=== PATIENT | male | born 1975 | race Caucasian/White ===

== ENCOUNTER 2018-07-05 22:42 | Emergency (ER) | END 2018-07-06 02:38 | disposition home or self-care (01) ==

== ENCOUNTER 2018-12-24 19:21 | Inpatient (IN) | payer OTHER ==
[~2018-12-24] VITALS: Ht 172.7 cm; Wt 99.9 kg
[~2018-12-24 19:21] MED LIST: GABA300C16 PO
[2018-12-24] MEDS ORDERED: VANCOMYCIN 1 GM (PMX) 250 ML IVPB STA (20:28)
[2018-12-24] MEDS ORDERED: CLINDAMYCIN 900 MG/D5W (PMX) 50 ML IVPB STA (20:28)
[2018-12-24] MEDS ORDERED: SODIUM CHLORIDE 0.9% 1L BAG IV* STA (20:28)
[2018-12-24] MEDS ORDERED: PIPER-TAZO 3.375 GM IV (PMX) 100 ML IVPB STA (20:28)
[2018-12-24] MEDS ORDERED: METF500T24 PO (20:56)
[2018-12-24] MEDS ORDERED: GLIP10TA14 PO (20:56)
[2018-12-24] MEDS ORDERED: ONDANSETRON 4 MG INJ IV PRN ×2 (21:30→23:30)
[2018-12-24] MEDS ORDERED: ACETAMINOPHEN 325 MG TAB PO PRN (21:30)
--- NOTE | 2018-12-24 22:35 | ERD ---
ER Documentation Chief Complaint Chief Complaint left foot wound check, states infection x 1 week HPI 43-year-old diabetic who presents to the emergency room with 1 week of a wound to the left lateral foot. The wound is increasing in redness drainage and discharge. He has no significant pain. No fevers or chills. He does not fo llow with a bodybuilder. ROS All systems reviewed and are negative except as per history of present illness. 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 Eyes: EOM intact ENT: Moist mucous membranes Neck: Full ROM Respiratory: No respiratory distress Cardiovascular: Well perfused distally Abdominal: Nondistended : Deferred MSK: Patient's left foot has edema, significant wound and drainage to the left lateral foot near the fifth toe, ulceration on the dorsum of the foot is noted. Neurologic: Alert and oriented, moving all extremities, normal speech, steady gait Skin: As noted above Psych: Normal mood Result Diagram: 12/24/18203412/24/182034 Results 24 hrs Laboratory Tests Test 12/24/18 20:35 12/24/18 20:43 12/24/18 21:00 White Blood Count 19.9 10^3/ul Red Blood Count 4.79 10^6/ul Hemoglobin 13.0 g/dl Hematocrit 39.2 % Mean Corpuscular Volume 81.8 fl Mean Corpuscular Hemoglobin 27.1 pg Mean Corpuscular 33.2 g/dl Hemoglobin Concent Red Cell Distribution Width 12.9 % Platelet Count 210 10^3/UL Mean Platelet Volume 12.0 fl Immature Granulocytes % 0.700 % Neutrophils % 83.3 % Lymphocytes % 8.9 % Monocytes % 6.6 % Eosinophils % 0.2 % Basophils % 0.3 % Nucleated Red Blood Cells % 0.0 /100WBC Immature Granulocytes # 0.140 10^3/ul Neutrophils # 16.6 10^3/ul Lymphocytes # 1.8 10^3/ul Monocytes # 1.3 10^3/ul Eosinophils # 0.0 10^3/ul Basophils # 0.1 10^3/ul Nucleated Red Blood Cells # 0.0 10^3/ul Prothrombin Time 14.1 Sec Prothrombin Time Ratio 1.1 INR International 1.08 Normalized Ratio Activated Partial Thromboplast 41.6 Sec Time Sodium Level 134 mmol/L Potassium Level 3.9 mmol/L Chloride Level 95 mmol/L Carbon Dioxide Level 26 mmol/L Anion Gap 13 Blood Urea Nitrogen 11 mg/dl Creatinine 0.59 mg/dl Est Glomerular Filtrat > 60 mL/min Rate mL/min Glucose Level 331 mg/dl Calcium Level 9.5 mg/dl C-Reactive Protein 26.7 mg/dl POC Venous Lactate 2.2 mmol/L Urine Color YELLOW Urine Clarity SLIGHTLY CLOUDY Urine pH 5.0 Urine Specific [place] 1.037 Urine Ketones 2+ mg/dL Urine Nitrite POSITIVE mg/dL Urine Bilirubin NEGATIVE mg/dL Urine Urobilinogen 1+ mg/dL Urine Leukocyte Esterase 2+ Sweta/ul Urine Microscopic RBC > 182 /HPF Urine Microscopic WBC 94 /HPF Urine Squamous Epithelial Cells FEW /HPF Urine Hemoglobin 3+ mg/dL Urine Glucose 3+ mg/dL Urine Total Protein 2+ mg/dl Current Medications Medications Dose Sig/Jose Start Time Status Last (Trade) Ordered Route PRN Stop Time Admin Dose Reason Admin Sodium 2,050 ml BOLUS OVER 2 12/24/18 DC 12/24/18 Chloride HOURS STAT 20:28 12/24/18 21:07 (NS) IV* 20:30 Vancomycin 250 ml @ ONCE STAT 12/24/18 DC HCl 125 mls/hr IVPB 20:28 12/24/18 22:27 Clindamycin 50 ml @ 50 ONCE STAT 12/24/18 DC 12/24/18 HCl/ mls/hr IVPB 20:28 12/24/18 21:07 Dextrose 21:27 Piperacillin 100 ml @ ONCE STAT 12/24/18 DC Sod/ 200 mls/hr IVPB 20:28 12/24/18 Tazobactam 20:57 Sod Ondansetron 4 mg BRIDGE ORDER 12/24/18 HCl (Zofran PRN IV 21:30 12/25/18 Inj) NAUSEA/VOMITI 21:29 NG 650 mg ER BRIDGE 12/24/18 Acetaminophen PRN PO 21:30 12/25/18 (Tylenol .MILD PAIN 21:29 Tab) 1-3 OR TEMP Insulin 10 unit ONCE ONCE 12/24/18 Human SC 23:00 12/24/18 Lispro 23:01 (Humalog) Procedures/MDM EKG, MONITORS, & DIAGNOSTIC IMAGING: EKG: I reviewed and interpreted a 12-lead EKG. Rhythm: Normal sinus rhythm ST Changes: No contiguous ST segment elevations T waves: No contiguous T wave inversions Impression: No evidence of acute cardiac ischemia X-ray left foot: IMPRESSION: 1. No radiographic evidence of osteomyelitis. If osteomyelitis is persistent clinical concern, MRI or three-phase bone scintigraphy could be obtained. 2. Diffuse soft tissue swelling. LAB INTERPRETATION: Laboratory testing reviewed showing evidence of leukocytosis with left shift Lactic acid elevation of 2.2, normal renal function, hyperglycemia without diabetic ketoacidosis MEDICAL DECISION MAKING: The patient has an obvious infection of his left foot and needs to be evaluated for osteomyelitis. No evidence of necrotizing fasciitis. ER COURSE: * Broad-spectrum antibiotics were provided after blood cultures * Patient does qualify for sepsis. Lactic acid is slightly elevated. Patient given a 30 cc/kg bolus of saline * Patient does have some ketones in the urine but no evidence of anion gap acidosis. Patient does not qualify for diabetic ketoacidosis but will benefit from Humalog which was provided. CONSULTATION: None DISPOSITION PLAN: Accepting care team and consultations: I discussed the current laboratory data, diagnostic imaging and emergency care provided. Admitting team: Dr. Lam Admitting team indication: Insurance directed Sepsis Documentation: Patient's infectious symptoms have not stabilized and the patient is at risk of rapid decompensation. The patient will be admitted for careful hydration, antibiotic therapy, and infectious source control. SEVERE SEPSIS CRITERIA: Infectious source: Left foot cellulitis End organ damage indicated by: [Lactate > 2.0 mmol/L SEPSIS MANAGEMENT Time of recognition of sepsis: Upon MD assessment. Time of recognition of severe sepsis: 2042 Time of recognition of septic shock: No septic shock at this time. 3 HOUR BUNDLE Blood cultures x 2 before broad-spectrum antibiotics: Yes 30 ml/kg NS bolus completed Initial lactate 2.2 Repeat lactate pending repeat SEPTIC SHOCK ASSESSMENT: No lactic acid > 4.0 No persistent hypotension (SBP < 90 or 40 mmHg drop, MAP < 65) despite 30 mL/kg IV fluid bolus VOLUME REASSESSMENT FOR SEPTIC SHOCK: The patient does not meet criteria for septic shock in the emergency department at this time PERSISTENT HYPOTENSION TREATMENT: Comfort care no Central line not Required Vasopressor started not required I considered further perfusion assessment with CVP measurement, SCVO2, bedside ultrasound volume assessment, passive leg raise, trial of further fluid bolus. And proceeded with 30 ml/kg fluid bolus of NSS, broad spectrum antibiotics, and admission. CRITICAL CARE Critical care time 35 minutes Emergent fluid management while maintaining close respiratory support. Provision of immediate and broad-spectrum antibiotic therapy. Simultaneous assessment for possible sources in order to direct targeted therapy. Consideration for invasive and chemical support to prevent cardiopulmonary collapse. Critical care time is independent of procedures performed. Departure Diagnosis: Primary Impression: Diabetic foot ulcer Diabetic foot ulcer location: other Diabetes mellitus type: other specified (including BRENDAN) Laterality: left Non-pressure ulcer stage: unspecified non-pressure ulcer stage Qualified Codes: E13.621 - Other specified diabetes mellitus with foot ulcer; L97.529 - Non-pressure chronic ulcer of other part of left foot with unspecified severity Additional Impressions: Cellulitis of left foot Severe sepsis Hyperglycemia Condition: Stable KULDEEP CALDERON MD Dec 24, 2018 22:35
[2018-12-24] MEDS ORDERED: INSULIN LISPRO 100 UNIT/ML VIAL SC ONE (23:00)
--- NOTE | 2018-12-24 23:15 | HP ---
Date/Time of Note Date/Time of Note DATE: 12/24/18 TIME: 23:15 Assessment/Plan VTE Prophylaxis SCD applied (from Ns): No SCD contraindicated: other (infected wound of lower extremity) Pharmacological prophylaxis: NA/contraindicated Pharm contraindication: other (Possible need for surgical procedure, though he did receive 1 dose of Lovenox) Lines/Catheters IV [facility]from [facility] Saline Lock Assessment/Plan Hospital Course This is a 43-year-old male being admitted to the [facility] floor for: #1 severe sepsis: Secondary to infected diabetic foot wound. Vancomycin and cefepime. Await culture results, wound culture. ESR, CRP. #2 left lower extremity diabetic foot wounds: Patient has a left lateral foot plantar surface wound as well as a anterior foot wound along with early necrosis of his left pinky toe. X-ray does not show any signs of ostium myelitis. Will obtain an MRI to further evaluate. We will also obtain bilateral lower extremity ultrasound Dopplers to rule out DVT and arterial Dopplers to assess flow. Will consult podiatry . #3 poorly controlled diabetes: BMP blood sugar is in the 300s upon admission. I suspect his blood sugars are likely out of control given that he also himself reports blood sugars in the 300s at home. Will check hemoglobin A1c insulin sliding scale. Initiate Lantus as indicated. Strict glycemic control. Will check urine microalbumin. #4 urinary tract infection: Currently on Vanco and cefepime as per 1. Await urine culture results. #5 obesity: We will check hemoglobin A 1C, lipid panel, TSH #6 DVT GI prophylaxis: Patient did receive a dose of Lovenox for DVT prophylaxis, the current time will hold further doses as patient likely will require surgical intervention. Will resume once cleared by podiatry. No GI prophylaxis indicated Further treatment strategy will be implemented as per the clinical course Result Diagram: 12/24/18203412/24/182034 Results 24hrs Laboratory Tests Test 12/24/18 20:35 12/24/18 20:43 12/24/18 21:00 12/24/18 22:45 White Blood Count 19.9 H Red Blood Count 4.79 Hemoglobin 13.0 L Hematocrit 39.2 L Mean Corpuscular 81.8 L Volume Mean Corpuscular 27.1 L Hemoglobin Mean Corpuscular 33.2 Hemoglobin Concent Red Cell 12.9 Distribution Width Platelet Count 210 Mean Platelet 12.0 H Volume Immature 0.700 H Granulocytes % Neutrophils % 83.3 H Lymphocytes % 8.9 L Monocytes % 6.6 Eosinophils % 0.2 Basophils % 0.3 Nucleated Red 0.0 Blood Cells % Immature 0.140 H Granulocytes # Neutrophils # 16.6 H Lymphocytes # 1.8 Monocytes # 1.3 H Eosinophils # 0.0 Basophils # 0.1 Nucleated Red 0.0 Blood Cells # Prothrombin Time 14.1 Prothrombin Time 1.1 Ratio INR International 1.08 Normalized Ratio Activated 41.[address] Time Sodium Level 134 L Potassium Level 3.9 Chloride Level 95 L Carbon Dioxide 26 Level Anion Gap 13 Blood Urea 11 Nitrogen Creatinine 0.59 L Est Glomerular > 60 Filtrat Rate mL/min Glucose Level 331 H Calcium Level 9.5 C-Reactive Protein 26.7 H POC Venous Lactate 2.2 *H 1.2 Urine Color YELLOW Urine Clarity SLIGHTLY CLOUDY A Urine pH 5.0 Urine Specific 1.037 H [place] Urine Ketones 2+ H Urine Nitrite POSITIVE A Urine Bilirubin NEGATIVE Urine Urobilinogen 1+ H Urine Leukocyte 2+ H Esterase Urine Microscopic > 182 H RBC Urine Microscopic 94 H WBC Urine Squamous FEW Epithelial Cells Urine Hemoglobin 3+ H Urine Glucose 3+ H Urine Total 2+ H Protein HPI/ROS Admit Date/Time Admit Date/Time Hx of Present Illness Chief complaint: Left foot wound times 3 weeks, worsened over the last few days This is a 43-year-old male with a past medical history of diabetes who presents today with a left foot wound over the last 3 weeks. Patient reports that approximately 3 weeks ago he had noticed a fluid-filled cyst on the plantar surface of his foot. He drained it himself and put topical antibiotics on it. He states that he did begin to improve however over the past few days he started noticing that the lesion got worse. He also started noticing purplish bluish discoloration of his left great toe and swelling. He denies any pain secondary to his neuropathy. Denies any fevers but he does report chills. He is currently only on oral medications for his diabetes, he does report that he notices at times his blood sugars being in the 300s. Allergies: NKDA Medications: See VERONICA ROS Const: As per HPI Eyes : No pain discharge or redness or change in visual acuity ENT: No pain, sore throat, congestion, congestion, dysphagia or discharge Respiratory: No shortness of breath, cough, sputum, wheezing, or pleuritic pain Cardiovascular: No chest pain, palpitation, PND, or edema GI : no change in appetite, abdominal pain, nausea, vomiting, diarrhea, constipation, or change in the color his stool Genitourinary: No dysuria, hematuria, flank pain , discharge or CVA tenderness Musculoskeletal: As per HPI Skin: As per HPI Neuro: No headache, dizziness, syncope, seizure, focal weakness Endocrine: As per HPI Psych: No hallucination, depression, anxiety or suicidal ideation PMH/Family/Social Past Medical History Diabetes mellitus with neuropathy Medications Current Medications Ondansetron HCl (Zofran Inj) 4 mg BRIDGE ORDER PRN IV NAUSEA/VOMITING; Start 12/24/18 at 21:30; Stop 12/25/18 at 21:29 Acetaminophen (Tylenol Tab) 650 mg ER BRIDGE PRN PO .MILD PAIN 1-3 OR TEMP; Start 12/24/18 at 21:30; Stop 12/25/18 at 21:29 Coded Allergies: No Known Allergy (Unverified , 12/24/18) Past Surgical History Past Surgical Hx: no surgical history Family History Significant Family History: no pertinent family hx Social History Alcohol Use: occasionally Smoking Status: Never smoker Drug Use: none Exam/Review of Systems Vital Signs Vitals Vital Signs Date Temp Pulse Resp B/P (MAP) Pulse Ox O2 O2 Flow FiO2 Time Delivery Rate 12/24/18 99.5 110 18 138/85 100 19:41 (102) Exam Exam General: Patient is a pleasant male currently lying in bed in no acute distress. HEENT: Atraumatic, normocephalic. The pupils are equal, round and reactive. Extraocular motor are intact Neck: Supple with full range of motion. No rigidity or meningismus Chest: Nontender Lungs: Clear to auscultation bilaterally no crackles rales or wheezing Heart: Normal S1-S2, Regular rhythm and rate. No murmur, S3, or S4 Abdomen: Soft , nontender, nondistended , bowel sounds are present. No guarding no rebound tenderness , No masses or organomegaly. No costovertebral temporal angle mass Extremities: Mild swelling noted of the left lower extremity, 1+ palpable pulse of the left lower extremity difficult to fully examine given patient's underlying swelling Skin: Left foot plantar infected wound approximately 2.5 x 2.5 cm, anterior foot 1 x 2 cm wound, left great toe swelling and purplish bluish discoloration. Toenail abnormalities of bilateral feet, Neurologic: Normal mental status, speech normal, cranial nerves II through XII are intact, motor and sensory are intact, Additional Comments PROCEDURE: XR left foot. CLINICAL INDICATION: Wound. TECHNIQUE: 3 portable views of the left foot were obtained. COMPARISON: None. FINDINGS: There is no acute fracture or dislocation. Osseous structures are intact. There is no bony destruction or subperiosteal new bone formation. Joint spaces are maintained. There is a small plantar calcaneal spur. There is moderate diffuse soft tissue swelling. IMPRESSION: 1. No radiographic evidence of osteomyelitis. If osteomyelitis is persistent clinical concern, MRI or three-phase bone scintigraphy could be obtained. 2. Diffuse soft tissue swelling. RPTAT:HAJM Physician Sylvie Date Time Electronically viewed and signed by Physician Sylvie on 12/24/2018 21:57 RM/ CC: KULDEEP CALDERON MD [id number] LAURI PEDERSEN Dec 24, 2018 23:15
[2018-12-24] MEDS ORDERED: morphine 2 MG INJ IV PRN (23:30)
[2018-12-24] MEDS ORDERED: VANCOMYCIN IV PER PHARMACY XX SCH (23:30)
[2018-12-24] MEDS ORDERED: DOCUSATE SODIUM 100 MG CAP PO PRN (23:30)
[2018-12-24] MEDS ORDERED: BISACODYL (EC) 5 MG TAB PO PRN (23:30)
[2018-12-24] MEDS ORDERED: HYDROCODONE/APAP (5/325) TAB PO PRN (23:30)
[2018-12-24] MEDS ORDERED: NACL 0.9% 3 ML SYG IV SCH (23:30)
[2018-12-25] VITALS: BP 118/66; PULSE 112; RESP 18
[2018-12-25 00:08] VITALS: Ht 172.7 cm; Wt 99.9 kg
[2018-12-25] MEDS: ACCU-CHEK XX SCH (01:17)
[2018-12-25] MEDS: ACETAMINOPHEN 325 MG TAB PO PRN ×2 (01:26→14:38)
[2018-12-25 02:10] VITALS: BP 138/72; PULSE 109; RESP 18
[2018-12-25] MEDS: VANCOMYCIN HCL 1.25 GM in SOD CHLORIDE 0.9% 250 ML IVPB SCH ×3 (06:17→22:23)
[2018-12-25] MEDS ORDERED: INSULIN GLARGINE [LANTus] (100 UNITS/ML) SYG SC SCH ×2 (08:00→20:00)
[2018-12-25 08:07] VITALS: BP 136/80; PULSE 108; RESP 18
[2018-12-25] MEDS: ENOXAPARIN 30 MG/0.3 ML SYG SC SCH (08:29)
[2018-12-25] MEDS: INSULIN ASPART [NOVOLOG] 3 ML PEN SC SCH ×4 (08:30→21:20)
[2018-12-25] MEDS: CEFEPIME 2GM/50 ML (PMX) 50 ML IVPB SCH ×2 (10:59→21:16)
[2018-12-25 14:23] VITALS: BP 133/81; PULSE 110; RESP 17
--- NOTE | 2018-12-25 15:32 | PN ---
Date/Time of Note Date/Time of Note DATE: 12/25/18 TIME: 15:30 Assessment/Plan VTE Prophylaxis Risk score (from Ns)>0 risk: 4 SCD applied (from Ns): No SCD contraindicated: other Pharmacological prophylaxis: LMWH Lines/Catheters IV Catheter Type (from [facility]): Peripheral IV Urinary Cath still in place: No Assessment/Plan Hospital Course SUBJECTIVE: Denies any significant left lower extremity pain. OBJECTIVE: Physical Exam General: Obese, 43 year-old male lying in bed in no apparent distress. HEENT: Normocephalic, atraumatic. Eyes: Anicteric sclerae, conjunctivae clear. ENT: Nasal septum midline, oral mucosa moist. Neck: Short with increased neck circumference. Respiratory: Bilaterally diminished breath sounds. No use of accessory muscles of respiration. No adventitious breath sounds. Cardiovascular: S1, S2 heard. Regular rate and rhythm. Abdomen: Soft, nontender, and nondistended. Bowel sounds positive in all 4 quadrants. Genitourinary: Deferred. Extremities: No cyanosis, no clubbing. Left foot dressing. Left lower extremi ty edema and erythema. Neurologic: Cranial nerves II through XII grossly intact. The patient is awake, alert, and oriented. Labs & Vitals per chart ASSESSMENT & PLAN 43-year-old male with comorbidities including obesity, diabetes mellitus type 2, and neuropathy who came to the emergency room with chief complaint of left foot wound that has been going on for the past 3 weeks. As per the patient he had a fluid-filled cyst on the plantar surface of his foot that he drained himself and tried putting topical antibiotics. He denied any fevers or chills. In the emergency room, the patient was noticed to have evidence of sepsis with leukocytosis, febrile illness, and tachycardia. The patient was admitted to inpatient setting for further treatment and evaluation. 1. Sepsis with leukocytosis, febrile illness, and tachycardia present on admission secondary to underlying left foot infection and underlying urinary tract infection. -Continue empiric antimicrobials -Pancultures pending. -Obtain infectious diseases consult. 2. Infected left foot diabetic ulcer. -Podiatry has been consulted. -Local wound care as per podiatry. -Continue antimicrobials. -Left foot x-ray negative for any evidence of osteomyelitis. 3. Suspected urinary tract infection. -Continue antimicrobials -Pending urine cultures. 4. Diabetes mellitus type 2. -Uncontrolled. -Hemoglobin A1c 12.7. -Continue sliding scale insulin along with pre-meal insulin and basal insulin. -Diabetes education consult. 5. Anemia. -Microcytic and hypochromic -Monitor H&H closely. 6. Obesity. -BMI more than 33.5 kg/m. -Advised weight reduction. -Dietary consult. 7. Fluids, electrolytes, and nutrition. -Carbohydrate controlled diet. 8. DVT prophylaxis. -Subcutaneous Lovenox. 9. Plan. -Continue empiric antimicrobials -Await final cultures -Await further podiatry recommendations. -Obtain ID consult. The patient was seen in collaboration with Dr. Agarwal. Result Diagram: 12/25/1852112/25/18 05 Results 24hrs Laboratory Tests Test 12/24/18 20:35 12/24/18 20:43 12/24/18 21:00 12/24/18 22:45 White Blood Count 19.9 H Red Blood Count 4.79 Hemoglobin 13.0 L Hematocrit 39.2 L Mean Corpuscular 81.8 L Volume Mean Corpuscular 27.1 L Hemoglobin Mean Corpuscular 33.2 Hemoglobin Concent Red Cell 12.9 Distribution Width Platelet Count 210 Mean Platelet 12.0 H Volume Immature 0.700 H Granulocytes % Neutrophils % 83.3 H Lymphocytes % 8.9 L Monocytes % 6.6 Eosinophils % 0.2 Basophils % 0.3 Nucleated Red 0.0 Blood Cells % Immature 0.140 H Granulocytes # Neutrophils # 16.6 H Lymphocytes # 1.8 Monocytes # 1.3 H Eosinophils # 0.0 Basophils # 0.1 Nucleated Red 0.0 Blood Cells # Prothrombin Time 14.1 Prothrombin Time 1.1 Ratio INR International 1.08 Normalized Ratio Activated 41.[address] Time Sodium Level 134 L Potassium Level 3.9 Chloride Level 95 L Carbon Dioxide 26 Level Anion Gap 13 Blood Urea 11 Nitrogen Creatinine 0.59 L Est Glomerular > 60 Filtrat Rate mL/min Glucose Level 331 H Calcium Level 9.5 C-Reactive Protein 26.7 H POC Venous Lactate 2.2 *H 1.2 Urine Color YELLOW Urine Clarity SLIGHTLY CLOUDY A Urine pH 5.0 Urine Specific 1.037 H [place] Urine Ketones 2+ H Urine Nitrite POSITIVE A Urine Bilirubin NEGATIVE Urine Urobilinogen 1+ H Urine Leukocyte 2+ H Esterase Urine Microscopic > 182 H RBC Urine Microscopic 94 H WBC Urine Squamous FEW Epithelial Cells Urine Hemoglobin 3+ H Urine Glucose 3+ H Urine Total 2+ H Protein Test 12/24/18 23:29 12/25/18 00:35 12/25/18 02:10 12/25/18 05:22 Bedside Glucose 286 H 232 H Lactic Acid Level 1.3 White Blood Count 17.5 H Red Blood Count 3.98 L Hemoglobin 10.9 L Hematocrit 33.0 L Mean Corpuscular 82.9 Volume Mean Corpuscular 27.4 L Hemoglobin Mean Corpuscular 33.0 Hemoglobin Concent Red Cell 12.9 Distribution Width Platelet Count 170 Mean Platelet 11.9 H Volume Immature 0.500 H Granulocytes % Neutrophils % 77.0 Lymphocytes % 13.9 L Monocytes % 8.1 Eosinophils % 0.2 Basophils % 0.3 Nucleated Red 0.0 Blood Cells % Immature 0.090 H Granulocytes # Neutrophils # 13.5 H Lymphocytes # 2.4 Monocytes # 1.4 H Eosinophils # 0.0 Basophils # 0.1 Nucleated Red 0.0 Blood Cells # Sodium Level 137 Potassium Level 3.6 Chloride Level 104 Carbon Dioxide 27 Level Anion Gap 6 Blood Urea 10 Nitrogen Creatinine 0.57 L Est Glomerular > 60 Filtrat Rate mL/min Glucose Level 240 H Hemoglobin A1c 12.7 H Calcium Level 8.7 Magnesium Level 1.7 Total Bilirubin 0.7 Direct Bilirubin 0.00 Indirect Bilirubin 0.7 Aspartate Amino 13 L Transf (AST/SGOT) Alanine 11 L Aminotransferase ( ALT/SGPT) Alkaline 139 H Phosphatase Total Protein 7.1 Albumin 3.2 L Globulin 3.90 H Albumin/Globulin 0.82 Ratio Triglycerides 145 Level Cholesterol Level 137 LDL Cholesterol, 85 Calculated HDL Cholesterol 23 L Cholesterol/HDL 5.9 Ratio Thyroid 0.943 Stimulating Hormone (TSH) Test 12/25/18 08:06 12/25/18 12:28 Bedside Glucose 248 H 256 H Exam/Review of Systems Exam Vitals Vital Signs Date Temp Pulse Resp B/P (MAP) Pulse Ox O2 O2 Flow FiO2 Time Delivery Rate 12/25/18 102.0 14:38 12/25/18 110 17 133/81 99 Room Air 14:23 (98) Results Results 24hrs Laboratory Tests Test 12/24/18 20:35 12/24/18 20:43 12/24/18 21:00 12/24/18 22:45 White Blood Count 19.9 H Red Blood Count 4.79 Hemoglobin 13.0 L Hematocrit 39.2 L Mean Corpuscular 81.8 L Volume Mean Corpuscular 27.1 L Hemoglobin Mean Corpuscular 33.2 Hemoglobin Concent Red Cell 12.9 Distribution Width Platelet Count 210 Mean Platelet 12.0 H Volume Immature 0.700 H Granulocytes % Neutrophils % 83.3 H Lymphocytes % 8.9 L Monocytes % 6.6 Eosinophils % 0.2 Basophils % 0.3 Nucleated Red 0.0 Blood Cells % Immature 0.140 H Granulocytes # Neutrophils # 16.6 H Lymphocytes # 1.8 Monocytes # 1.3 H Eosinophils # 0.0 Basophils # 0.1 Nucleated Red 0.0 Blood Cells # Prothrombin Time 14.1 Prothrombin Time 1.1 Ratio INR International 1.08 Normalized Ratio Activated 41.[address] Time Sodium Level 134 L Potassium Level 3.9 Chloride Level 95 L Carbon Dioxide 26 Level Anion Gap 13 Blood Urea 11 Nitrogen Creatinine 0.59 L Est Glomerular > 60 Filtrat Rate mL/min Glucose Level 331 H Calcium Level 9.5 C-Reactive Protein 26.7 H POC Venous Lactate 2.2 *H 1.2 Urine Color YELLOW Urine Clarity SLIGHTLY CLOUDY A Urine pH 5.0 Urine Specific 1.037 H [place] Urine Ketones 2+ H Urine Nitrite POSITIVE A Urine Bilirubin NEGATIVE Urine Urobilinogen 1+ H Urine Leukocyte 2+ H Esterase Urine Microscopic > 182 H RBC Urine Microscopic 94 H WBC Urine Squamous FEW Epithelial Cells Urine Hemoglobin 3+ H Urine Glucose 3+ H Urine Total 2+ H Protein Test 12/24/18 23:29 12/25/18 00:35 12/25/18 02:10 12/25/18 05:22 Bedside Glucose 286 H 232 H Lactic Acid Level 1.3 White Blood Count 17.5 H Red Blood Count 3.98 L Hemoglobin 10.9 L Hematocrit 33.0 L Mean Corpuscular 82.9 Volume Mean Corpuscular 27.4 L Hemoglobin Mean Corpuscular 33.0 Hemoglobin Concent Red Cell 12.9 Distribution Width Platelet Count 170 Mean Platelet 11.9 H Volume Immature 0.500 H Granulocytes % Neutrophils % 77.0 Lymphocytes % 13.9 L Monocytes % 8.1 Eosinophils % 0.2 Basophils % 0.3 Nucleated Red 0.0 Blood Cells % Immature 0.090 H Granulocytes # Neutrophils # 13.5 H Lymphocytes # 2.4 Monocytes # 1.4 H Eosinophils # 0.0 Basophils # 0.1 Nucleated Red 0.0 Blood Cells # Sodium Level 137 Potassium Level 3.6 Chloride Level 104 Carbon Dioxide 27 Level Anion Gap 6 Blood Urea 10 Nitrogen Creatinine 0.57 L Est Glomerular > 60 Filtrat Rate mL/min Glucose Level 240 H Hemoglobin A1c 12.7 H Calcium Level 8.7 Magnesium Level 1.7 Total Bilirubin 0.7 Direct Bilirubin 0.00 Indirect Bilirubin 0.7 Aspartate Amino 13 L Transf (AST/SGOT) Alanine 11 L Aminotransferase ( ALT/SGPT) Alkaline 139 H Phosphatase Total Protein 7.1 Albumin 3.2 L Globulin 3.90 H Albumin/Globulin 0.82 Ratio Triglycerides 145 Level Cholesterol Level 137 LDL Cholesterol, 85 Calculated HDL Cholesterol 23 L Cholesterol/HDL 5.9 Ratio Thyroid 0.943 Stimulating Hormone (TSH) Test 12/25/18 08:06 12/25/18 12:28 Bedside Glucose 248 H 256 H Medications Medication Current Medications Ondansetron HCl (Zofran Inj) 4 mg BRIDGE ORDER PRN IV NAUSEA/VOMITING; Start 12/24/18 at 21:30; Stop 12/25/18 at 21:29 Acetaminophen (Tylenol Tab) 650 mg ER BRIDGE PRN PO .MILD PAIN 1-3 OR TEMP; Start 12/24/18 at 21:30; Stop 12/25/18 at 21:29 Vancomycin HCl (Vanco Iv Per Pharmacy) VANCOMYCIN PER PHARMACY PER PROTOCOL XX ; Start 12/24/18 at 23:30 Cefepime HCl 50 ml @ 100 mls/hr Q12 IVPB Last administered on 12/25/18at 10:59; Admin Dose 100 MLS/HR; Start 12/25/18 at 09:00 IV Flush (NS 3 ml) 3 ml PER PROTOCOL IV ; Start 12/24/18 at 23:30 Ondansetron HCl (Zofran Inj) 4 mg Q6H PRN IV NAUSEA/VOMITING; Start 12/24/18 at 23:30 Acetaminophen (Tylenol Tab) 650 mg Q6H PRN PO .PAIN 1-3 OR TEMP Last administered on 12/25/18at 14:38; Admin Dose 650 MG; Start 12/24/18 at 23:30 Acetaminophen/ Hydrocodone Bitart ([place] (5/325)) 1 tab Q6H PRN PO .MOD PAIN 4-6; Start 12/24/18 at 23:30 Morphine Sulfate (morphine) 2 mg Q4H PRN IV .SEVERE PAIN 7-10; Start 12/24/18 at 23:30 Docusate Sodium (Colace) 100 mg Q12H PRN PO .CONSTIPATION; Start 12/24/18 at 23:30 Bisacodyl (Dulcolax) 5 mg DAILY PRN PO .CONSTIPATION; Start 12/24/18 at 23:30 Enoxaparin Sodium (Lovenox) 30 mg DAILY SC Last administered on 12/25/18at 08:29; Admin Dose 30 MG; Start 12/25/18 at 09:00; Status Hold Diagnostic Test (Pha) (Accu-Chek) 1 XX ; Start 12/25/18 at 02:00 Insulin Aspart (Novolog Insulin Pen) NOVOLOG *MILD* ALGORITHM WITH MEALS BEDTIME SC Last administered on 12/25/18at 12:36; Admin Dose 3 UNIT; Start 12/25/18 at 08:00 Vancomycin HCl 1.25 gm/Sodium Chloride 250 ml @ 83.333 mls/ hr Q8H IVPB Last administered on 12/25/18at 14:38; Admin Dose 83.333 MLS/HR; Start 12/25/18 at 06:00 Insulin Glargine (Lantus) 15 units DAILY@0800 SC Last administered on 12/25/18at 08:31; Admin Dose 15 UNITS; Start 12/25/18 at 08:00 Miscellaneous Information (*Rx Drug Level Order Reminder*) VANCOMYCIN TROUGH AT 0500 ONCE ONCE XX ; Start 12/26/18 at 05:00; Stop 12/26/18 at 05:01 Sodium Hypochlorite (Dakin'S (Dilute )) 1 applic BID IRR ; Start 12/25/18 at 21:00 JONNY HOWARD NP Dec 25, 2018 15:32
--- NOTE | 2018-12-25 16:17 | CONS ---
DATE OF ADMISSION: 12/24/2018 DATE OF CONSULTATION: 12/25/2018 TYPE OF CONSULTATION: Infectious Disease. REASON FOR CONSULTATION: Antibiotic management. HISTORY OF PRESENT ILLNESS: Tito Medrano is a 43-year-old male who presented to the Emerg ency Room with one week of a wound on his left lateral foot. The wound increasing in redness, draina ge and discharge. He denies significant pain. He has no fever or chills. Past problems include joey betes mellitus for which he is on metformin and glipizide. FAMILY HISTORY: Positive for diabetes. SOCIAL HISTORY: He is a social drinker. He does not smoke or abuse drugs. ALLERGIES: NONE TO PENICILLIN, SULFA OR FOODS. MEDICATIONS: Per chart. REVIEW OF SYSTEMS: As per HPI. PHYSICAL EXAMINATION: GENERAL: The patient is well-developed, well-nourished, no acute distress. VITAL SIGNS: Stable. T-max 99.5. SKIN: Without generalized rash. HEENT: Within normal limits. NECK: Supple. LYMPH NODES: None palpable. CHEST: Decreased breath sounds at the bases. HEART: Without murmur or gallop. ABDOMEN: Soft, nontender, without organosplenomegaly or masses. EXTREMITIES: His left foot has edema. He has a wound and drainage on the left lateral aspect near t he fifth toe. Ulceration on the dorsum of the foot is also noted. RECTAL AND GENITAL: Deferred. NEUROLOGIC: No focal neurological abnormality. ANCILLARY LABORATORY DATA: White count is 19.9 with 83% neutrophils, H and H are 13 and 39.2, platel et count 210,000. BUN and creatinine 11/0.59, glucose 331. The patient was begun on vancomycin, clindamycin and Zosyn. X-ray showed no radiographic evidence of osteomyelitis. The patient was changed to vancomycin and cefepime. Await culture results, wound cu lture sed rate and CRP. An MRI was ordered. He also had a bilateral lower extremity ultrasound Dopp ler to rule out DVT and arterial Dopplers to assess flow. [employer] Expert is Dr. Sin. His diabetes i s poorly controlled. His white count today is 17.5. His urine is 2+ leukocyte esterase and 94 white cells per high-power field, so he has urinary tract infection as well. The DVT study was negative. Arterial study showed monophasic waveforms in the bilateral dorsalis pedis arteries consistent with significant stenosis. We will continue him on current regimen of cefepime and vancomycin and await Carly Sin's assessment. I want to thank the hospitalist for asking us to see this patient in consultation and also Dr. Gabo valdivia for asking us to see this patient in consultation. Dictated By: SANDRA POWELL MD, JD/MARY Conf#: [id number] DID#: [id number] CC: LAURI PEDERSEN MD;*EndCC*
[2018-12-25] MEDS ORDERED: INSULIN ASPART [NOVOLOG] 3 ML PEN SC SCH (17:35)
[2018-12-25 20:00] VITALS: BP 119/62; PULSE 104; RESP 18
[2018-12-25] MEDS: SODIUM HYPOCHLORITE (1/40) 1 APPLIC BTL IRR SCH (21:18)
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
[2018-12-26] MEDS: ACETAMINOPHEN 325 MG TAB PO PRN (01:32)
[2018-12-26 02:00] VITALS: BP 118/58; PULSE 100; RESP 18
[2018-12-26] MEDS: ACCU-CHEK XX SCH (02:00)
[2018-12-26] MEDS: VANCOMYCIN HCL 1.25 GM in SOD CHLORIDE 0.9% 250 ML IVPB SCH ×3 (07:00→22:17)
[2018-12-26] MEDS ORDERED: POTASSIUM CHLORIDE (SR) 20 MEQ TAB PO ONE (07:30)
--- NOTE | 2018-12-26 08:04 | PN ---
Date/Time of Note Date/Time of Note DATE: 12/26/18 TIME: 08:03 Assessment/Plan VTE Prophylaxis Risk score (from Nsg)>0 risk: 4 SCD applied (from Nsg): Yes Pharmacological prophylaxis: LMWH Lines/Catheters IV Catheter Type (from Nrsg): Peripheral IV Urinary Cath still in place: No Assessment/Plan Hospital Course SUBJECTIVE: Denies any significant left lower extremity pain. OBJECTIVE: Physical Exam General: Obese, 43 year-old male lying in bed in no apparent distress. HEENT: Normocephalic, atraumatic. Eyes: Anicteric sclerae, conjunctivae clear. ENT: Nasal septum midline, oral mucosa moist. Neck: Short with increased neck circumference. Respiratory: Bilaterally diminished breath sounds. No use of accessory muscles of respiration. No adventitious breath sounds. Cardiovascular: S1, S2 heard. Regular rate and rhythm. Abdomen: Soft, nontender, and nondistended. Bowel sounds positive in all 4 quadrants. Genitourinary: Deferred. Extremities: No cyanosis, no clubbing. Left foot dressing. Left lower extremity edema and erythema. Neurologic: Cranial nerves II through XII grossly intact. The patient is awake, alert, and oriented. Labs & Vitals per chart ASSESSMENT & PLAN 43-year-old male with comorbidities including obesity, diabetes mellitus type 2, and neuropathy who came to the emergency room with chief complaint of left foot wound that has been going on for the past 3 weeks. As per the patient he had a fluid-filled cyst on the plantar surface of his foot that he drained himself and tried putting topical antibiotics. He denied any fevers or chills. In the emergency room, the patient was noticed to have evidence of sepsis with leukocytosis, febrile illness, and tachycardia. The patient was admitted to inpatient setting for further treatment and evaluation. 1. Sepsis with leukocytosis, febrile illness, and tachycardia present on admission secondary to underlying left foot infection and underlying urinary tract infection. -Continue empiric antimicrobials -Infectious diseases consult. 2. Infected left foot diabetic ulcer. -Podiatry following . -Local wound care as per podiatry. -Continue antimicrobials. -Left foot x-ray negative for any evidence of osteomyelitis. -Left foot MRI showing findings consistent with osteomyelitis of the fifth toe proximal phalanx. 3. Suspected urinary tract infection. -Continue antimicrobials -Pending urine cultures. 4. Diabetes mellitus type 2. -Uncontrolled. -Hemoglobin A1c 12.7. -Continue sliding scale insulin along with pre-meal insulin and basal insulin. -Diabetes education consult. 5. Anemia. -Microcytic and hypochromic -Monitor H&H closely. 6. Obesity. -BMI more than 33.5 kg/m. -Advised weight reduction. -Dietary consult. 7. Fluids, electrolytes, and nutrition. -Carbohydrate controlled diet. 8. DVT prophylaxis. -Subcutaneous Lovenox. 9. Plan. -Continue empiric antimicrobials -Await final cultures -Await further podiatry recommendations. -Replete potassium. -Adjust insulin dosing. The patient was seen in collaboration with Dr. Agarwal. Result Diagram: 12/26/1852112/26/18521 Results 24hrs Laboratory Tests Test 12/25/18 08:06 12/25/18 12:28 12/25/18 17:28 12/25/18 21:14 Bedside Glucose 248 H 256 H 290 H 248 H Test 12/26/18 01:33 12/26/18 05:22 Bedside Glucose 252 H White Blood Count 14.5 H Red Blood Count 4.09 L Hemoglobin 11.0 L Hematocrit 33.6 L Mean Corpuscular 82.2 Volume Mean Corpuscular 26.9 L Hemoglobin Mean Corpuscular 32.7 Hemoglobin Concent Red Cell Distribution 13.0 Width Platelet Count 203 Mean Platelet Volume 11.9 H Immature Granulocytes 0.600 H % Neutrophils % 71.9 Lymphocytes % 18.5 Monocytes % 8.1 Eosinophils % 0.4 Basophils % 0.5 Nucleated Red Blood 0.0 Cells % Immature Granulocytes 0.080 H # Neutrophils # 10.4 H Lymphocytes # 2.7 Monocytes # 1.2 H Eosinophils # 0.1 Basophils # 0.1 Nucleated Red Blood 0.0 Cells # Sodium Level 134 L Potassium Level 3.2 L Chloride Level 100 Carbon Dioxide Level 26 Anion Gap 8 Blood Urea Nitrogen 10 Creatinine 0.49 L Est Glomerular Filtrat > 60 Rate mL/min Glucose Level 266 H Calcium Level 9.0 Phosphorus Level 3.3 Magnesium Level 1.9 Vancomycin Level 12.1 Trough Exam/Review of Systems Exam Vitals Vital Signs Date Temp Pulse Resp B/P (MAP) Pulse Ox O2 O2 Flow FiO2 Time Delivery Rate 12/26/18 98.7 02:17 12/26/18 100 18 118/58 95 Room Air 02:00 (78) Intake and Output 12/25/18 12/25/18 12/26/18 1414:59 22:59 06:59 IntakeIntake Total 1300 ml 860 ml 250 ml OutputOutput Total 300 ml BalanceBalance 1300 ml 560 ml 250 ml Results Results 24hrs Laboratory Tests Test 12/25/18 08:06 12/25/18 12:28 12/25/18 17:28 12/25/18 21:14 Bedside Glucose 248 H 256 H 290 H 248 H Test 12/26/18 01:33 12/26/18 05:22 Bedside Glucose 252 H White Blood Count 14.5 H Red Blood Count 4.09 L Hemoglobin 11.0 L Hematocrit 33.6 L Mean Corpuscular 82.2 Volume Mean Corpuscular 26.9 L Hemoglobin Mean Corpuscular 32.7 Hemoglobin Concent Red Cell Distribution 13.0 Width Platelet Count 203 Mean Platelet Volume 11.9 H Immature Granulocytes 0.600 H % Neutrophils % 71.9 Lymphocytes % 18.5 Monocytes % 8.1 Eosinophils % 0.4 Basophils % 0.5 Nucleated Red Blood 0.0 Cells % Immature Granulocytes 0.080 H # Neutrophils # 10.4 H Lymphocytes # 2.7 Monocytes # 1.2 H Eosinophils # 0.1 Basophils # 0.1 Nucleated Red Blood 0.0 Cells # Sodium Level 134 L Potassium Level 3.2 L Chloride Level 100 Carbon Dioxide Level 26 Anion Gap 8 Blood Urea Nitrogen 10 Creatinine 0.49 L Est Glomerular Filtrat > 60 Rate mL/min Glucose Level 266 H Calcium Level 9.0 Phosphorus Level 3.3 Magnesium Level 1.9 Vancomycin Level 12.1 Trough Medications Medication Current Medications Vancomycin HCl (Vanco Iv Per Pharmacy) VANCOMYCIN PER PHARMACY PER PROTOCOL XX ; Start 12/24/18 at 23:30 Cefepime HCl 50 ml @ 100 mls/hr Q12 IVPB Last administered on 12/25/18at 21:16; Admin Dose 100 MLS/HR; Start 12/25/18 at 09:00 IV Flush (NS 3 ml) 3 ml PER PROTOCOL IV ; Start 12/24/18 at 23:30 Ondansetron HCl (Zofran Inj) 4 mg Q6H PRN IV NAUSEA/VOMITING; Start 12/24/18 at 23:30 Acetaminophen (Tylenol Tab) 650 mg Q6H PRN PO .PAIN 1-3 OR TEMP Last administered on 12/26/18 01:32; Admin Dose 650 MG; Start 12/24/18 at 23:30 Acetaminophen/ Hydrocodone Bitart ([place] (5/325)) 1 tab Q6H PRN PO .MOD PAIN 4- 6; Start 12/24/18 at 23:30 Morphine Sulfate (morphine) 2 mg Q4H PRN IV .SEVERE PAIN 7-10; Start 12/24/18 at 23:30 Docusate Sodium (Colace) 100 mg Q12H PRN PO .CONSTIPATION; Start 12/24/18 at 23:30 Bisacodyl (Dulcolax) 5 mg DAILY PRN PO .CONSTIPATION; Start 12/24/18 at 23:30 Enoxaparin Sodium (Lovenox) 30 mg DAILY SC Last administered on 12/25/18 08:29; Admin Dose 30 MG; Start 12/25/18 at 09:00; Status Hold Diagnostic Test (Pha) (Accu-Chek) 1 ea 02 XX ; Start 12/25/18 at 02:00 Insulin Aspart (Novolog Insulin Pen) NOVOLOG *MILD* ALGORITHM WITH MEALS BEDTIME SC Last administered on 12/25/18 21:20; Admin Dose 2 UNIT; Start 12/25/18 at 08:00 Vancomycin HCl 1.25 gm/Sodium Chloride 250 ml @ 83.333 mls/ hr Q8H IVPB Last administered on 12/26/18 07:00; Admin Dose 83.333 MLS/HR; Start 12/25/18 at 06:00 Sodium Hypochlorite ([place]akin'S (Dilute )) 1 applic BID IRR Last administered on 12/25/18 21:18; Admin Dose 1 APPLIC; Start 12/25/18 at 21:00 Insulin Glargine (Lantus) 24 units DAILY@2000 SC Last administered on 12/25/18 21:17; Admin Dose 24 UNITS; Start 12/25/18 at 20:00 Insulin Aspart (Novolog Insulin Pen) 8 unit WITH MEALS SC Last administered on 12/25/18 17:36; Admin Dose 8 UNIT; Start 12/25/18 at 17:35 JONNY HOWARD NP Dec 26, 2018 08:04
[2018-12-26] MEDS: INSULIN ASPART [NOVOLOG] 3 ML PEN SC SCH ×6 (08:10→21:00)
[2018-12-26 08:46] VITALS: BP 132/74; PULSE 85; RESP 18
[2018-12-26] MEDS: SODIUM HYPOCHLORITE (1/40) 1 APPLIC BTL IRR SCH ×2 (09:00→21:28)
[2018-12-26] MEDS: CEFEPIME 2GM/50 ML (PMX) 50 ML IVPB SCH ×2 (10:08→21:26)
[2018-12-26] MEDS: CHOLECALCIFEROL 2,000 UNIT CAP PO SCH (13:48)
[2018-12-26 14:00] VITALS: BP 131/69; PULSE 98; RESP 18
--- NOTE | 2018-12-26 19:17 | CONS ---
Assessment/Plan Assessment/Plan Hospital Course (Demo Recall) Patient is alert feels good denies pain no fevers. Family at bedside T-max 100.3 WBC 14.5 platelets 203 neutrophils 71.9 BUN 10 creatinine 0.49 Microbiology: Wound culture growing strep agalactiae urine culture growing staph aureus preliminary Antimicrobials: Vancomycin, cefepime Physical examination: Obese well-developed middle-aged man who is alert in no distress. Head atraumatic normocephalic. Neck is supple. Chest rise symmetrical breath sounds clear. Heart: S1-S2. Abdomen soft bowel sounds present. Extremities: Left foot dressing intact left lower extremity edematous with slight erythema Assessment: 1. Resolving sepsis, present on admission 2. 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 Poorly controlled diabetes 4. Obesity 5. Peripheral vascular and arterial disease 6. UTI Plan: Patient remained stable, podiatry follows, continue antibiotics, await for final cultures, consider vascular surgery evaluation Consultation Date/Type/Reason Admit Date/Time Dec 24, 2018 at 21:20 Initial Consult Date Type of Consult id Date/Time of Note DATE: 12/26/18 TIME: 19:16 Exam/Review of Systems Exam Vitals Vital Signs Date Temp Pulse Resp B/P (MAP) Pulse Ox O2 O2 Flow FiO2 Time Delivery Rate 12/26/18 100.3 98 18 131/69 98 Room Air 14:00 (89) Intake and Output 12/25/18 12/25/18 12/26/18 1515:00 23:00 07:00 IntakeIntake Total 1300 ml 860 ml 250 ml OutputOutput Total 300 ml BalanceBalance 1300 ml 560 ml 250 ml Results Result Diagram: 12/26/18 0522 12/26/18 05 Results 24hrs Laboratory Tests Test 12/25/18 21:14 12/26/18 01:33 12/26/18 05:22 12/26/18 08:06 Bedside Glucose 248 H 252 H 241 H White Blood Count 14.5 H Red Blood Count 4.09 L Hemoglobin 11.0 L Hematocrit 33.6 L Mean Corpuscular 82.2 Volume Mean Corpuscular 26.9 L Hemoglobin Mean Corpuscular 32.7 Hemoglobin Concent Red Cell 13.0 Distribution Width Platelet Count 203 Mean Platelet Volume 11.9 H Immature 0.600 H Granulocytes % Neutrophils % 71.9 Lymphocytes % 18.5 Monocytes % 8.1 Eosinophils % 0.4 Basophils % 0.5 Nucleated Red Blood 0.0 Cells % Immature 0.080 H Granulocytes # Neutrophils # 10.4 H Lymphocytes # 2.7 Monocytes # 1.2 H Eosinophils # 0.1 Basophils # 0.1 Nucleated Red Blood 0.0 Cells # Sodium Level 134 L Potassium Level 3.2 L Chloride Level 100 Carbon Dioxide Level 26 Anion Gap 8 Blood Urea Nitrogen 10 Creatinine 0.49 L Est Glomerular > 60 Filtrat Rate mL/min Glucose Level 266 H Calcium Level 9.0 Phosphorus Level 3.3 Magnesium Level 1.9 Vitamin D < 12.8 L 1,25-Dihydroxy Vancomycin Level 12.1 Trough Test 12/26/18 12:13 12/26/18 17:33 Bedside Glucose 263 H 251 H Medications Medication Current Medications Vancomycin HCl (Vanco Iv Per Pharmacy) VANCOMYCIN PER PHARMACY PER PROTOCOL XX ; Start 12/24/18 at 23:30 Cefepime HCl 50 ml @ 100 mls/hr Q12 IVPB Last administered on 12/26/18at 10:08; Admin Dose 100 MLS/HR; Start 12/25/18 at 09:00 IV Flush (NS 3 ml) 3 ml PER PROTOCOL IV ; Start 12/24/18 at 23:30 Ondansetron HCl (Zofran Inj) 4 mg Q6H PRN IV NAUSEA/VOMITING; Start 12/24/18 at 23:30 Acetaminophen (Tylenol Tab) 650 mg Q6H PRN PO .PAIN 1-3 OR TEMP Last administered on 12/26/18at 01:32; Admin Dose 650 MG; Start 12/24/18 at 23:30 Acetaminophen/ Hydrocodone Bitart ([place] (5/325)) 1 tab Q6H PRN PO .MOD PAIN 4- 6; Start 12/24/18 at 23:30 Morphine Sulfate (morphine) 2 mg Q4H PRN IV .SEVERE PAIN 7-10; Start 12/24/18 at 23:30 Docusate Sodium (Colace) 100 mg Q12H PRN PO .CONSTIPATION; Start 12/24/18 at 23:30 Bisacodyl (Dulcolax) 5 mg DAILY PRN PO .CONSTIPATION; Start 12/24/18 at 23:30 Enoxaparin Sodium (Lovenox) 30 mg DAILY SC Last administered on 12/25/18 08:29; Admin Dose 30 MG; Start 12/25/18 at 09:00; Status Hold Diagnostic Test (Pha) (Accu-Chek) 1 ea 02 XX ; Start 12/25/18 at 02:00 Insulin Aspart (Novolog Insulin Pen) NOVOLOG *MILD* ALGORITHM WITH MEALS BEDTIME SC Last administered on 12/26/18 17:41; Admin Dose 3 UNIT; Start at 08:00 Vancomycin HCl 1.25 gm/Sodium Chloride 250 ml @ 83.333 mls/ hr Q8H IVPB Last administered on 12/26/18 13:48; Admin Dose 83.333 MLS/HR; Start 12/25/18 at 06:00 Sodium Hypochlorite (Dakin'S (Dilute )) 1 applic BID IRR Last administered on 12/25/18 21:18; Admin Dose 1 APPLIC; Start 12/25/18 at 21:00 Insulin Aspart (Novolog Insulin Pen) 10 unit WITH MEALS SC Last administered on 12/26/18 17:40; Admin Dose 10 UNIT; Start 12/26/18 at 11:30 Insulin Glargine (Lantus) 28 units DAILY@2000 SC ; Start 12/26/18 at 20:00 Cholecalciferol (Vitamin D) 2,000 unit DAILY PO Last administered on 12/26/18 13:48; Admin Dose 2,000 UNIT; Start 12/26/18 at 13:00 MERCED MERINO NP Dec 26, 2018 19:17
[2018-12-26] MEDS ORDERED: INSULIN GLARGINE [LANTus] (100 UNITS/ML) SYG SC SCH (20:00)
[2018-12-26 20:10] VITALS: BP 132/70; PULSE 97; RESP 18
[2018-12-27] MEDS: ACCU-CHEK XX SCH (02:00)
[2018-12-27 02:10] VITALS: BP 139/74; PULSE 94; RESP 18
[2018-12-27] MEDS: VANCOMYCIN HCL 1.25 GM in SOD CHLORIDE 0.9% 250 ML IVPB SCH (06:24)
[2018-12-27 08:12] VITALS: BP 137/82; PULSE 97; RESP 18
[2018-12-27] MEDS: INSULIN ASPART [NOVOLOG] 3 ML PEN SC SCH ×7 (08:39→20:41)
[2018-12-27] MEDS: SODIUM HYPOCHLORITE (1/40) 1 APPLIC BTL IRR SCH ×2 (08:40→21:00)
[2018-12-27] MEDS: CHOLECALCIFEROL 2,000 UNIT CAP PO SCH (08:40)
[2018-12-27] MEDS: CEFEPIME 2GM/50 ML (PMX) 50 ML IVPB SCH (10:37)
--- NOTE | 2018-12-27 11:36 | CONS ---
Assessment/Plan Assessment/Plan Hospital Course (Demo Recall) Patient is alert feels good, no fevers Microbiology: Wound culture growing strep agalactiae urine culture growing BEAU Antimicrobials: Vancomycin, cefepime Physical examination: Obese well-developed middle-aged man who is alert in no distress. Head atraumatic normocephalic. Neck is supple. Chest rise symmetrical breath sounds clear. Heart: S1-S2. Abdomen soft bowel sounds pr esent. Extremities: Left foot dressing intact left lower extremity edematous with slight erythema Assessment: 1. Resolving sepsis, present on admission 2. 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 Poorly controlled diabetes 4. Obesity 5. Peripheral vascular and arterial disease 6. UTI Plan: Patient remained stable, change abx to Rocephin, follow podiatry recommendations, consider vascular surgery evaluation Consultation Date/Type/Reason Admit Date/Time Dec 24, 2018 at 21:20 Initial Consult Date Type of Consult id Date/Time of Note DATE: 12/27/18 TIME: 11:35 Exam/Review of Systems Exam Vitals Vital Signs Date Temp Pulse Resp B/P (MAP) Pulse Ox O2 O2 Flow FiO2 Time Delivery Rate 12/27/18 98.7 97 18 137/82 97 Room Air 08:12 (100) Intake and Output 12/26/18 12/26/18 12/27/18 1515:00 23:00 07:00 IntakeIntake Total 1300 ml 900 ml 250 ml BalanceBalance 1300 ml 900 ml 250 ml Results Result Diagram: 12/27/18 0523 12/27/18 0523 Results 24hrs Laboratory Tests Test 12/26/18 12:13 12/26/18 17:33 12/26/18 21:18 12/27/18 05:23 Bedside Glucose 263 H 251 H 131 White Blood Count 11.5 #H Red Blood Count 4.11 L Hemoglobin 11.0 L Hematocrit 34.1 L Mean Corpuscular 83.0 Volume Mean Corpuscular 26.8 L Hemoglobin Mean Corpuscular 32.3 Hemoglobin Concent Red Cell 12.8 Distribution Width Platelet Count 200 Mean Platelet Volume 11.1 H Immature 0.600 H Granulocytes % Neutrophils % 70.3 Lymphocytes % 19.3 Monocytes % 7.6 Eosinophils % 1.6 Basophils % 0.6 Nucleated Red Blood 0.0 Cells % Immature 0.070 H Granulocytes # Neutrophils # 8.1 H Lymphocytes # 2.2 Monocytes # 0.9 Eosinophils # 0.2 Basophils # 0.1 Nucleated Red Blood 0.0 Cells # Sodium Level 137 Potassium Level 3.6 Chloride Level 102 Carbon Dioxide Level 28 Anion Gap 7 Blood Urea Nitrogen 11 Creatinine 0.52 L Est Glomerular > 60 Filtrat Rate mL/min Glucose Level 169 Calcium Level 8.7 Phosphorus Level 3.4 Magnesium Level 1.8 Test 12/27/18 08:10 Bedside Glucose 149 Medications Medication Current Medications Vancomycin HCl (Vanco Iv Per Pharmacy) VANCOMYCIN PER PHARMACY PER PROTOCOL XX ; Start 12/24/18 at 23:30 Cefepime HCl 50 ml @ 100 mls/hr Q12 IVPB Last administered on 12/27/18at 10:37; Admin Dose 100 MLS/HR; Start 12/25/18 at 09:00 IV Flush (NS 3 ml) 3 ml PER PROTOCOL IV ; Start 12/24/18 at 23:30 Ondansetron HCl (Zofran Inj) 4 mg Q6H PRN IV NAUSEA/VOMITING; Start 12/24/18 at 23:30 Acetaminophen (Tylenol Tab) 650 mg Q6H PRN PO .PAIN 1-3 OR TEMP Last administered on 12/26/18at 01:32; Admin Dose 650 MG; Start 12/24/18 at 23:30 Acetaminophen/ Hydrocodone Bitart ([place] (5/325)) 1 tab Q6H PRN PO .MOD PAIN 4- 6; Start 12/24/18 at 23:30 Morphine Sulfate (morphine) 2 mg Q4H PRN IV .SEVERE PAIN 7-10; Start 12/24/18 at 23:30 Docusate Sodium (Colace) 100 mg Q12H PRN PO .CONSTIPATION; Start 12/24/18 at 23:30 Bisacodyl (Dulcolax) 5 mg DAILY PRN PO .CONSTIPATION; Start 12/24/18 at 23:30 Enoxaparin Sodium (Lovenox) 30 mg DAILY SC Last administered on 12/25/18at 08:29; Admin Dose 30 MG; Start 12/25/18 at 09:00; Status Hold Diagnostic Test (Pha) (Accu-Chek) XX ; Start 12/25/18 at 02:00 Insulin Aspart (Novolog Insulin Pen) NOVOLOG *MILD* ALGORITHM WITH MEALS BEDTIME SC Last administered on 12/27/18 08:40; Admin Dose 1 UNIT; Start 12/25/18 at 08:00 Vancomycin HCl 1.25 gm/Sodium Chloride 250 ml @ 83.333 mls/ hr Q8H IVPB Last administered on 12/27/18 06:24; Admin Dose 83.333 MLS/HR; Start 12/25/18 at 06:00 Sodium Hypochlorite (Dakin'S (Dilute )) 1 applic BID IRR Last administered on 12/27/18 08:40; Admin Dose 1 APPLIC; Start 12/25/18 at 21:00 Insulin Aspart (Novolog Insulin Pen) 10 unit WITH MEALS SC Last administered on 12/27/18 08:39; Admin Dose 10 UNIT; Start 12/26/18 at 11:30 Insulin Glargine (Lantus) 28 units DAILY@2000 SC Last administered on 12/26/18 21:26; Admin Dose 28 UNITS; Start 12/26/18 at 20:00 Cholecalciferol (Vitamin D) 2,000 unit DAILY PO Last administered on 12/27/18 08:40; Admin Dose 2,000 UNIT; Start 12/26/18 at 13:00 MERCED MERINO NP Dec 27, 2018 11:36
[2018-12-27] MEDS: CEFTRIAXONE 2 GM/50 ML (PMX) 50 ML IVPB SCH (13:35)
[2018-12-27 14:31] VITALS: BP 141/76; PULSE 96; RESP 20
[2018-12-27] MEDS ORDERED: GLUCOSE GEL 15 GRAM TUBE PO PRN ×2 (18:30)
[2018-12-27] MEDS ORDERED: GLUCOSE GEL 15 GRAM TUBE BUCCAL PRN (18:30)
[2018-12-27] MEDS ORDERED: GLUCAGON 1 MG INJ IM PRN (18:30)
[2018-12-27] MEDS ORDERED: DEXTROSE 50% 50 ML SYRINGE IV PRN ×2 (18:30)
--- NOTE | 2018-12-27 19:25 | PN ---
Date/Time of Note Date/Time of Note DATE: 12/27/18 TIME: 19:23 Assessment/Plan VTE Prophylaxis Risk score (from Ns)>0 risk: 2 SCD applied (from Ns): Yes SCD contraindicated: low risk/ambulating Pharmacological prophylaxis: LMWH Lines/Catheters IV Catheter Type (from Nrsg): Peripheral IV Urinary Cath still in place: No Assessment/Plan Hospital Course A/P 1 Lt foot OM/ abscess, sp I&D; stable cont atb 2 Gangrene 5th toe; demarcating. 3 Dm II ooc; insulin training 4. PAD? consulted vascular 5 Anemia 6 Cough S: nonproductive cough O: vss PE no pallor/ jvd reg s1s2 no mrg ctab bs+ nt nd; no r r g no edema; lt foot c/d/i Result Diagram: 12/27/1852212/27/18522 Results 24hrs Laboratory Tests Test 12/26/18 21:18 12/27/18 05:23 12/27/18 08:10 12/27/18 12:30 Bedside Glucose 131 149 157 White Blood Count 11.5 #H Red Blood Count 4.11 L Hemoglobin 11.0 L Hematocrit 34.1 L Mean Corpuscular 83.0 Volume Mean Corpuscular 26.8 L Hemoglobin Mean Corpuscular 32.3 Hemoglobin Concent Red Cell 12.8 Distribution Width Platelet Count 200 Mean Platelet Volume 11.1 H Immature 0.600 H Granulocytes % Neutrophils % 70.3 Lymphocytes % 19.3 Monocytes % 7.6 Eosinophils % 1.6 Basophils % 0.6 Nucleated Red Blood 0.0 Cells % Immature 0.070 H Granulocytes # Neutrophils # 8.1 H Lymphocytes # 2.2 Monocytes # 0.9 Eosinophils # 0.2 Basophils # 0.1 Nucleated Red Blood 0.0 Cells # Sodium Level 137 Potassium Level 3.6 Chloride Level 102 Carbon Dioxide Level 28 Anion Gap 7 Blood Urea Nitrogen 11 Creatinine 0.52 L Est Glomerular > 60 Filtrat Rate mL/min Glucose Level 169 Calcium Level 8.7 Phosphorus Level 3.4 Magnesium Level 1.8 Test 12/27/18 17:25 Bedside Glucose 202 Exam/Review of Systems Exam Vitals Vital Signs Date Temp Pulse Resp B/P (MAP) Pulse Ox O2 O2 Flow FiO2 Time Delivery Rate 12/27/18 98.9 96 20 141/76 96 Room Air 14:31 (97) Intake and Output 12/26/18 12/26/18 12/27/18 1414:59 22:59 06:59 IntakeIntake Total 1300 ml 900 ml 250 ml BalanceBalance 1300 ml 900 ml 250 ml Results Results 24hrs Laboratory Tests Test 12/26/18 21:18 12/27/18 05:23 12/27/18 08:10 12/27/18 12:30 Bedside Glucose 131 149 157 White Blood Count 11.5 #H Red Blood Count 4.11 L Hemoglobin 11.0 L Hematocrit 34.1 L Mean Corpuscular 83.0 Volume Mean Corpuscular 26.8 L Hemoglobin Mean Corpuscular 32.3 Hemoglobin Concent Red Cell 12.8 Distribution Width Platelet Count 200 Mean Platelet Volume 11.1 H Immature 0.600 H Granulocytes % Neutrophils % 70.3 Lymphocytes % 19.3 Monocytes % 7.6 Eosinophils % 1.6 Basophils % 0.6 Nucleated Red Blood 0.0 Cells % Immature 0.070 H Granulocytes # Neutrophils # 8.1 H Lymphocytes # 2.2 Monocytes # 0.9 Eosinophils # 0.2 Basophils # 0.1 Nucleated Red Blood 0.0 Cells # Sodium Level 137 Potassium Level 3.6 Chloride Level 102 Carbon Dioxide Level 28 Anion Gap 7 Blood Urea Nitrogen 11 Creatinine 0.52 L Est Glomerular > 60 Filtrat Rate mL/min Glucose Level 169 Calcium Level 8.7 Phosphorus Level 3.4 Magnesium Level 1.8 Test 12/27/18 17:25 Bedside Glucose 202 Medications Medication Current Medications IV Flush (NS 3 ml) 3 ml PER PROTOCOL IV ; Start 12/24/18 at 23:30 Ondansetron HCl (Zofran Inj) 4 mg Q6H PRN IV NAUSEA/VOMITING; Start 12/24/18 at 23:30 Acetaminophen (Tylenol Tab) 650 mg Q6H PRN PO .PAIN 1-3 OR TEMP Last administered on 12/26/18at 01:32; Admin Dose 650 MG; Start 12/24/18 at 23:30 Acetaminophen/ Hydrocodone Bitart ([place] (5/325)) 1 tab Q6H PRN PO .MOD PAIN 4- 6; Start 12/24/18 at 23:30 Morphine Sulfate (morphine) 2 mg Q4H PRN IV .SEVERE PAIN 7-10; Start 12/24/18 at 23:30 Docusate Sodium (Colace) 100 mg Q12H PRN PO .CONSTIPATION; Start 12/24/18 at 23:30 Bisacodyl (Dulcolax) 5 mg DAILY PRN PO .CONSTIPATION; Start 12/24/18 at 23:30 Enoxaparin Sodium (Lovenox) 30 mg DAILY SC Last administered on 12/25/18at 08:29; Admin Dose 30 MG; Start 12/25/18 at 09:00; Status Hold Diagnostic Test (Pha) (Accu-Chek) 1 ea 02 XX ; Start 12/25/18 at 02:00 Insulin Aspart (Novolog Insulin Pen) NOVOLOG *MILD* ALGORITHM WITH MEALS BEDTIME SC Last administered on 12/27/18at 17:55; Admin Dose 2 UNIT; Start 12/25/18 at 08:00 Sodium Hypochlorite (Dakin'S (Dilute )) 1 applic BID IRR Last administered on 12/27/18at 08:40; Admin Dose 1 APPLIC; Start 12/25/18 at 21:00 Insulin Aspart (Novolog Insulin Pen) 10 unit WITH MEALS SC Last administered on 12/27/18at 17:54; Admin Dose 10 UNIT; Start 12/26/18 at 11:30 Cholecalciferol (Vitamin D) 2,000 unit DAILY PO Last administered on 12/27/18at 08:40; Admin Dose 2,000 UNIT; Start 12/26/18 at 13:00 Ceftriaxone Sodium 50 ml @ 100 mls/hr Q24H IVPB Last administered on 12/27/18at 13:35; Admin Dose 100 MLS/HR; Start 12/27/18 at 12:00 Insulin Glargine (Lantus) 30 units DAILY@2000 SC ; Start 12/27/18 at 20:00 Lactobacillus Acidophilus/ Rhamnosus (Culturelle) 1 cap BID PO ; Start 12/27/18 at 21:00 Aspirin (Halfprin) 81 mg DAILY PO ; Start 12/28/18 at 09:00 Miscellaneous Information 1 ea NOTE XX ; Start 12/27/18 at 18:30 Glucose (Glutose) 15 gm Q15M PRN PO DECREASED GLUCOSE; Start 12/27/18 at 18:30 Glucose (Glutose) 22.5 gm Q15M PRN PO DECREASED GLUCOSE; Start 12/27/18 at 18:30 Dextrose (D50w Syringe) 25 ml Q15M PRN IV DECREASED GLUCOSE; Start 12/27/18 at 18:30 Dextrose (D50w Syringe) 50 ml Q15M PRN IV DECREASED GLUCOSE; Start 12/27/18 at 18:30 Glucagon (Glucagen) 1 mg Q15M PRN IM DECREASED GLUCOSE; Start 12/27/18 at 18:30 Glucose (Glutose) 15 gm Q15M PRN BUCCAL DECREASED GLUCOSE; Start 12/27/18 at 18:30 LOUIE LANDIN MD Dec 27, 2018 19:25
[2018-12-27] MEDS ORDERED: GUAIFENESIN/DM 5ML CUP PO PRN (19:30)
[2018-12-27 19:37] VITALS: BP 128/67; PULSE 101; RESP 18
[2018-12-27] MEDS: LACTOBACILLUS RHAMNOSUS CAP PO SCH (20:38)
[2018-12-27] MEDS: INSULIN GLARGINE [LANTus] (100 UNITS/ML) SYG SC SCH (20:39)
[2018-12-27] MEDS ORDERED: morphine LIQ (10 MG/5 ML) CUP PO PRN (23:30)
[2018-12-28] VITALS (17 sets, daily range): BP systolic 116–169; BP diastolic 66–85; PULSE 82–110; RESP 12–24
[2018-12-28] MEDS: ACCU-CHEK XX SCH (02:05)
[2018-12-28] MEDS: INSULIN ASPART [NOVOLOG] 3 ML PEN SC SCH ×7 (07:35→21:00)
[2018-12-28] MEDS: CHOLECALCIFEROL 2,000 UNIT CAP PO SCH (08:04)
[2018-12-28] MEDS: LACTOBACILLUS RHAMNOSUS CAP PO SCH ×2 (08:05→21:07)
[2018-12-28] MEDS: SODIUM HYPOCHLORITE (1/40) 1 APPLIC BTL IRR SCH ×2 (08:09→21:00)
[2018-12-28] MEDS: ASPIRIN (EC) 81 MG TAB PO SCH (08:09)
--- NOTE | 2018-12-28 09:12 | PREAC ---
Date/Time of Note Date/Time of Note DATE: 12/28/18 TIME: 09:11 Anesthesia Eval and Record Evaluation Time Pre-Procedure Interview DATE: 12/28/18 TIME: 09:11 Age 43 Sex male NPO: 8 hrs Preoperative diagnosis diabetic left foot Planned procedure left foot debridement possible 5th toe amputation / possible aliograft, wound vac Past Medical History Past Medical History: Includes Endo: Diabetes GI: Obesity Surgery & Anesthesia Issues No known issue Meds Anticoagulation: No Beta Srinath within 24 hr: No Reason Beta Srinath not given: Pt. not on B-Srinath Reported Medications Metformin Hcl* (Metformin Hcl*) 500 Mg Tablet, 500 MG PO WITH BREAKFAST DINNE, #60 TAB 12/24/18 Glipizide* (Glipizide*) 10 Mg Tablet, 10 MG PO AC BREAKFAST, TAB 12/24/18 Discontinued Scripts Gabapentin* (Gabapentin*) 300 Mg Capsule, 300 MG PO BID, #60 CAP Prov:JORGE HERNANDEZ [employer] MANAGER 07/06/18 Current Medications IV Flush (NS 3 ml) 3 ml PER PROTOCOL IV ; Start 12/24/18 at 23:30 Ondansetron HCl (Zofran Inj) 4 mg Q6H PRN IV NAUSEA/VOMITING; Start 12/24/18 at 23:30 Acetaminophen (Tylenol Tab) 650 mg Q6H PRN PO .PAIN 1-3 OR TEMP Last administered on 12/26/18at 01:32; Admin Dose 650 MG; Start 12/24/18 at 23:30 Acetaminophen/ Hydrocodone Bitart ([place] (5/325)) 1 tab Q6H PRN PO .MOD PAIN 4- 6; Start 12/24/18 at 23:30 Docusate Sodium (Colace) 100 mg Q12H PRN PO .CONSTIPATION; Start 12/24/18 at 23:30 Bisacodyl (Dulcolax) 5 mg DAILY PRN PO .CONSTIPATION; Start 12/24/18 at 23:30 Enoxaparin Sodium (Lovenox) 30 mg DAILY SC Last administered on 12/25/18at 08:29; Admin Dose 30 MG; Start 12/25/18 at 09:00; Status Hold Diagnostic Test (Pha) (Accu-Chek) 1 ea 02 XX Last administered on 12/28/18at 02:05; Admin Dose 1 EA; Start 12/25/18 at 02:00 Insulin Aspart (Novolog Insulin Pen) NOVOLOG *MILD* ALGORITHM WITH MEALS BEDTIME SC Last administered on 12/28/18 08:06; Admin Dose 1 UNIT; Start 12/25/18 at 08:00 Sodium Hypochlorite (Dakin'S (Dilute )) 1 applic BID IRR Last administered on 12/28/18 08:09; Admin Dose 1 APPLIC; Start 12/25/18 at 21:00 Insulin Aspart (Novolog Insulin Pen) 10 unit WITH MEALS SC Last administered on 12/27/18at 17:54; Admin Dose 10 UNIT; Start 12/26/18 at 11:30 Cholecalciferol (Vitamin D) 2,000 unit DAILY PO Last administered on 12/28/18 08:04; Admin Dose 2,000 UNIT; Start 12/26/18 at 13:00 Ceftriaxone Sodium 50 ml @ 100 mls/hr Q24H IVPB Last administered on 12/27/18 13:35; Admin Dose 100 MLS/HR; Start 12/27/18 at 12:00 Insulin Glargine (Lantus) 30 units DAILY@2000 SC Last administered on 12/27/18at 20:39; Admin Dose 30 UNITS; Start 12/27/18 at 20:00 Lactobacillus Acidophilus/ Rhamnosus (Culturelle) 1 cap BID PO Last administered on 12/28/18at 08:05; Admin Dose 1 CAP; Start 12/27/18 at 21:00 Aspirin (Halfprin) 81 mg DAILY PO Last administered on 12/28/18 08:09; Admin Dose 81 MG; Start 12/28/18 at 09:00 Miscellaneous Information 1 ea NOTE XX ; Start 12/27/18 at 18:30 Glucose (Glutose) 15 gm Q15M PRN PO DECREASED GLUCOSE; Start 12/27/18 at 18:30 Glucose (Glutose) 22.5 gm Q15M PRN PO DECREASED GLUCOSE; Start 12/27/18 at 18 :30 Dextrose (D50w Syringe) 25 ml Q15M PRN IV DECREASED GLUCOSE; Start 12/27/18 at 18:30 Dextrose (D50w Syringe) 50 ml Q15M PRN IV DECREASED GLUCOSE; Start 12/27/18 at 18:30 Glucagon (Glucagen) 1 mg Q15M PRN IM DECREASED GLUCOSE; Start 12/27/18 at 18:30 Glucose (Glutose) 15 gm Q15M PRN BUCCAL DECREASED GLUCOSE; Start 12/27/18 at 18:30 Guaifenesin/ Dextromethorphan (Robitussin Dm Liquid Cup) 10 ml Q4H PRN PO COUGH; Start 12/27/18 at 19:30 Morphine Sulfate (morphine) 6 mg Q4H PRN PO SEVERE PAIN LEVEL 7-10; Start 12/27/18 at 23:30 Meds reviewed: Yes Allergies Coded Allergies: No Known Allergy (Unverified , 12/24/18) Allergies Reviewed: Yes Labs/Studies Labs Reviewed: Reviewed by anesthesiologist Result Diagram: 12/28/18 0523 12/28/18521 Laboratory Tests 12/28/18 05:22 12/28/18 05:23 test: N/A Studies: ECG (ST), CXR (No evidence for active cardiopulmonary disease.) Pre-procedure Exam Last vitals Vital Signs Date Temp Pulse Resp B/P (MAP) Pulse Ox O2 O2 Flow FiO2 Time Delivery Rate 12/28/18 98.6 82 20 116/75 96 08:00 (89) 12/27/18 Room Air 14:31 Airway: Adequate mouth opening Mallampati: Mallampati I Teeth: Normal Lung: Normal Heart: Normal ASA Physical Status ASA physical status: 3 Emergency: None Planned Anesthetic General/MAC: LMA Pre-operative Attestations Prior to commencing anesthesia and surgery, the patient was re-evaluated, there was verification of: *The patient's identity *The results of appropriate recent lab work and preoperative vital signs *The above evaluation not changing prior to induction *Anesthetic plan, risk benefits, alternative and complications discussed with patient/family; questions answered; patient/family understands, accepts and wishes to proceed. JULIO ALY Dec 28, 2018 09:12
--- NOTE | 2018-12-28 10:58 | CONS ---
Assessment/Plan Assessment/Plan Hospital Course (Demo Recall) All noted, no acute events, looks comfortable, Tm 99.5 Microbiology: Wound culture growing strep agalactiae urine culture growing BEAU Antimicrobials: Rocephin Physical examination: Obese well-developed middle-aged man who is alert in no distress. Head atraumatic normocephalic. Neck is supple. Chest rise symmetrical breath sounds clear. Heart: S1-S2. Abdomen soft bowel sounds present. Extremities: Left foot dressing intact left lower extremity edematous with slight erythema Assessment: 1. Resolving sepsis, present on admission 2. 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 Poorly controlled diabetes 4. Obesity 5. Peripheral vascular and arterial disease 6. UTI Plan: Patient remained stable, continue abx, management per podiatry Consultation Date/Type/Reason Admit Date/Time Dec 24, 2018 at 21:20 Initial Consult Date Type of Consult id Date/Time of Note DATE: 12/28/18 TIME: 10:57 Exam/Review of Systems Exam Vitals Vital Signs Date Temp Pulse Resp B/P (MAP) Pulse Ox O2 O2 Flow FiO2 Time Delivery Rate 12/28/18 98.6 82 20 116/75 96 08:00 (89) 12/27/18 Room Air 14:31 Intake and Output 12/27/18 12/27/18 12/28/18 1515:00 23:00 07:00 IntakeIntake Total 1120 ml 410 ml OutputOutput Total 600 ml 400 ml BalanceBalance 520 ml 10 ml Results Result Diagram: 12/28/1852212/28/18521 Results 24hrs Laboratory Tests Test 12/27/18 12:30 12/27/18 17:25 12/27/18 20:37 12/28/18 02:04 Bedside Glucose 157 202 228 H 150 Test 12/28/18 05:22 12/28/18 05:23 12/28/18 08:01 Prothrombin Time 13.9 Prothrombin Time 1.1 Ratio INR International 1.06 Normalized Ratio Sodium Level 139 Potassium Level 3.4 L Chloride Level 101 Carbon Dioxide Level 30 Anion Gap 8 Blood Urea Nitrogen 10 Creatinine 0.45 L Est Glomerular > 60 Filtrat Rate mL/min Glucose Level 148 Calcium Level 8.9 White Blood Count 11.7 H Red Blood Count 3.94 L Hemoglobin 10.7 L Hematocrit 32.5 L Mean Corpuscular 82.5 Volume Mean Corpuscular 27.2 L Hemoglobin Mean Corpuscular 32.9 Hemoglobin Concent Red Cell 12.9 Distribution Width Platelet Count 228 Mean Platelet Volume 11.1 H Immature 0.600 H Granulocytes % Neutrophils % 62.7 Lymphocytes % 25.5 Monocytes % 8.3 Eosinophils % 2.2 Basophils % 0.7 Nucleated Red Blood 0.0 Cells % Immature 0.070 H Granulocytes # Neutrophils # 7.3 Lymphocytes # 3.0 H Monocytes # 1.0 H Eosinophils # 0.3 Basophils # 0.1 Nucleated Red Blood 0.0 Cells # Bedside Glucose 151 Medications Medication Current Medications IV Flush (NS 3 ml) 3 ml PER PROTOCOL IV ; Start 12/24/18 at 23:30 Ondansetron HCl (Zofran Inj) 4 mg Q6H PRN IV NAUSEA/VOMITING; Start 12/24/18 at 23:30 Acetaminophen (Tylenol Tab) 650 mg Q6H PRN PO .PAIN 1-3 OR TEMP Last administered on 12/26/18at 01:32; Admin Dose 650 MG; Start 12/24/18 at 23:30 Acetaminophen/ Hydrocodone Bitart ([place] (5/325)) 1 tab Q6H PRN PO .MOD PAIN 4- 6; Start 12/24/18 at 23:30 Docusate Sodium (Colace) 100 mg Q12H PRN PO .CONSTIPATION; Start 12/24/18 at 23:30 Bisacodyl (Dulcolax) 5 mg DAILY PRN PO .CONSTIPATION; Start 12/24/18 at 23:30 Enoxaparin Sodium (Lovenox) 30 mg DAILY SC Last administered on 12/25/18at 08:29; Admin Dose 30 MG; Start 12/25/18 at 09:00; Status Hold Diagnostic Test (Pha) (Accu-Chek) 1 ea 02 XX Last administered on 12/28/18at 02:05; Admin Dose 1 EA; Start 12/25/18 at 02:00 Insulin Aspart (Novolog Insulin Pen) NOVOLOG *MILD* ALGORITHM WITH MEALS BEDTIME SC Last administered on 12/28/18at 08:06; Admin Dose 1 UNIT; Start 12/25/18 at 08:00 Sodium Hypochlorite (Dakin'S (Dilute )) 1 applic BID IRR Last administered on 12/28/18at 08:09; Admin Dose 1 APPLIC; Start 12/25/18 at 21:00 Insulin Aspart (Novolog Insulin Pen) 10 unit WITH MEALS SC Last administered on 12/27/18at 17:54; Admin Dose 10 UNIT; Start 12/26/18 at 11:30 Cholecalciferol (Vitamin D) 2,000 unit DAILY PO Last administered on 12/28/18at 08:04; Admin Dose 2,000 UNIT; Start 12/26/18 at 13:00 Ceftriaxone Sodium 50 ml @ 100 mls/hr Q24H IVPB Last administered on 12/27/18at 13:35; Admin Dose 100 MLS/HR; Start 12/27/18 at 12:00 Insulin Glargine (Lantus) 30 units DAILY@2000 SC Last administered on 12/27/18at 20:39; Admin Dose 30 UNITS; Start 12/27/18 at 20:00 Lactobacillus Acidophilus/ Rhamnosus (Culturelle) 1 cap BID PO Last administered on 12/28/18at 08:05; Admin Dose 1 CAP; Start 12/27/18 at 21:00 Aspirin (Halfprin) 81 mg DAILY PO Last administered on 12/28/18 08:09; Admin Dose 81 MG; Start 12/28/18 at 09:00 Miscellaneous Information 1 ea NOTE XX ; Start 12/27/18 at 18:30 Glucose (Glutose) 15 gm Q15M PRN PO DECREASED GLUCOSE; Start 12/27/18 at 18:30 Glucose (Glutose) 22.5 gm Q15M PRN PO DECREASED GLUCOSE; Start 12/27/18 at 18:30 Dextrose (D50w Syringe) 25 ml Q15M PRN IV DECREASED GLUCOSE; Start 12/27/18 at 18:30 Dextrose (D50w Syringe) 50 ml Q15M PRN IV DECREASED GLUCOSE; Start 12/27/18 at 18:30 Glucagon (Glucagen) 1 mg Q15M PRN IM DECREASED GLUCOSE; Start 12/27/18 at 18:30 Glucose (Glutose) 15 gm Q15M PRN BUCCAL DECREASED GLUCOSE; Start 12/27/18 at 18:30 Guaifenesin/ Dextromethorphan (Robitussin Dm Liquid Cup) 10 ml Q4H PRN PO COUGH; Start 12/27/18 at 19:30 Morphine Sulfate (morphine) 6 mg Q4H PRN PO SEVERE PAIN LEVEL 7-10; Start 12/27/18 at 23:30 MERCED MERINO NP Dec 28, 2018 10:58
[2018-12-28] MEDS ORDERED: LIDOCAINE 2% (SDV) 5 ML INJ ONE (11:03)
[2018-12-28] MEDS ORDERED: PROPOFOL 20 ML ONE (11:04)
[2018-12-28] MEDS ORDERED: FENTAnyl 50 MCG/ML VIAL ONE (11:04)
[2018-12-28] MEDS ORDERED: MIDAZOLAM 1 MG/ML 2 ML INJ ONE (11:04)
[2018-12-28] MEDS ORDERED: FAMOTIDINE 20 MG INJ ONE (11:05)
[2018-12-28] MEDS ORDERED: ONDANSETRON 4 MG INJ ONE (11:05)
[2018-12-28] MEDS ORDERED: METOCLOPRAMIDE 10 MG INJ ONE (11:05)
--- NOTE | 2018-12-28 11:18 | PN ---
Date/Time of Note Date/Time of Note DATE: 12/28/18 TIME: 11:16 Assessment/Plan VTE Prophylaxis Risk score (from Ns)>0 risk: 3 SCD applied (from Ns): Yes Pharmacological prophylaxis: NA/contraindicated, LMWH Pharm contraindication: surgical contra Lines/Catheters IV Catheter Type (from [facility] Saline Lock Urinary Cath still in place: No Assessment/Plan Hospital Course A/P 1 Lt foot OM/ abscess, sp I&D; stable cont atb; picc/ ivs vs po's? 2 Gangrene 5th toe; demarcating. for I&D today 3 Dm II ooc; insulin training 4. PAD? consulted vascular 5 Anemia 6 Cough S: 12/27 nonproductive cough 12/28 no events overnight. Patient in OR O: vss PE -Deferred patient in OR Result Diagram: 12/28/1852212/28/18521 Results 24hrs Laboratory Tests Test 12/27/18 12:30 12/27/18 17:25 12/27/18 20:37 12/28/18 02:04 Bedside Glucose 157 202 228 H 150 Test 12/28/18 05:22 12/28/18 05:23 12/28/18 08:01 Prothrombin Time 13.9 Prothrombin Time 1.1 Ratio INR International 1.06 Normalized Ratio Sodium Level 139 Potassium Level 3.4 L Chloride Level 101 Carbon Dioxide Level 30 Anion Gap 8 Blood Urea Nitrogen 10 Creatinine 0.45 L Est Glomerular > 60 Filtrat Rate mL/min Glucose Level 148 Calcium Level 8.9 White Blood Count 11.7 H Red Blood Count 3.94 L Hemoglobin 10.7 L Hematocrit 32.5 L Mean Corpuscular 82.5 Volume Mean Corpuscular 27.2 L Hemoglobin Mean Corpuscular 32.9 Hemoglobin Concent Red Cell 12.9 Distribution Width Platelet Count 228 Mean Platelet Volume 11.1 H Immature 0.600 H Granulocytes % Neutrophils % 62.7 Lymphocytes % 25.5 Monocytes % 8.3 Eosinophils % 2.2 Basophils % 0.7 Nucleated Red Blood 0.0 Cells % Immature 0.070 H Granulocytes # Neutrophils # 7.3 Lymphocytes # 3.0 H Monocytes # 1.0 H Eosinophils # 0.3 Basophils # 0.1 Nucleated Red Blood 0.0 Cells # Bedside Glucose 151 Exam/Review of Systems Exam Vitals Vital Signs Date Temp Pulse Resp B/P (MAP) Pulse Ox O2 O2 Flow FiO2 Time Delivery Rate 12/28/18 98.6 82 20 116/75 96 08:00 (89) 12/27/18 Room Air 14:31 Intake and Output 12/27/18 12/27/18 12/28/18 1515:00 23:00 07:00 IntakeIntake Total 1120 ml 410 ml OutputOutput Total 600 ml 400 ml BalanceBalance 520 ml 10 ml Results Results 24hrs Laboratory Tests Test 12/27/18 12:30 12/27/18 17:25 12/27/18 20:37 12/28/18 02:04 Bedside Glucose 157 202 228 H 150 Test 12/28/18 05:22 12/28/18 05:23 12/28/18 08:01 Prothrombin Time 13.9 Prothrombin Time 1.1 Ratio INR International 1.06 Normalized Ratio Sodium Level 139 Potassium Level 3.4 L Chloride Level 101 Carbon Dioxide Level 30 Anion Gap 8 Blood Urea Nitrogen 10 Creatinine 0.45 L Est Glomerular > 60 Filtrat Rate mL/min Glucose Level 148 Calcium Level 8.9 White Blood Count 11.7 H Red Blood Count 3.94 L Hemoglobin 10.7 L Hematocrit 32.5 L Mean Corpuscular 82.5 Volume Mean Corpuscular 27.2 L Hemoglobin Mean Corpuscular 32.9 Hemoglobin Concent Red Cell 12.9 Distribution Width Platelet Count 228 Mean Platelet Volume 11.1 H Immature 0.600 H Granulocytes % Neutrophils % 62.7 Lymphocytes % 25.5 Monocytes % 8.3 Eosinophils % 2.2 Basophils % 0.7 Nucleated Red Blood 0.0 Cells % Immature 0.070 H Granulocytes # Neutrophils # 7.3 Lymphocytes # 3.0 H Monocytes # 1.0 H Eosinophils # 0.3 Basophils # 0.1 Nucleated Red Blood 0.0 Cells # Bedside Glucose 151 Medications Medication Current Medications IV Flush (NS 3 ml) 3 ml PER PROTOCOL IV ; Start 12/24/18 at 23:30 Ondansetron HCl (Zofran Inj) 4 mg Q6H PRN IV NAUSEA/VOMITING; Start 12/24/18 at 23:30 Acetaminophen (Tylenol Tab) 650 mg Q6H PRN PO .PAIN 1-3 OR TEMP Last administered on 12/26/18at 01:32; Admin Dose 650 MG; Start 12/24/18 at 23:30 Acetaminophen/ Hydrocodone Bitart ([place] (5/325)) 1 tab Q6H PRN PO .MOD PAIN 4- 6; Start 12/24/18 at 23:30 Docusate Sodium (Colace) 100 mg Q12H PRN PO .CONSTIPATION; Start 12/24/18 at 23:30 Bisacodyl (Dulcolax) 5 mg DAILY PRN PO .CONSTIPATION; Start 12/24/18 at 23:30 Enoxaparin Sodium (Lovenox) 30 mg DAILY SC Last administered on 12/25/18 08:29; Admin Dose 30 MG; Start 12/25/18 at 09:00; Status Hold Diagnostic Test (Pha) (Accu-Chek) 1 ea 02 XX Last administered on 12/28/18 02:05; Admin Dose 1 EA; Start 12/25/18 at 02:00 Insulin Aspart (Novolog Insulin Pen) NOVOLOG *MILD* ALGORITHM WITH MEALS BEDTIME SC Last administered on 12/28/18 08:06; Admin Dose 1 UNIT; Start 12/25/18 at 08:00 Sodium Hypochlorite (Dakin'S (Dilute /40)) 1 applic BID IRR Last administered on 12/28/18 08:09; Admin Dose 1 APPLIC; Start 12/25/18 at 21:00 Insulin Aspart (Novolog Insulin Pen) 10 unit WITH MEALS SC Last administered on 12/27/18 17:54; Admin Dose 10 UNIT; Start 12/26/18 at 11:30 Cholecalciferol (Vitamin D) 2,000 unit DAILY PO Last administered on 12/28/18 08:04; Admin Dose 2,000 UNIT; Start 12/26/18 at 13:00 Ceftriaxone Sodium 50 ml @ 100 mls/hr Q24H IVPB Last administered on 12/27/18 13:35; Admin Dose 100 MLS/HR; Start 12/27/18 at 12:00 Insulin Glargine (Lantus) 30 units DAILY@2000 SC Last administered on 12/27/18 20:39; Admin Dose 30 UNITS; Start 12/27/18 at 20:00 Lactobacillus Acidophilus/ Rhamnosus (Culturelle) 1 cap BID PO Last administered on 12/28/18 08:05; Admin Dose 1 CAP; Start 12/27/18 at 21:00 Aspirin (Halfprin) 81 mg DAILY PO Last administered on 12/28/18at 08:09; Admin Dose 81 MG; Start 12/28/18 at 09:00 Miscellaneous Information 1 ea NOTE XX ; Start 12/27/18 at 18:30 Glucose (Glutose) 15 gm Q15M PRN PO DECREASED GLUCOSE; Start 12/27/18 at 18:30 Glucose (Glutose) 22.5 gm Q15M PRN PO DECREASED GLUCOSE; Start 12/27/18 at 18:30 Dextrose (D50w Syringe) 25 ml Q15M PRN IV DECREASED GLUCOSE; Start 12/27/18 at 18:30 Dextrose (D50w Syringe) 50 ml Q15M PRN IV DECREASED GLUCOSE; Start 12/27/18 at 18:30 Glucagon (Glucagen) 1 mg Q15M PRN IM DECREASED GLUCOSE; Start 12/27/18 at 18:30 Glucose (Glutose) 15 gm Q15M PRN BUCCAL DECREASED GLUCOSE; Start 12/27/18 at 18:30 Guaifenesin/ Dextromethorphan (Robitussin Dm Liquid Cup) 10 ml Q4H PRN PO COUGH; Start 12/27/18 at 19:30 Morphine Sulfate (morphine) 6 mg Q4H PRN PO SEVERE PAIN LEVEL 7-10; Start 12/27/18 at 23:30 LOUIE LANDIN MD Dec 28, 2018 11:18
[2018-12-28] MEDS ORDERED: LIDOCAINE 1% (MPF) 30 ML INJ ONE (11:53)
[2018-12-28] MEDS ORDERED: ONDANSETRON 4 MG INJ IV PRN (13:00)
[2018-12-28] MEDS ORDERED: MEPERIDINE 25 MG INJ IV PRN (13:00)
[2018-12-28] MEDS ORDERED: OXYCODONE/ACETAMINOPHEN (5/325) TAB PO PRN ×2 (13:00)
[2018-12-28] MEDS ORDERED: HYDROmorphONE 1 MG/5 ML IV SYRINGE IV PRN ×2 (13:00)
--- NOTE | 2018-12-28 13:20 | HPN ---
Date/Time of Note Date/Time of Note DATE: 12/28/18 TIME: 13:20 Interval H&P Admission Note Pt. seen H&P reviewed: No system changes VERONICA BARRIOS DPM Dec 28, 2018 13:20
--- NOTE | 2018-12-28 13:26 | SIPON ---
Date/Time of Note Date/Time of Note DATE: 12/28/18 TIME: 13:26 Operative Report Preoperative Diagnosis Left foot diabetic ulcer Left foot cellulitis Left foot osteomyelitis DM2 with peripheral neuropathy Postoperative Diagnosis Left foot diabetic ulcer Left foot cellulitis Left foot osteomyelitis DM2 with peripheral neuropathy Operation/Procedure Performed Left foot partial 5th ray resection Application of skin allograft left foot Application of wound VAC left foot Surgeon Sukh Barrios DPM general assistant none Anesthesia: general Estimated blood loss: 10 - 50 ml's Transfusion Required none Specimen Left partial 5th ray resection Left foot wound Culture Grafts/Implants Integra skin allograft Complications none SUKH BARRIOS DPM Dec 28, 2018 13:26
--- NOTE | 2018-12-28 13:27 | OPR ---
Date/Time of Note Date/Time of Note DATE: 12/28/18 TIME: 13:27 Operative Report Preoperative Diagnosis Left foot diabetic ulcer Left foot cellulitis Left foot osteomyelitis DM2 with peripheral neuropathy Postoperative Diagnosis Left foot diabetic ulcer Left foot cellulitis Left foot osteomyelitis DM2 with peripheral neuropathy Operation/Procedure Performed Left foot partial 5th ray resection Application of skin allograft left foot Application of wound VAC left foot Surgeon see signature line [employer] Service Attendant none Anesthesia Type: general Estimated Blood Loss: 10 - 50 ml's Transfusion none Specimen Left partial 5th ray resection Left foot wound Culture Grafts/Implants Integra skin allograft Complications none Indications 43 y/o M patient with worsening left foot diabetic ulcer with underlying osteomyelitis and infection. Patient had attempted conservative care but was unable to improve. Patient is amenable to surgical intervention. All of patient's questions and concerns were addressed. No promises or guarantees are given. Procedure Description Patient was brought into the OR and placed on the OR table in the supine position. The left lower extremity was scrubbed, prepped, draped in the usual aseptic manner. A formal time out was conducted. Attention was directed to the left foot. Gangrene was appreciated to the left 5th digit with purulent drainage noted to plantar ulceration site and dorsal ulceration site. Approximately 4mL of purulence was appreciated. Upon further exploration of the ulcer site there was purulence noted from 5th MPJ site. The head of the 5th metatarsal appeared non viable with destruction noted to cortex. A partial 5th ray resection was performed using a sagittal saw on power. Non- viable and necrotic soft tissue structures were removed using a pickup/scissors. The partial 5th ray was sent for pathology. Electrocauterization was used to achieve hemostasis. There was fat necrosis and an additional 3-4mL of seropurulent drainage noted to the medial and proximal aspect of the wound site. Antibiotic infused saline was used with copious amounts of pulse lavage to the ulceration site. Upon inspection of post lavage there was no further purulence or necrotic tissue that was appreciated. An integra skin allograft was applied and secured with 3-0 nylon sutures. A wound VAC with 125mmHg low continuous therapy was applied to the surgical site with a successful seal. 4x4 gauze, abd pads, kerlix and dry sterile dressings were applied to the left foot Patient was transferred to the PACU with vital signs stable and neurovascular status intact. VERONICA BARRIOS DPM Dec 28, 2018 13:27
--- NOTE | 2018-12-28 13:58 | PAC ---
Date/Time of Note Date/Time of Note DATE: 12/28/18 TIME: 13:57 Post-Anesthesia Notes Post-Anesthesia Note Last documented vital signs BP 116/65, Spo2 99% RR 16 HR 90 Temp 97.4 Vital Signs Date Temp Pulse Resp B/P (MAP) Pulse Ox O2 O2 Flow FiO2 Time Delivery Rate 12/28/18 98.6 82 20 116/75 96 08:00 (89) 12/27/18 Room Air 14:31 Activity: WNL Respiratory function: WNL Cardiovascular function: WNL Mental status: Baseline Pain reasonably controlled: Yes Hydration appropriate: Yes Nausea/Vomiting absent: Yes CHELLY WATSON Dec 28, 2018 13:58
[2018-12-28] MEDS: CEFTRIAXONE 2 GM/50 ML (PMX) 50 ML IVPB SCH (16:12)
[2018-12-28] MEDS: INSULIN GLARGINE [LANTus] (100 UNITS/ML) SYG SC SCH (21:07)
[2018-12-29] MEDS: ACCU-CHEK XX SCH (02:00)
[2018-12-29 02:12] VITALS: BP 133/72; PULSE 103; RESP 20
[2018-12-29] MEDS: INSULIN ASPART [NOVOLOG] 3 ML PEN SC SCH ×7 (07:54→21:00)
[2018-12-29] MEDS: SODIUM HYPOCHLORITE (1/40) 1 APPLIC BTL IRR SCH ×2 (07:57→21:00)
[2018-12-29] MEDS: LACTOBACILLUS RHAMNOSUS CAP PO SCH ×2 (07:59→21:12)
[2018-12-29] MEDS: ASPIRIN (EC) 81 MG TAB PO SCH (07:59)
[2018-12-29] MEDS: CHOLECALCIFEROL 2,000 UNIT CAP PO SCH (07:59)
[2018-12-29 08:11] VITALS: BP 128/68; PULSE 91; RESP 18
--- NOTE | 2018-12-29 12:07 | CONS ---
Assessment/Plan Assessment/Plan Hospital Course (Demo Recall) Alert, feels good, no fevers, looks comfortable Microbiology: Wound culture growing strep agalactiae urine culture growing BEAU Antimicrobials: Rocephin Physical examination: Obese well-developed middle-aged man who is alert in no distress. Head atraumatic normocephalic. Neck is supple. Chest rise symmetrical breath sounds clear. Heart: S1-S2. Abdomen soft bowel sounds prese nt. Extremities: Left foot dressing intact left lower extremity edematous with slight erythema Assessment: 1. Resolving sepsis, present on admission 2. 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 Poorly controlled diabetes 4. Obesity 5. Peripheral vascular and arterial disease 6. UTI Plan: Patient remained stable, continue abx to complete 6 weeks, wound management per podiatry, consider PICC line placement Consultation Date/Type/Reason Admit Date/Time Dec 24, 2018 at 21:20 Initial Consult Date Type of Consult id Date/Time of Note DATE: 12/29/18 TIME: 12:06 Exam/Review of Systems Exam Vitals Vital Signs Date Temp Pulse Resp B/P (MAP) Pulse Ox O2 O2 Flow FiO2 Time Delivery Rate 12/29/18 98.4 91 18 128/68 97 Room Air 08:11 (88) 12/28/18 3.0 14:11 Intake and Output 12/28/18 12/28/18 12/29/18 1515:00 23:00 07:00 IntakeIntake Total 800 ml 550 ml OutputOutput Total 50 ml 750 ml BalanceBalance 750 ml -200 ml Results Result Diagram: 12/29/18 0429 12/29/18 0529 Results 24hrs Laboratory Tests Test 12/28/18 17:25 12/28/18 21:05 12/29/18 04:29 12/29/18 05:29 Bedside Glucose 140 175 White Blood Count 11.1 H Red Blood Count 3.78 L Hemoglobin 10.1 L Hematocrit 31.5 L Mean Corpuscular 83.3 Volume Mean Corpuscular 26.7 L Hemoglobin Mean Corpuscular 32.1 Hemoglobin Concent Red Cell 13.1 Distribution Width Platelet Count 233 Mean Platelet Volume 11.0 H Immature 0.600 H Granulocytes % Neutrophils % 68.4 Lymphocytes % 21.4 Monocytes % 7.0 Eosinophils % 2.0 Basophils % 0.6 Nucleated Red Blood 0.0 Cells % Immature 0.070 H Granulocytes # Neutrophils # 7.6 H Lymphocytes # 2.4 Monocytes # 0.8 Eosinophils # 0.2 Basophils # 0.1 Nucleated Red Blood 0.0 Cells # Sodium Level 137 Potassium Level 3.2 L Chloride Level 100 Carbon Dioxide Level 30 Anion Gap 7 Blood Urea Nitrogen 8 Creatinine 0.45 L Est Glomerular > 60 Filtrat Rate mL/min Glucose Level 134 Calcium Level 8.9 Test 12/29/18 07:52 Bedside Glucose 140 Medications Medication Current Medications IV Flush (NS 3 ml) 3 ml PER PROTOCOL IV ; Start 12/24/18 at 23:30 Ondansetron HCl (Zofran Inj) 4 mg Q6H PRN IV NAUSEA/VOMITING; Start 12/24/18 at 23:30 Acetaminophen (Tylenol Tab) 650 mg Q6H PRN PO .PAIN 1-3 OR TEMP Last administered on 12/26/18at 01:32; Admin Dose 650 MG; Start 12/24/18 at 23:30 Acetaminophen/ Hydrocodone Bitart ([place] (5/325)) 1 tab Q6H PRN PO .MOD PAIN 4- 6; Start 12/24/18 at 23:30 Docusate Sodium (Colace) 100 mg Q12H PRN PO .CONSTIPATION; Start 12/24/18 at 23:30 Bisacodyl (Dulcolax) 5 mg DAILY PRN PO .CONSTIPATION; Start 12/24/18 at 23:30 Enoxaparin Sodium (Lovenox) 30 mg DAILY SC Last administered on 12/25/18at 08:29; Admin Dose 30 MG; Start 12/25/18 at 09:00; Status Hold Diagnostic Test (Pha) (Accu-Chek) 1 ea 02 XX Last administered on 12/28/18 02:05; Admin Dose 1 EA; Start 12/25/18 at 02:00 Insulin Aspart (Novolog Insulin Pen) NOVOLOG *MILD* ALGORITHM WITH MEALS BEDTIME SC Last administered on 12/28/18 08:06; Admin Dose 1 UNIT; Start 12/25/18 at 08:00 Sodium Hypochlorite (Dakin'S (Dilute )) 1 applic BID IRR Last administered on 12/28/18 08:09; Admin Dose 1 APPLIC; Start 12/25/18 at 21:00 Insulin Aspart (Novolog Insulin Pen) 10 unit WITH MEALS SC Last administered on 12/29/18 07:55; Admin Dose 10 UNIT; Start 12/26/18 at 11:30 Cholecalciferol (Vitamin D) 2,000 unit DAILY PO Last administered on 12/29/18 07:59; Admin Dose 2,000 UNIT; Start 12/26/18 at 13:00 Ceftriaxone Sodium 50 ml @ 100 mls/hr Q24H IVPB Last administered on 12/28/18 16:12; Admin Dose 100 MLS/HR; Start 12/27/18 at 12:00 Insulin Glargine (Lantus) 30 units DAILY@2000 SC Last administered on 12/28/18 21:07; Admin Dose 30 UNITS; Start 12/27/18 at 20:00 Lactobacillus Acidophilus/ Rhamnosus (Culturelle) 1 cap BID PO Last administered on 12/29/18 07:59; Admin Dose 1 CAP; Start 12/27/18 at 21:00 Aspirin (Halfprin) 81 mg DAILY PO Last administered on 12/29/18 07:59; Admin Dose 81 MG; Start 12/28/18 at 09:00 Miscellaneous Information 1 ea NOTE XX ; Start 12/27/18 at 18:30 Glucose (Glutose) 15 gm Q15M PRN PO DECREASED GLUCOSE; Start 12/27/18 at 18:30 Glucose (Glutose) 22.5 gm Q15M PRN PO DECREASED GLUCOSE; Start 12/27/18 at 18:30 Dextrose (D50w Syringe) 25 ml Q15M PRN IV DECREASED GLUCOSE; Start 12/27/18 at 18:30 Dextrose (D50w Syringe) 50 ml Q15M PRN IV DECREASED GLUCOSE; Start 12/27/18 at 18:30 Glucagon (Glucagen) 1 mg Q15M PRN IM DECREASED GLUCOSE; Start 12/27/18 at 18:30 Glucose (Glutose) 15 gm Q15M PRN BUCCAL DECREASED GLUCOSE; Start 12/27/18 at 18:30 Guaifenesin/ Dextromethorphan (Robitussin Dm Liquid Cup) 10 ml Q4H PRN PO COUGH; Start 12/27/18 at 19:30 Morphine Sulfate (morphine) 6 mg Q4H PRN PO SEVERE PAIN LEVEL 7-10; Start 12/27/18 at 23:30 MERCED MERINO NP Dec 29, 2018 12:07
[2018-12-29] MEDS: CEFTRIAXONE 2 GM/50 ML (PMX) 50 ML IVPB SCH (12:30)
[2018-12-29 15:01] VITALS: BP 122/76; PULSE 95; RESP 18
--- NOTE | 2018-12-29 15:33 | CONS ---
DATE OF ADMISSION: 12/24/2018 DATE OF CONSULTATION: 12/25/2018 REFERRING PHYSICIAN: Dr. Hieu Landin. REASON FOR CONSULTATION: Left diabetic foot infection. HISTORY OF PRESENT ILLNESS: This is a 43-year-old diabetic normotensive gentleman. He was admitted on 12/25/2018 with foot infection. He said about 2 weeks ago he developed a blister on the left 5th toe region and he unroofed it and kind of put some Purel1 on it and it seemed to be getting better an d then he developed a necrotizing infection in the fifth toe. He came in. He has been on IV antibio tics. Dr. Barrios took him yesterday. Actually I tried to stop by yesterday to see him, but Dr. Carly heart had him in the OR to amputate a part of the fifth toe and debrided it. He has put a VAC on the wound now. He had an x-ray that showed no osteomyelitis. He had some arterial studies done whic h were ordered several days ago, which showed tibial disease, although he has got triphasic PT signal . It is monophasic dorsalis pedis signals bilaterally. There does not appear to be any more proxima l obstruction. He has got artificially elevated ankle brachial indices. He also had a venous duplex scan done which showed no DVT in the left lower extremity, although he does have some edema. PAST MEDICAL HISTORY: Significant for diabetes for about 9 years. He is moderately obese. His diab etes has been poorly controlled he admits. He has urinary tract infection and a diabetic foot wound. He has never had any wounds in the feet before and really no other complications from the diabetes i n the past. MEDICATIONS: Currently consist of: 1. Dilaudid. 2. Percocet. 3. Zofran 4. Aspirin. 5. Morphine. 6. Culturelle. 7. Lantus. 8. Robitussin. 9. Ceftriaxone. 10. Insulin. 11. Lovenox subcu. ALLERGIES: No known drug allergies. SOCIAL HISTORY: He is a nonsmoker. He does not drink or use any illicit drugs. He works in the [employer] for a medical [employer]. FAMILY HISTORY: There is a fairly strong family history of diabetes in the family. He has several f amily members who are diabetic. REVIEW OF SYSTEMS: He currently denies any symptoms. He has no chest pain, no shortness of breath, no nausea, vomiting, or diarrhea. No fevers, no chills, no recent weight gain or weight loss. He do es have neuropathy in his feet. He has very limited sensation in the toes. PHYSICAL EXAMINATION: GENERAL: He is a young middle-aged gentleman. He speaks Bengali fluently. He is in no di stress. He is a good historian. VITAL SIGNS: He has been afebrile. His blood pressure is 122/76, heart rate is 95, respiratory rate is 18, 98% sat on room air. NECK: 2+ carotid, radial and brachial pulses bilaterally. LUNGS: Clear. HEART: Regular rate and rhythm. ABDOMEN: Soft, nontender, nondistended. EXTREMITIES: 2+ femoral and popliteal pulses bilaterally. DP pulses are not palpable, PT pulse on t he right is palpable. On the left the foot is wrapped and I did not want to take the dressing off. I peeked underneath the toes, appear pink and the fifth toe has been partially amputated. There is n o drainage or staining on the dressings. Again, I reviewed his arterial duplex and it does show some tibial abnormalities; monophasic dorsalis pedis waveforms and there are triphasic posterior tibial w aveforms and he does have posterior tibial pulses bilaterally. He should have adequate circulation t o heal the wounds, but if there are any issues with healing over the next few weeks, I would consider an angiogram just given the abnormal findings on the arterial duplex. I discussed that with him. I will follow him along with you. Dictated By: ISMAEL GALEANA/MARY Conf#: [id number] DID#: [id number] CC: EDWARDO CERVANTES DPM; LAURI PEDERSEN MD; HIEU LANDIN MD; VERONICA BARRIOS; SANDRA ORELLANA MD;*[facility]*
[2018-12-29 20:00] VITALS: BP 128/71; PULSE 90; RESP 18
[2018-12-29] MEDS: INSULIN GLARGINE [LANTus] (100 UNITS/ML) SYG SC SCH (21:16)
--- NOTE | 2018-12-29 23:14 | PN ---
Date/Time of Note Date/Time of Note DATE: 12/29/18 TIME: 23:11 Assessment/Plan VTE Prophylaxis Risk score (from Nsg)>0 risk: 5 SCD applied (from Nsg): Yes SCD contraindicated: low risk/ambulating Pharmacological prophylaxis: LMWH Lines/Catheters IV Catheter Type (from Nrsg): Peripheral IV Urinary Cath still in place: No Assessment/Plan Hospital Course A/P 1 Lt foot OM/ abscess, sp I&D; sp 5th Ray Amp; stable cont atb/ Vac. picc/ iv's vs po's? 2 Gangrene 5th toe; sp 5th Ray Amp 3 Dm II ooc; insulin training 4. PAD? angio as needed. 5 Anemia 6 Cough S: 12/27 nonproductive cough 12/28 no events overnight. Patient in OR 12/29: events noted; in good spirits. O: vss PE no pallor reg s1s2 ;no mrg ctab bs+ nt; nd; no r r g lt foot c/d/i Result Diagram: 12/29/18 0429 12/29/18 0529 Results 24hrs Laboratory Tests Test 12/29/18 04:29 12/29/18 05:29 12/29/18 07:52 12/29/18 12:24 White Blood Count 11.1 H Red Blood Count 3.78 L Hemoglobin 10.1 L Hematocrit 31.5 L Mean Corpuscular 83.3 Volume Mean Corpuscular 26.7 L Hemoglobin Mean Corpuscular 32.1 Hemoglobin Concent Red Cell 13.1 Distribution Width Platelet Count 233 Mean Platelet Volume 11.0 H Immature 0.600 H Granulocytes % Neutrophils % 68.4 Lymphocytes % 21.4 Monocytes % 7.0 Eosinophils % 2.0 Basophils % 0.6 Nucleated Red Blood 0.0 Cells % Immature 0.070 H Granulocytes # Neutrophils # 7.6 H Lymphocytes # 2.4 Monocytes # 0.8 Eosinophils # 0.2 Basophils # 0.1 Nucleated Red Blood 0.0 Cells # Sodium Level 137 Potassium Level 3.2 L Chloride Level 100 Carbon Dioxide Level 30 Anion Gap 7 Blood Urea Nitrogen 8 Creatinine 0.45 L Est Glomerular > 60 Filtrat Rate mL/min Glucose Level 134 Calcium Level 8.9 Bedside Glucose 140 158 Test 12/29/18 17:18 12/29/18 21:06 Bedside Glucose 212 178 Exam/Review of Systems Exam Vitals Vital Signs Date Temp Pulse Resp B/P (MAP) Pulse Ox O2 O2 Flow FiO2 Time Delivery Rate 12/29/18 98.7 90 18 128/71 96 20:00 (90) 12/29/18 Room Air 15:01 12/28/18 3.0 14:11 Intake and Output 12/28/18 12/28/18 12/29/18 1515:00 23:00 07:00 IntakeIntake Total 800 ml 550 ml OutputOutput Total 50 ml 750 ml BalanceBalance 750 ml -200 ml Results Results 24hrs Laboratory Tests Test 12/29/18 04:29 12/29/18 05:29 12/29/18 07:52 12/29/18 12:24 White Blood Count 11.1 H Red Blood Count 3.78 L Hemoglobin 10.1 L Hematocrit 31.5 L Mean Corpuscular 83.3 Volume Mean Corpuscular 26.7 L Hemoglobin Mean Corpuscular 32.1 Hemoglobin Concent Red Cell 13.1 Distribution Width Platelet Count 233 Mean Platelet Volume 11.0 H Immature 0.600 H Granulocytes % Neutrophils % 68.4 Lymphocytes % 21.4 Monocytes % 7.0 Eosinophils % 2.0 Basophils % 0.6 Nucleated Red Blood 0.0 Cells % Immature 0.070 H Granulocytes # Neutrophils # 7.6 H Lymphocytes # 2.4 Monocytes # 0.8 Eosinophils # 0.2 Basophils # 0.1 Nucleated Red Blood 0.0 Cells # Sodium Level 137 Potassium Level 3.2 L Chloride Level 100 Carbon Dioxide Level 30 Anion Gap 7 Blood Urea Nitrogen 8 Creatinine 0.45 L Est Glomerular > 60 Filtrat Rate mL/min Glucose Level 134 Calcium Level 8.9 Bedside Glucose 140 158 Test 12/29/18 17:18 12/29/18 21:06 Bedside Glucose 212 178 Medications Medication Current Medications IV Flush (NS 3 ml) 3 ml PER PROTOCOL IV ; Start 12/24/18 at 23:30 Ondansetron HCl (Zofran Inj) 4 mg Q6H PRN IV NAUSEA/VOMITING; Start 12/24/18 at 23:30 Acetaminophen (Tylenol Tab) 650 mg Q6H PRN PO .PAIN 1-3 OR TEMP Last administered on 12/26/18at 01:32; Admin Dose 650 MG; Start 12/24/18 at 23:30 Acetaminophen/ Hydrocodone Bitart ([place] (5/325)) 1 tab Q6H PRN PO .MOD PAIN 4- 6; Start 12/24/18 at 23:30 Docusate Sodium (Colace) 100 mg Q12H PRN PO .CONSTIPATION; Start 12/24/18 at 23:30 Bisacodyl (Dulcolax) 5 mg DAILY PRN PO .CONSTIPATION; Start 12/24/18 at 23:30 Enoxaparin Sodium (Lovenox) 30 mg DAILY SC Last administered on 12/25/18 08:29; Admin Dose 30 MG; Start 12/25/18 at 09:00; Status Hold Diagnostic Test (Pha) (Accu-Chek) 1 ea 02 XX Last administered on 12/28/18 02:05; Admin Dose 1 EA; Start 12/25/18 at 02:00 Insulin Aspart (Novolog Insulin Pen) NOVOLOG *MILD* ALGORITHM WITH MEALS BEDTIME SC Last administered on 12/29/18 17:21; Admin Dose 2 UNIT; Start 12/25/18 at 08:00 Sodium Hypochlorite (Dakin'S (Dilute 1/40)) 1 applic BID IRR Last administered on 12/28/18 08:09; Admin Dose 1 APPLIC; Start 12/25/18 at 21:00 Insulin Aspart (Novolog Insulin Pen) 10 unit WITH MEALS SC Last administered on 12/29/18 17:20; Admin Dose 10 UNIT; Start 12/26/18 at 11:30 Cholecalciferol (Vitamin D) 2,000 unit DAILY PO Last administered on 12/29/18 07:59; Admin Dose 2,000 UNIT; Start 12/26/18 at 13:00 Ceftriaxone Sodium 50 ml @ 100 mls/hr Q24H IVPB Last administered on 12/29/18 12:30; Admin Dose 100 MLS/HR; Start 12/27/18 at 12:00 Insulin Glargine (Lantus) 30 units DAILY@2000 SC Last administered on 12/29/18 21:16; Admin Dose 30 UNITS; Start 12/27/18 at 20:00 Lactobacillus Acidophilus/ Rhamnosus (Culturelle) 1 cap BID PO Last administered on 12/29/18 21:12; Admin Dose 1 CAP; Start 12/27/18 at 21:00 Aspirin (Halfprin) 81 mg DAILY PO Last administered on 12/29/18at 07:59; Admin Dose 81 MG; Start 12/28/18 at 09:00 Miscellaneous Information 1 ea NOTE XX ; Start 12/27/18 at 18:30 Glucose (Glutose) 15 gm Q15M PRN PO DECREASED GLUCOSE; Start 12/27/18 at 18:30 Glucose (Glutose) 22.5 gm Q15M PRN PO DECREASED GLUCOSE; Start 12/27/18 at 18:30 Dextrose (D50w Syringe) 25 ml Q15M PRN IV DECREASED GLUCOSE; Start 12/27/18 at 18:30 Dextrose (D50w Syringe) 50 ml Q15M PRN IV DECREASED GLUCOSE; Start 12/27/18 at 18:30 Glucagon (Glucagen) 1 mg Q15M PRN IM DECREASED GLUCOSE; Start 12/27/18 at 18:30 Glucose (Glutose) 15 gm Q15M PRN BUCCAL DECREASED GLUCOSE; Start 12/27/18 at 18:30 Guaifenesin/ Dextromethorphan (Robitussin Dm Liquid Cup) 10 ml Q4H PRN PO COUGH; Start 12/27/18 at 19:30 Morphine Sulfate (morphine) 6 mg Q4H PRN PO SEVERE PAIN LEVEL 7-10; Start 12/27/18 at 23:30 Repaglinide (Prandin) 2 mg AC MEALS PO ; Start 12/30/18 at 07:30 LOUIE LANDIN MD Dec 29, 2018 23:14
[2018-12-30] MEDS: ACETAMINOPHEN 325 MG TAB PO PRN (01:01)
[2018-12-30 02:00] VITALS: BP 140/77; PULSE 89; RESP 18
[2018-12-30] MEDS: ACCU-CHEK XX SCH (02:00)
[2018-12-30 08:00] VITALS: BP 142/77; PULSE 75; RESP 18
[2018-12-30] MEDS: INSULIN ASPART [NOVOLOG] 3 ML PEN SC SCH ×7 (08:00→20:22)
[2018-12-30] MEDS: CHOLECALCIFEROL 2,000 UNIT CAP PO SCH (08:11)
[2018-12-30] MEDS: LACTOBACILLUS RHAMNOSUS CAP PO SCH ×2 (08:11→20:21)
[2018-12-30] MEDS: REPAGLINIDE 2 MG TAB PO SCH ×3 (08:11→17:46)
[2018-12-30] MEDS: ASPIRIN (EC) 81 MG TAB PO SCH (08:11)
[2018-12-30] MEDS: SODIUM HYPOCHLORITE (1/40) 1 APPLIC BTL IRR SCH ×2 (08:21→20:22)
[2018-12-30] MEDS: CEFTRIAXONE 2 GM/50 ML (PMX) 50 ML IVPB SCH (12:00)
--- NOTE | 2018-12-30 14:15 | CONS ---
Assessment/Plan Assessment/Plan Hospital Course (Demo Recall) All noted. No acute events, no fevers Microbiology: Wound culture growing strep agalactiae urine culture growing BEAU Antimicrobials: Rocephin Physical examination: Obese well-developed middle-aged man who is alert in no distress. Head atraumatic normocephalic. Neck is supple. Chest rise symmetrical breath sounds clear. Heart: S1-S2. Abdomen soft bowel sounds present. Extremities: Left foot dressing intact left lower extremity edematous with slight erythema Assessment: 1. Resolving sepsis, present on admission 2. 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 Poorly controlled diabetes 4. Obesity 5. Peripheral vascular and arterial disease 6. UTI Plan: Patient remained stable, continue wound management per podiatry, consider PICC. Patient to continue on current antibiotics for 4-6 weeks Consultation Date/Type/Reason Admit Date/Time Dec 24, 2018 at 21:20 Initial Consult Date Type of Consult id Date/Time of Note DATE: 12/30/18 TIME: 14:14 Exam/Review of Systems Exam Vitals Vital Signs Date Temp Pulse Resp B/P (MAP) Pulse Ox O2 O2 Flow FiO2 Time Delivery Rate 12/30/18 97.7 75 18 142/77 96 Room Air 08:00 (98) 12/28/18 3.0 14:11 Intake and Output 12/29/18 12/29/18 12/30/18 1515:00 23:00 07:00 IntakeIntake Total 910 ml 400 ml 480 ml OutputOutput Total 550 ml 225 ml 800 ml BalanceBalance 360 ml 175 ml -320 ml Results Result Diagram: 12/29/18 0429 12/29/18 0529 Results 24hrs Laboratory Tests Test 12/29/18 17:18 12/29/18 21:06 12/30/18 08:09 12/30/18 12:14 Bedside Glucose 212 178 136 121 Medications Medication Current Medications IV Flush (NS 3 ml) 3 ml PER PROTOCOL IV ; Start 12/24/18 at 23:30 Ondansetron HCl (Zofran Inj) 4 mg Q6H PRN IV NAUSEA/VOMITING; Start 12/24/18 at 23:30 Acetaminophen (Tylenol Tab) 650 mg Q6H PRN PO .PAIN 1-3 OR TEMP Last administered on 12/30/18 01:01; Admin Dose 650 MG; Start 12/24/18 at 23:30 Acetaminophen/ Hydrocodone Bitart ([place] (5/325)) 1 tab Q6H PRN PO .MOD PAIN 4- 6; Start 12/24/18 at 23:30 Docusate Sodium (Colace) 100 mg Q12H PRN PO .CONSTIPATION Last administered on 12/30/18 06:19; Admin Dose 100 MG; Start 12/24/18 at 23:30 Bisacodyl (Dulcolax) 5 mg DAILY PRN PO .CONSTIPATION; Start 12/24/18 at 23:30 Enoxaparin Sodium (Lovenox) 30 mg DAILY SC Last administered on 12/25/18 08:29; Admin Dose 30 MG; Start 12/25/18 at 09:00; Status Hold Diagnostic Test (Pha) (Accu-Chek) 1 ea 02 XX Last administered on 12/28/18 02:05; Admin Dose 1 EA; Start 12/25/18 at 02:00 Insulin Aspart (Novolog Insulin Pen) NOVOLOG *MILD* ALGORITHM WITH MEALS BEDTIME SC Last administered on 12/29/18 17:21; Admin Dose 2 UNIT; Start 12/25/18 at 08:00 Sodium Hypochlorite (Dakin'S (Dilute 140)) 1 applic BID IRR Last administered on 12/28/18 08:09; Admin Dose 1 APPLIC; Start 12/25/18 at 21:00 Insulin Aspart (Novolog Insulin Pen) 10 unit WITH MEALS SC Last administered on 12/30/18 12:15; Admin Dose 10 UNIT; Start 12/26/18 at 11:30 Cholecalciferol (Vitamin D) 2,000 unit DAILY PO Last administered on 12/30/18 08:11; Admin Dose 2,000 UNIT; Start 12/26/18 at 13:00 Ceftriaxone Sodium 50 ml @ 100 mls/hr Q24H IVPB Last administered on 12/30/18 12:00; Admin Dose 100 MLS/HR; Start 12/27/18 at 12:00 Insulin Glargine (Lantus) 30 units DAILY@2000 SC Last administered on 12/29/18 21:16; Admin Dose 30 UNITS; Start 12/27/18 at 20:00 Lactobacillus Acidophilus/ Rhamnosus (Culturelle) 1 cap BID PO Last adm inistered on 12/30/18at 08:11; Admin Dose 1 CAP; Start 12/27/18 at 21:00 Aspirin (Halfprin) 81 mg DAILY PO Last administered on 12/30/18 08:11; Admin Dose 81 MG; Start 12/28/18 at 09:00 Miscellaneous Information 1 ea NOTE XX ; Start 12/27/18 at 18:30 Glucose (Glutose) 15 gm Q15M PRN PO DECREASED GLUCOSE; Start 12/27/18 at 18:30 Glucose (Glutose) 22.5 gm Q15M PRN PO DECREASED GLUCOSE; Start 12/27/18 at 18:30 Dextrose (D50w Syringe) 25 ml Q15M PRN IV DECREASED GLUCOSE; Start 12/27/18 at 18:30 Dextrose (D50w Syringe) 50 ml Q15M PRN IV DECREASED GLUCOSE; Start 12/27/18 at 18:30 Glucagon (Glucagen) 1 mg Q15M PRN IM DECREASED GLUCOSE; Start 12/27/18 at 18:30 Glucose (Glutose) 15 gm Q15M PRN BUCCAL DECREASED GLUCOSE; Start 12/27/18 at 18:30 Guaifenesin/ Dextromethorphan (Robitussin Dm Liquid Cup) 10 ml Q4H PRN PO COUGH; Start 12/27/18 at 19:30 Morphine Sulfate (morphine) 6 mg Q4H PRN PO SEVERE PAIN LEVEL 7-10; Start 12/27/18 at 23:30 Repaglinide (Prandin) 2 mg AC MEALS PO Last administered on 12/30/18at 12:17; Admin Dose 2 MG; Start 12/30/18 at 07:30 MERCED MERINO NP Dec 30, 2018 14:15
[2018-12-30 14:20] VITALS: BP 141/66; PULSE 84; RESP 20
[2018-12-30] MEDS ORDERED: LIDOCAINE 1% (MPF) 5 ML VIAL SC ONE (17:00)
--- NOTE | 2018-12-30 17:00 | PN ---
Date/Time of Note Date/Time of Note DATE: 12/30/18 TIME: 16:59 Assessment/Plan VTE Prophylaxis Risk score (from Ns)>0 risk: 7 SCD applied (from Ns): Yes SCD contraindicated: low risk/ambulating Pharmacological prophylaxis: NA/contraindicated, LMWH Pharm contraindication: surgical contra Lines/Catheters IV [facility]from [facility] Peripheral IV Urinary Cath still in place: No Assessment/Plan Hospital Course A/P 1 Lt foot OM/ abscess, sp I&D; sp 5th Ray Amp; stable cont atb/ Vac. picc/ iv's. home when ok w podiatry. 2 Gangrene 5th toe; sp 5th Ray Amp 3 Dm II ooc; insulin training 4. PAD? added asa; angio as needed. 5 Anemia 6 Cough S: 12/27 nonproductive cough 12/28 no events overnight. Patient in OR 12/29: events noted; in good spirits 12/30: No events no fever diarrhea O: vss PE no pallor reg s1s2 ;no mrg ctab bs+ nt; nd; no r r g lt foot c/d/i; vac in place Result Diagram: 12/29/18 0429 12/29/18 0529 Results 24hrs Laboratory Tests Test 12/29/18 17:18 12/29/18 21:06 12/30/18 08:09 12/30/18 12:14 Bedside Glucose 212 178 136 121 Exam/Review of Systems Exam Vitals Vital Signs Date Temp Pulse Resp B/P (MAP) Pulse Ox O2 O2 Flow FiO2 Time Delivery Rate 12/30/18 98.6 84 20 141/66 98 Room Air 14:20 (91) 12/28/18 3.0 14:11 Intake and Output 12/29/18 12/29/18 12/30/18 1515:00 23:00 07:00 IntakeIntake Total 910 ml 400 ml 480 ml OutputOutput Total 550 ml 225 ml 800 ml BalanceBalance 360 ml 175 ml -320 ml Results Results 24hrs Laboratory Tests Test 12/29/18 17:18 12/29/18 21:06 12/30/18 08:09 12/30/18 12:14 Bedside Glucose 212 178 136 121 Medications Medication Current Medications IV Flush (NS 3 ml) 3 ml PER PROTOCOL IV ; Start 12/24/18 at 23:30 Ondansetron HCl (Zofran Inj) 4 mg Q6H PRN IV NAUSEA/VOMITING; Start 12/24/18 at 23:30 Acetaminophen (Tylenol Tab) 650 mg Q6H PRN PO .PAIN 1-3 OR TEMP Last administered on 12/30/18 01:01; Admin Dose 650 MG; Start 12/24/18 at 23:30 Acetaminophen/ Hydrocodone Bitart ([place] (5/325)) 1 tab Q6H PRN PO .MOD PAIN 4- 6; Start 12/24/18 at 23:30 Docusate Sodium (Colace) 100 mg Q12H PRN PO .CONSTIPATION Last administered on 12/30/18 06:19; Admin Dose 100 MG; Start 12/24/18 at 23:30 Bisacodyl (Dulcolax) 5 mg DAILY PRN PO .CONSTIPATION; Start 12/24/18 at 23:30 Enoxaparin Sodium (Lovenox) 30 mg DAILY SC Last administered on 12/25/18 08:29; Admin Dose 30 MG; Start 12/25/18 at 09:00; Status Hold Diagnostic Test (Pha) (Accu-Chek) 1 ea 02 XX Last administered on 12/28/18 02:05; Admin Dose 1 EA; Start 12/25/18 at 02:00 Insulin Aspart (Novolog Insulin Pen) NOVOLOG *MILD* ALGORITHM WITH MEALS BEDTIME SC Last administered on 12/29/18 17:21; Admin Dose 2 UNIT; Start 12/25/18 at 08:00 Sodium Hypochlorite (Dakin'S (Dilute 40)) 1 applic BID IRR Last administered on 12/28/18 08:09; Admin Dose 1 APPLIC; Start 12/25/18 at 21:00 Insulin Aspart (Novolog Insulin Pen) 10 unit WITH MEALS SC Last administered on 12/30/18 12:15; Admin Dose 10 UNIT; Start 12/26/18 at 11:30 Cholecalciferol (Vitamin D) 2,000 unit DAILY PO Last administered on 12/30/18 08:11; Admin Dose 2,000 UNIT; Start 12/26/18 at 13:00 Ceftriaxone Sodium 50 ml @ 100 mls/hr Q24H IVPB Last administered on 2/14/19at 12:00; Admin Dose 100 MLS/HR; Start 12/27/18 at 12:00 Insulin Glargine (Lantus) 30 units DAILY@2000 SC Last administered on 12/29/18at 21:16; Admin Dose 30 UNITS; Start 12/27/18 at 20:00 Lactobacillus Acidophilus/ Rhamnosus (Culturelle) 1 cap BID PO Last administered on 12/30/18at 08:11; Admin Dose 1 CAP; Start 12/27/18 at 21:00 Aspirin (Halfprin) 81 mg DAILY PO Last administered on 12/30/18at 08:11; Admin Dose 81 MG; Start 12/28/18 at 09:00 Miscellaneous Information 1 ea NOTE XX ; Start 12/27/18 at 18:30 Glucose (Glutose) 15 gm Q15M PRN PO DECREASED GLUCOSE; Start 12/27/18 at 18:30 Glucose (Glutose) 22.5 gm Q15M PRN PO DECREASED GLUCOSE; Start 12/27/18 at 18:30 Dextrose (D50w Syringe) 25 ml Q15M PRN IV DECREASED GLUCOSE; Start 12/27/18 at 18:30 Dextrose (D50w Syringe) 50 ml Q15M PRN IV DECREASED GLUCOSE; Start 12/27/18 at 18:30 Glucagon (Glucagen) 1 mg Q15M PRN IM DECREASED GLUCOSE; Start 12/27/18 at 18:30 Glucose (Glutose) 15 gm Q15M PRN BUCCAL DECREASED GLUCOSE; Start 12/27/18 at 18:30 Guaifenesin/ Dextromethorphan (Robitussin Dm Liquid Cup) 10 ml Q4H PRN PO COUGH; Start 12/27/18 at 19:30 Morphine Sulfate (morphine) 6 mg Q4H PRN PO SEVERE PAIN LEVEL 7-10; Start 12/27/18 at 23:30 Repaglinide (Prandin) 2 mg AC MEALS PO Last administered on 12/30/18at 12:17; Admin Dose 2 MG; Start 12/30/18 at 07:30 Lidocaine (Xylocaine 1% (Mpf)) 5 ml ONCE ONCE SC ; Start 12/30/18 at 17:00; Stop 12/30/18 at 17:01 LOUIE LANDIN MD Dec 30, 2018 17:00
--- NOTE | 2018-12-30 18:52 | PN ---
Date/Time of Note Date/Time of Note DATE: 12/30/18 TIME: 18:50 Assessment/Plan VTE Prophylaxis Risk score (from Nsg)>0 risk: 7 Pharmacological prophylaxis: other Lines/Catheters IV Catheter Type (from Nrsg): Peripheral IV Urinary Cath still in place: No Assessment/Plan Assessment/Plan R hallux superficial ulcer R corns/callus Left foot diabetic ulcer Left foot gangrene - s/p left partial 5th ray resection with allograft and wound VAC application(DOS: 12/28/18) Left foot cellulitis Left foot osteomyelitis - s/p left partial 5th ray resection (DOS: 12/28/18) DM2 with peripheral neuropathy Plan: Wound VAC tubing changed and functional at 125mmHg low continuous therapy. Disability paper work completed. 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 Recommend wound care nursing to wound VAC MWF. Right hallux callus paring with superficial lesion noted. Wound Cx showing staph species and strep agalactiae group B. Continue with abx as recommended. Patient to remain non weight bearing to left lower extremity. Recommend bandaid and triple anbx therapy to the right hallux superficial lesion site. Result Diagram: 12/29/18 0429 12/29/18 0529 Results 24hrs Laboratory Tests Test 12/29/18 21:06 12/30/18 08:09 12/30/18 12:14 12/30/18 17:43 Bedside Glucose 178 136 121 100 Subjective 24 Hr Interval Summary Free Text/Dictation No acute events overnight. Exam/Review of Systems Exam Vitals Vital Signs Date Temp Pulse Resp B/P (MAP) Pulse Ox O2 O2 Flow FiO2 Time Delivery Rate 12/30/18 98.6 84 20 141/66 98 Room Air 14:20 (91) 12/28/18 3.0 14:11 Intake and Output 12/29/18 12/29/18 12/30/18 1515:00 23:00 07:00 IntakeIntake Total 910 ml 400 ml 480 ml OutputOutput Total 550 ml 225 ml 800 ml BalanceBalance 360 ml 175 ml -320 ml Exam wound vac dressings clean dry and intact. Serosanguinous drainage appreciated to wound VAC canister Right plantar hallux with hyperkeratotic lesion and superficial wound site noted post paring of callus. absent protective sensations Left partial 5th ray resection noted. Results Results 24hrs Laboratory Tests Test 12/29/18 21:06 12/30/18 08:09 12/30/18 12:14 12/30/18 17:43 Bedside Glucose 178 136 121 100 Medications Medication Current Medications IV Flush (NS 3 ml) 3 ml PER PROTOCOL IV ; Start 12/24/18 at 23:30 Ondansetron HCl (Zofran Inj) 4 mg Q6H PRN IV NAUSEA/VOMITING; Start 12/24/18 at 23:30 Acetaminophen (Tylenol Tab) 650 mg Q6H PRN PO .PAIN 1-3 OR TEMP Last administered on 12/30/18at 01:01; Admin Dose 650 MG; Start 12/24/18 at 23:30 Acetaminophen/ Hydrocodone Bitart ([place] (5/325)) 1 tab Q6H PRN PO .MOD PAIN 4- 6; Start 12/24/18 at 23:30 Docusate Sodium (Colace) 100 mg Q12H PRN PO .CONSTIPATION Last administered on 12/30/18 06:19; Admin Dose 100 MG; Start 12/24/18 at 23:30 Bisacodyl (Dulcolax) 5 mg DAILY PRN PO .CONSTIPATION; Start 12/24/18 at 23:30 Enoxaparin Sodium (Lovenox) 30 mg DAILY SC Last administered on 12/25/18 08:29; Admin Dose 30 MG; Start 12/25/18 at 09:00; Status Hold Diagnostic Test (Pha) (Accu-Chek) 1 ea 02 XX Last administered on 12/28/18 02: 05; Admin Dose 1 EA; Start 12/25/18 at 02:00 Insulin Aspart (Novolog Insulin Pen) NOVOLOG *MILD* ALGORITHM WITH MEALS BEDTIME SC Last administered on 12/29/18 17:21; Admin Dose 2 UNIT; Start 12/25/18 at 08:00 Sodium Hypochlorite (Dakin'S (Dilute 40)) 1 applic BID IRR Last administered on 12/28/18 08:09; Admin Dose 1 APPLIC; Start 12/25/18 at 21:00 Insulin Aspart (Novolog Insulin Pen) 10 unit WITH MEALS SC Last administered on 12/30/18at 17:47; Admin Dose 10 UNIT; Start 12/26/18 at 11:30 Cholecalciferol (Vitamin D) 2,000 unit DAILY PO Last administered on 12/30/18at 08:11; Admin Dose 2,000 UNIT; Start 12/26/18 at 13:00 Ceftriaxone Sodium 50 ml @ 100 mls/hr Q24H IVPB Last administered on 12/30/18at 12:00; Admin Dose 100 MLS/HR; Start 12/27/18 at 12:00 Insulin Glargine (Lantus) 30 units DAILY@2000 SC Last administered on 12/29/18at 21:16; Admin Dose 30 UNITS; Start 12/27/18 at 20:00 Lactobacillus Acidophilus/ Rhamnosus (Culturelle) 1 cap BID PO Last administered on 12/30/18at 08:11; Admin Dose 1 CAP; Start 12/27/18 at 21:00 Aspirin (Halfprin) 81 mg DAILY PO Last administered on 12/30/18at 08:11; Admin Dose 81 MG; Start 12/28/18 at 09:00 Miscellaneous Information 1 ea NOTE XX ; Start 12/27/18 at 18:30 Glucose (Glutose) 15 gm Q15M PRN PO DECREASED GLUCOSE; Start 12/27/18 at 18:30 Glucose (Glutose) 22.5 gm Q15M PRN PO DECREASED GLUCOSE; Start 12/27/18 at 18:30 Dextrose (D50w Syringe) 25 ml Q15M PRN IV DECREASED GLUCOSE; Start 12/27/18 at 18:30 Dextrose (D50w Syringe) 50 ml Q15M PRN IV DECREASED GLUCOSE; Start 12/27/18 at 18:30 Glucagon (Glucagen) 1 mg Q15M PRN IM DECREASED GLUCOSE; Start 12/27/18 at 18:30 Glucose (Glutose) 15 gm Q15M PRN BUCCAL DECREASED GLUCOSE; Start 12/27/18 at 18:30 Guaifenesin/ Dextromethorphan (Robitussin Dm Liquid Cup) 10 ml Q4H PRN PO COU GH; Start 12/27/18 at 19:30 Morphine Sulfate (morphine) 6 mg Q4H PRN PO SEVERE PAIN LEVEL 7-10; Start 12/27/18 at 23:30 Repaglinide (Prandin) 2 mg AC MEALS PO Last administered on 12/30/18at 17:46; Admin Dose 2 MG; Start 12/30/18 at 07:30 Neomycin/ Polymyxin/ Bacitracin (Neosporin Topical Oint) 1 applic DAILY TOP ; Start 12/31/18 at 09:00 VERONICA BARRIOS DPM Dec 30, 2018 18:52
[2018-12-30 20:00] VITALS: BP 136/67; PULSE 95; RESP 18
[2018-12-30] MEDS: INSULIN GLARGINE [LANTus] (100 UNITS/ML) SYG SC SCH (20:22)
[2018-12-31 02:00] VITALS: BP 145/76; PULSE 89; RESP 18
[2018-12-31] MEDS: ACCU-CHEK XX SCH (02:00)
[2018-12-31] MEDS: INSULIN ASPART [NOVOLOG] 3 ML PEN SC SCH ×7 (08:00→20:26)
[2018-12-31] MEDS: REPAGLINIDE 2 MG TAB PO SCH ×3 (08:06→17:31)
[2018-12-31 08:32] VITALS: BP 136/81; PULSE 83; RESP 18
[2018-12-31] MEDS: SODIUM HYPOCHLORITE (1/40) 1 APPLIC BTL IRR SCH ×2 (08:37→20:25)
[2018-12-31] MEDS: CHOLECALCIFEROL 2,000 UNIT CAP PO SCH (08:40)
[2018-12-31] MEDS: LACTOBACILLUS RHAMNOSUS CAP PO SCH ×2 (08:40→20:24)
[2018-12-31] MEDS: NEOMYC/POLYMYX/BACIT 30 GM OINT TOP SCH (08:40)
[2018-12-31] MEDS: ASPIRIN (EC) 81 MG TAB PO SCH (08:40)
[2018-12-31] MEDS: ENOXAPARIN 30 MG/0.3 ML SYG SC SCH (08:44)
--- NOTE | 2018-12-31 11:13 | CONS ---
Assessment/Plan Assessment/Plan Hospital Course (Demo Recall) All noted. No acute events, awake, looks comfortable, afebrile Microbiology: Wound culture growing strep agalactiae urine culture growing BEAU Antimicrobials: Rocephin Physical examination: Obese well-developed middle-aged man who is alert in no distress. Head atraumatic normocephalic. Neck is supple. Chest rise symmetrical breath sounds clear. Heart: S1-S2. Abdomen soft bowel sounds present. Extremities: Left foot dressing intact left lower extremity edematous with slight erythema Assessment: 1. Resolving sepsis, present on admission 2. 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 Poorly controlled diabetes 4. Obesity 5. Peripheral vascular and arterial disease 6. UTI Plan: Patient remained stable, continue wound management per podiatry, consider PICC. Patient to continue on current antibiotics for 4 more weeks, poss longer DW DR [place] Consultation Date/Type/Reason Admit Date/Time Dec 24, 2018 at 21:20 Initial Consult Date Type of Consult id Date/Time of Note DATE: 12/31/18 TIME: 11:12 Exam/Review of Systems Exam Vitals Vital Signs Date Temp Pulse Resp B/P (MAP) Pulse Ox O2 O2 Flow FiO2 Time Delivery Rate 12/31/18 97.8 83 18 136/81 98 Room Air 08:32 (99) 12/28/18 3.0 14:11 Intake and Output 12/30/18 12/30/18 12/31/18 1515:00 23:00 07:00 IntakeIntake Total 50 ml 900 ml 100 ml OutputOutput Total 600 ml BalanceBalance 50 ml 300 ml 100 ml Results Result Diagram: 12/31/18 0539 12/31/18 0539 Results 24hrs Laboratory Tests Test 12/30/18 12:14 12/30/18 17:43 12/30/18 20:20 12/31/18 05:39 Bedside Glucose 121 100 125 White Blood Count 12.1 H Red Blood Count 4.22 L Hemoglobin 11.3 L Hematocrit 35.8 L Mean Corpuscular 84.8 Volume Mean Corpuscular 26.8 L Hemoglobin Mean Corpuscular 31.6 L Hemoglobin Concent Red Cell 12.9 Distribution Width Platelet Count 299 # Mean Platelet Volume 10.7 H Immature 0.600 H Granulocytes % Neutrophils % 62.5 Lymphocytes % 28.8 Monocytes % 5.0 Eosinophils % 2.4 Basophils % 0.7 Nucleated Red Blood 0.0 Cells % Immature 0.070 H Granulocytes # Neutrophils # 7.6 H Lymphocytes # 3.5 H Monocytes # 0.6 Eosinophils # 0.3 Basophils # 0.1 Nucleated Red Blood 0.0 Cells # Sodium Level 141 Potassium Level 3.9 Chloride Level 102 Carbon Dioxide Level 31 Anion Gap 8 Blood Urea Nitrogen 12 Creatinine 0.46 L Est Glomerular > 60 Filtrat Rate mL/min Glucose Level 121 Calcium Level 9.5 Test 12/31/18 08:03 Bedside Glucose 113 Medications Medication Current Medications IV Flush (NS 3 ml) 3 ml PER PROTOCOL IV ; Start 12/24/18 at 23:30 Ondansetron HCl (Zofran Inj) 4 mg Q6H PRN IV NAUSEA/VOMITING; Start 12/24/18 at 23:30 Acetaminophen (Tylenol Tab) 650 mg Q6H PRN PO .PAIN 1-3 OR TEMP Last administered on 12/30/18at 01:01; Admin Dose 650 MG; Start 12/24/18 at 23:30 Acetaminophen/ Hydrocodone Bitart ([place] (5/325)) 1 tab Q6H PRN PO .MOD PAIN 4- 6; Start 12/24/18 at 23:30 Docusate Sodium (Colace) 100 mg Q12H PRN PO .CONSTIPATION Last administered on 12/30/18at 06:19; Admin Dose 100 MG; Start 12/24/18 at 23:30 Bisacodyl (Dulcolax) 5 mg DAILY PRN PO .CONSTIPATION; Start 12/24/18 at 23:30 Enoxaparin Sodium (Lovenox) 30 mg DAILY SC Last administered on 12/31/18at 08:44; Admin Dose 30 MG; Start 12/25/18 at 09:00 Diagnostic Test (Pha) (Accu-Chek) 1 ea 02 XX Last administered on 12/28/18at 02:05; Admin Dose 1 EA; Start 12/25/18 at 02:00 Insulin Aspart (Novolog Insulin Pen) NOVOLOG *MILD* ALGORITHM WITH MEALS BEDTIME SC Last administered on 12/29/18at 17:21; Admin Dose 2 UNIT; Start 12/25/18 at 08:00 Sodium Hypochlorite (Dakin'S (Dilute )) 1 applic BID IRR Last administered on 12/28/18 08:09; Admin Dose 1 APPLIC; Start 12/25/18 at 21:00 Insulin Aspart (Novolog Insulin Pen) 10 unit WITH MEALS SC Last administered on 12/31/18 08:06; Admin Dose 10 UNIT; Start 12/26/18 at 11:30 Cholecalciferol (Vitamin D) 2,000 unit DAILY PO Last administered on 12/31/18 08:40; Admin Dose 2,000 UNIT; Start 12/26/18 at 13:00 Ceftriaxone Sodium 50 ml @ 100 mls/hr Q24H IVPB Last administered on 12/30/18 12:00; Admin Dose 100 MLS/HR; Start 12/27/18 at 12:00 Insulin Glargine (Lantus) 30 units DAILY@2000 SC Last administered on 12/30/18 20:22; Admin Dose 30 UNITS; Start 12/27/18 at 20:00 Lactobacillus Acidophilus/ Rhamnosus (Culturelle) 1 cap BID PO Last ad ministered on 12/31/18 08:40; Admin Dose 1 CAP; Start 12/27/18 at 21:00 Aspirin (Halfprin) 81 mg DAILY PO Last administered on 12/31/18 08:40; Admin Dose 81 MG; Start 12/28/18 at 09:00 Miscellaneous Information 1 ea NOTE XX ; Start 12/27/18 at 18:30 Glucose (Glutose) 15 gm Q15M PRN PO DECREASED GLUCOSE; Start 12/27/18 at 18:30 Glucose (Glutose) 22.5 gm Q15M PRN PO DECREASED GLUCOSE; Start 12/27/18 at 18:30 Dextrose (D50w Syringe) 25 ml Q15M PRN IV DECREASED GLUCOSE; Start 12/27/18 at 18:30 Dextrose (D50w Syringe) 50 ml Q15M PRN IV DECREASED GLUCOSE; Start 12/27/18 at 18:30 Glucagon (Glucagen) 1 mg Q15M PRN IM DECREASED GLUCOSE; Start 12/27/18 at 18:30 Glucose (Glutose) 15 gm Q15M PRN BUCCAL DECREASED GLUCOSE; Start 12/27/18 at 18:30 Guaifenesin/ Dextromethorphan (Robitussin Dm Liquid Cup) 10 ml Q4H PRN PO COUGH; Start 12/27/18 at 19:30 Morphine Sulfate (morphine) 6 mg Q4H PRN PO SEVERE PAIN LEVEL 7-10; Start 12/27/18 at 23:30 Repaglinide (Prandin) 2 mg AC MEALS PO Last administered on 12/31/18at 08:06; Admin Dose 2 MG; Start 12/30/18 at 07:30 Neomycin/ Polymyxin/ Bacitracin (Neosporin Topical Oint) 1 applic DAILY TOP Last administered on 12/31/18at 08:40; Admin Dose 1 APPLIC; Start 12/31/18 at 09:00 MERCED MERINO NP Dec 31, 2018 11:13
[2018-12-31] MEDS: CEFTRIAXONE 2 GM/50 ML (PMX) 50 ML IVPB SCH (12:08)
[2018-12-31 14:35] VITALS: BP 120/73; PULSE 88; RESP 18
--- NOTE | 2018-12-31 15:48 | PN ---
Date/Time of Note Date/Time of Note DATE: 12/31/18 TIME: 15:47 Assessment/Plan VTE Prophylaxis Risk score (from Ns)>0 risk: 1 SCD applied (from Ns): Yes SCD contraindicated: low risk/ambulating Pharmacological prophylaxis: LMWH Lines/Catheters IV Catheter Type (from Nrsg): [place] Urinary Cath still in place: No Assessment/Plan Hospital Course A/P 1 Lt foot OM/ abscess, sp I&D; sp 5th Ray Amp; stable cont atb/ Vac/ wound care/ picc/ iv's. home when Vac/ antibiotics available. 2 Gangrene 5th toe; sp 5th Ray Amp 3 Dm II ooc; insulin training 4. PAD? added asa; angio as needed. 5 Anemia 6 Cough S: 12/27 nonproductive cough 12/28 no events overnight. Patient in OR 12/29: events noted; in good spirits 12/30: No events no fever diarrhea 12/31: no events; awaiting picc O: vss PE no pallor reg s1s2 ;no mrg ctab bs+ nt; nd; no r r g lt foot c/d/i; vac in place Result Diagram: 12/31/18 0539 12/31/18 0539 Results 24hrs Laboratory Tests Test 12/30/18 17:43 12/30/18 20:20 12/31/18 05:39 12/31/18 08:03 Bedside Glucose 100 125 113 White Blood Count 12.1 H Red Blood Count 4.22 L Hemoglobin 11.3 L Hematocrit 35.8 L Mean Corpuscular 84.8 Volume Mean Corpuscular 26.8 L Hemoglobin Mean Corpuscular 31.6 L Hemoglobin Concent Red Cell 12.9 Distribution Width Platelet Count 299 # Mean Platelet Volume 10.7 H Immature 0.600 H Granulocytes % Neutrophils % 62.5 Lymphocytes % 28.8 Monocytes % 5.0 Eosinophils % 2.4 Basophils % 0.7 Nucleated Red Blood 0.0 Cells % Immature 0.070 H Granulocytes # Neutrophils # 7.6 H Lymphocytes # 3.5 H Monocytes # 0.6 Eosinophils # 0.3 Basophils # 0.1 Nucleated Red Blood 0.0 Cells # Sodium Level 141 Potassium Level 3.9 Chloride Level 102 Carbon Dioxide Level 31 Anion Gap 8 Blood Urea Nitrogen 12 Creatinine 0.46 L Est Glomerular > 60 Filtrat Rate mL/min Glucose Level 121 Calcium Level 9.5 Test 12/31/18 12:12 Bedside Glucose 93 Exam/Review of Systems Exam Vitals Vital Signs Date Temp Pulse Resp B/P (MAP) Pulse Ox O2 O2 Flow FiO2 Time Delivery Rate 12/31/18 97.7 88 18 120/73 97 Room Air 14:35 (89) 12/28/18 3.0 14:11 Intake and Output 12/30/18 12/30/18 12/31/18 1515:00 23:00 07:00 IntakeIntake Total 50 ml 900 ml 100 ml OutputOutput Total 600 ml BalanceBalance 50 ml 300 ml 100 ml Results Results 24hrs Laboratory Tests Test 12/30/18 17:43 12/30/18 20:20 12/31/18 05:39 12/31/18 08:03 Bedside Glucose 100 125 113 White Blood Count 12.1 H Red Blood Count 4.22 L Hemoglobin 11.3 L Hematocrit 35.8 L Mean Corpuscular 84.8 Volume Mean Corpuscular 26.8 L Hemoglobin Mean Corpuscular 31.6 L Hemoglobin Concent Red Cell 12.9 Distribution Width Platelet Count 299 # Mean Platelet Volume 10.7 H Immature 0.600 H Granulocytes % Neutrophils % 62.5 Lymphocytes % 28.8 Monocytes % 5.0 Eosinophils % 2.4 Basophils % 0.7 Nucleated Red Blood 0.0 Cells % Immature 0.070 H Granulocytes # Neutrophils # 7.6 H Lymphocytes # 3.5 H Monocytes # 0.6 Eosinophils # 0.3 Basophils # 0.1 Nucleated Red Blood 0.0 Cells # Sodium Level 141 Potassium Level 3.9 Chloride Level 102 Carbon Dioxide Level 31 Anion Gap 8 Blood Urea Nitrogen 12 Creatinine 0.46 L Est Glomerular > 60 Filtrat Rate mL/min Glucose Level 121 Calcium Level 9.5 Test 12/31/18 12:12 Bedside Glucose 93 Medications Medication Current Medications IV Flush (NS 3 ml) 3 ml PER PROTOCOL IV ; Start 12/24/18 at 23:30 Ondansetron HCl (Zofran Inj) 4 mg Q6H PRN IV NAUSEA/VOMITING; Start 12/24/18 at 23:30 Acetaminophen (Tylenol Tab) 650 mg Q6H PRN PO .PAIN 1-3 OR TEMP Last administered on 12/30/18at 01:01; Admin Dose 650 MG; Start 12/24/18 at 23:30 Acetaminophen/ Hydrocodone Bitart ([place] (5/325)) 1 tab Q6H PRN PO .MOD PAIN 4- 6; Start 12/24/18 at 23:30 Docusate Sodium (Colace) 100 mg Q12H PRN PO .CONSTIPATION Last administered on 12/30/18 06:19; Admin Dose 100 MG; Start 12/24/18 at 23:30 Bisacodyl (Dulcolax) 5 mg DAILY PRN PO .CONSTIPATION; Start 12/24/18 at 23:30 Enoxaparin Sodium (Lovenox) 30 mg DAILY SC Last administered on 12/31/18 08:44; Admin Dose 30 MG; Start 12/25/18 at 09:00 Diagnostic Test (Pha) (Accu-Chek) 1 ea 02 XX Last administered on 12/28/18 02:05; Admin Dose 1 EA; Start 12/25/18 at 02:00 Insulin Aspart (Novolog Insulin Pen) NOVOLOG *MILD* ALGORITHM WITH MEALS BEDTIME SC Last administered on 12/29/18 17:21; Admin Dose 2 UNIT; Start 12/25/18 at 08:00 Sodium Hypochlorite (Dakin'S (Dilute )) 1 applic BID IRR Last administered on 12/28/18 08:09; Admin Dose 1 APPLIC; Start 12/25/18 at 21:00 Insulin Aspart (Novolog Insulin Pen) 10 unit WITH MEALS SC Last administered on 12/31/18 12:13; Admin Dose 10 UNIT; Start 12/26/18 at 11:30 Cholecalciferol (Vitamin D) 2,000 unit DAILY PO Last administered on 12/31/18 08:40; Admin Dose 2,000 UNIT; Start 12/26/18 at 13:00 Ceftriaxone Sodium 50 ml @ 100 mls/hr Q24H IVPB Last administered on 12/31/18 12:08; Admin Dose 100 MLS/HR; Start 12/27/18 at 12:00 Insulin Glargine (Lantus) 30 units DAILY@2000 SC Last administered on 12/30/18 20:22; Admin Dose 30 UNITS; Start 12/27/18 at 20:00 Lactobacillus Acidophilus/ Rhamnosus (Culturelle) 1 cap BID PO Last administered on 2/15/19at 08:40; Admin Dose 1 CAP; Start 12/27/18 at 21:00 Aspirin (Halfprin) 81 mg DAILY PO Last administered on 12/31/18at 08:40; Admin Dose 81 MG; Start 12/28/18 at 09:00 Miscellaneous Information 1 ea NOTE XX ; Start 12/27/18 at 18:30 Glucose (Glutose) 15 gm Q15M PRN PO DECREASED GLUCOSE; Start 12/27/18 at 18:30 Glucose (Glutose) 22.5 gm Q15M PRN PO DECREASED GLUCOSE; Start 12/27/18 at 18:30 Dextrose (D50w Syringe) 25 ml Q15M PRN IV DECREASED GLUCOSE; Start 12/27/18 at 18:30 Dextrose (D50w Syringe) 50 ml Q15M PRN IV DECREASED GLUCOSE; Start 12/27/18 at 18:30 Glucagon (Glucagen) 1 mg Q15M PRN IM DECREASED GLUCOSE; Start 12/27/18 at 18:30 Glucose (Glutose) 15 gm Q15M PRN BUCCAL DECREASED GLUCOSE; Start 12/27/18 at 18:30 Guaifenesin/ Dextromethorphan (Robitussin Dm Liquid Cup) 10 ml Q4H PRN PO COUGH; Start 12/27/18 at 19:30 Morphine Sulfate (morphine) 6 mg Q4H PRN PO SEVERE PAIN LEVEL 7-10; Start 12/27/18 at 23:30 Repaglinide (Prandin) 2 mg AC MEALS PO Last administered on 12/31/18at 12:12; Admin Dose 2 MG; Start 12/30/18 at 07:30 Neomycin/ Polymyxin/ Bacitracin (Neosporin Topical Oint) 1 applic DAILY TOP Last administered on 12/31/18at 08:40; Admin Dose 1 APPLIC; Start 12/31/18 at 09:00 LOUIE LANDIN MD Dec 31, 2018 15:48
[2018-12-31 20:21] VITALS: BP 141/74; PULSE 83; RESP 18
[2018-12-31] MEDS: INSULIN GLARGINE [LANTus] (100 UNITS/ML) SYG SC SCH (20:25)
[2019-01-01] MEDS: ACCU-CHEK XX SCH (01:58)
[2019-01-01 02:00] VITALS: BP 146/74; PULSE 82; RESP 17
[2019-01-01] MEDS: INSULIN ASPART [NOVOLOG] 3 ML PEN SC SCH ×7 (08:00→20:47)
[2019-01-01 08:21] VITALS: BP 126/67; PULSE 77; RESP 16
[2019-01-01] MEDS: LACTOBACILLUS RHAMNOSUS CAP PO SCH ×2 (08:23→20:45)
[2019-01-01] MEDS: ASPIRIN (EC) 81 MG TAB PO SCH (08:23)
[2019-01-01] MEDS: REPAGLINIDE 2 MG TAB PO SCH ×3 (08:23→17:20)
[2019-01-01] MEDS: CHOLECALCIFEROL 2,000 UNIT CAP PO SCH (08:24)
[2019-01-01] MEDS: NEOMYC/POLYMYX/BACIT 30 GM OINT TOP SCH ×3 (08:25→14:40)
[2019-01-01] MEDS: ENOXAPARIN 30 MG/0.3 ML SYG SC SCH (08:28)
[2019-01-01] MEDS: SODIUM HYPOCHLORITE (1/40) 1 APPLIC BTL IRR SCH ×2 (08:30→20:47)
[2019-01-01] MEDS: CEFTRIAXONE 2 GM/50 ML (PMX) 50 ML IVPB SCH (11:58)
--- NOTE | 2019-01-01 15:01 | CONS ---
Assessment/Plan Assessment/Plan Hospital Course (Demo Recall) ID PROGRESS NOTE CURRENT ABX: DAY # 7 => Ceftriaxone 24H INTERVAL SUMMARY * Clinically stable, no fevers - A/A/O -- pleasant mood/optimistic affect, family in room * Left foot wound vac in place MICRO/OTHER * Microbiology: Wound culture growing strep agalactiae urine culture growing BEAU * 12/28/18 wound cx: WOUND CULTURE Final Organism 1 STAPHYLOCOCCUS AUREUS QUANTITY 1+ Organism 2 STREP AGALACTIAE - (GROUP B) QUANTITY 1+ S AUREUS M.I.C. RX --------- --- CEFAZOLIN S CIPROFLOXACIN <=0.5 S CLINDAMYCIN <=0.25 S DOXYCYCLINE S ERYTHROMYCIN <=0.25 S LEVOFLOXACIN 0.25 S OXACILLIN 0.5 S PENICILLIN-G >=0.5 R RIFAMPIN <=0.5 S VANCOMYCIN <=0.5 S TRIMETHOPRIM/SULFAMETHOXAZOLE <=10 S S AGA(GR B Zone Size RX --------- --- * CEFOTAXIME S * CLINDAMYCIN I * ERYTHROMYCIN S * PENICILLIN S * * 12/25/17 WOUND CX: WOUND CULTURE Final Organism 1 STREP AGALACTIAE - (GROUP B) QUANTITY 3+ Organism 2 COAGULASE NEGATIVE STAPH QUANTITY SCANT GROWTH COAG NEG M.I.C. RX --------- --- CEFAZOLIN S CIPROFLOXACIN <=0.5 S CLINDAMYCIN <=0.25 S DOXYCYCLINE S ERYTHROMYCIN >=8 R LEVOFLOXACIN <=0.12 S OXACILLIN <=0.25 S PENICILLIN-G >=0.5 R RIFAMPIN <=0.5 S VANCOMYCIN <=0.5 S TRIMETHOPRIM/SULFAMETHOXAZOLE 160 R S AGA(GR B Zone Size RX --------- --- * CEFOTAXIME S * CLINDAMYCIN I * ERYTHROMYCIN I * PENICILLIN S * 12/24/18 URINE CX URINE CULTURE Final Organism 1 STAPHYLOCOCCUS AUREUS COLONY COUNT >100,000 CFU/ml S AUREUS M.I.C. RX --------- --- CEFAZOLIN S CIPROFLOXACIN <=0.5 S DOXYCYCLINE S LEVOFLOXACIN 0.25 S OXACILLIN 0.5 S PENICILLIN-G >=0.5 R RIFAMPIN <=0.5 S VANCOMYCIN <=0.5 S TRIMETHOPRIM/SULFAMETHOXAZOLE <=10 S * 12/24/18 BCx (-) PHYSICAL EXAMINATION: GENERAL: Afebrile, VSS, obese HEENT: AT, NC, anicteric NECK: Supple, trach midline CHEST: Equal chest rise bilaterally, without dyspnea on observation HEART: Pulse RRR ABDOMEN: Soft / NT EXTREMITIES: Warm, dry - Left foot dressing intact left lower extremity edematous with slight erythema SKIN: No rash, no diaphoresis ID ASSESSMENT 43 yo M admit with: 1. Resolving sepsis, present on admission 2. 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 Poorly controlled diabetes 4. Obesity 5. Peripheral vascular and arterial disease 6. UTI (-)MRSA Nares ABX ALLERGIES: KNDA INVASIVES: PIV CURRENT ABX: DAY #7 => Ceftriaxone ID RECOMMENDATIONS/PLAN: 1. Continue current ABX -- per ID colleague note anticipate 4-6 weeks total co urse - treat until infection resolved . Consultation Date/Type/Reason Admit Date/Time Dec 24, 2018 at 21:20 Initial Consult Date Date/Time of Note DATE: 01/01/19 TIME: 15:01 Exam/Review of Systems Exam Vitals Vital Signs Date Temp Pulse Resp B/P (MAP) Pulse Ox O2 O2 Flow FiO2 Time Delivery Rate 01/01/19 98.5 77 16 126/67 94 Room Air 08:21 (86) 12/28/18 3.0 14:11 Intake and Output 12/31/18 12/31/18 01/01/19 1515:00 23:00 07:00 IntakeIntake Total 770 ml 100 ml 300 ml OutputOutput Total 10 ml 5 ml BalanceBalance 770 ml 90 ml 295 ml Results Result Diagram: 12/31/18 0539 12/31/18 0539 Results 24hrs Laboratory Tests Test 12/31/18 17:28 12/31/18 20:23 01/01/19 07:54 01/01/19 11:47 Bedside Glucose 98 88 91 77 Medications Medication Current Medications IV Flush (NS 3 ml) 3 ml PER PROTOCOL IV ; Start 12/24/18 at 23:30 Ondansetron HCl (Zofran Inj) 4 mg Q6H PRN IV NAUSEA/VOMITING; Start 12/24/18 at 23:30 Acetaminophen (Tylenol Tab) 650 mg Q6H PRN PO .PAIN 1-3 OR TEMP Last adm inistered on 12/30/18 01:01; Admin Dose 650 MG; Start 12/24/18 at 23:30 Acetaminophen/ Hydrocodone Bitart ([place] (5/325)) 1 tab Q6H PRN PO .MOD PAIN 4- 6; Start 12/24/18 at 23:30 Docusate Sodium (Colace) 100 mg Q12H PRN PO .CONSTIPATION Last administered on 12/30/18 06:19; Admin Dose 100 MG; Start 12/24/18 at 23:30 Bisacodyl (Dulcolax) 5 mg DAILY PRN PO .CONSTIPATION; Start 12/24/18 at 23:30 Enoxaparin Sodium (Lovenox) 30 mg DAILY SC Last administered on 01/01/19 08:28; Admin Dose 30 MG; Start 12/25/18 at 09:00 Diagnostic Test (Pha) (Accu-Chek) 1 ea 02 XX Last administered on 12/28/18 02:05; Admin Dose 1 EA; Start 12/25/18 at 02:00 Insulin Aspart (Novolog Insulin Pen) NOVOLOG *MILD* ALGORITHM WITH MEALS BEDTIME SC Last administered on 12/29/18 17:21; Admin Dose 2 UNIT; Start 12/25/18 at 08:00 Sodium Hypochlorite (Dakin'S (Dilute 1/40)) 1 applic BID IRR Last administered on 12/28/18 08:09; Admin Dose 1 APPLIC; Start 12/25/18 at 21:00 Insulin Aspart (Novolog Insulin Pen) 10 unit WITH MEALS SC Last administered on 01/01/19 11:59; Admin Dose 10 UNIT; Start 12/26/18 at 11:30 Cholecalciferol (Vitamin D) 2,000 unit DAILY PO Last administered on 01/01/19 08:24; Admin Dose 2,000 UNIT; Start 12/26/18 at 13:00 Ceftriaxone Sodium 50 ml @ 100 mls/hr Q24H IVPB Last administered on 01/01/19 11:58; Admin Dose 100 MLS/HR; Start 12/27/18 at 12:00 Insulin Glargine (Lantus) 30 units DAILY@2000 SC Last administered on 12/31/18at 20:25; Admin Dose 30 UNITS; Start 12/27/18 at 20:00 Lactobacillus Acidophilus/ Rhamnosus (Culturelle) 1 cap BID PO Last administered on 01/01/19at 08:23; Admin Dose 1 CAP; Start 12/27/18 at 21:00 Aspirin (Halfprin) 81 mg DAILY PO Last administered on 01/01/19at 08:23; Admin Dose 81 MG; Start 12/28/18 at 09:00 Miscellaneous Information 1 ea NOTE XX ; Start 12/27/18 at 18:30 Glucose (Glutose) 15 gm Q15M PRN PO DECREASED GLUCOSE; Start 12/27/18 at 18:30 Glucose (Glutose) 22.5 gm Q15M PRN PO DECREASED GLUCOSE; Start 12/27/18 at 18:30 Dextrose (D50w Syringe) 25 ml Q15M PRN IV DECREASED GLUCOSE; Start 12/27/18 at 18:30 Dextrose (D50w Syringe) 50 ml Q15M PRN IV DECREASED GLUCOSE; Start 12/27/18 at 18:30 Glucagon (Glucagen) 1 mg Q15M PRN IM DECREASED GLUCOSE; Start 12/27/18 at 18:30 Glucose (Glutose) 15 gm Q15M PRN BUCCAL DECREASED GLUCOSE; Start 12/27/18 at 18:30 Guaifenesin/ Dextromethorphan (Robitussin Dm Liquid Cup) 10 ml Q4H PRN PO COUGH ; Start 12/27/18 at 19:30 Morphine Sulfate (morphine) 6 mg Q4H PRN PO SEVERE PAIN LEVEL 7-10; Start 12/27/18 at 23:30 Repaglinide (Prandin) 2 mg AC MEALS PO Last administered on 01/01/19at 11:57; Admin Dose 2 MG; Start 12/30/18 at 07:30 Neomycin/ Polymyxin/ Bacitracin (Neosporin Topical Oint) 1 applic DAILY TOP Last administered on 12/31/18at 08:40; Admin Dose 1 APPLIC; Start 12/31/18 at 09:00 MARYANN FABIAN NP Jan 01, 2019 15:01
[2019-01-01 15:05] VITALS: BP 128/77; PULSE 85; RESP 17
--- NOTE | 2019-01-01 17:50 | PN ---
Date/Time of Note Date/Time of Note DATE: 01/01/19 TIME: 17:49 Assessment/Plan VTE Prophylaxis Risk score (from Nsg)>0 risk: 2 SCD applied (from Nsg): Yes SCD contraindicated: low risk/ambulating Pharmacological prophylaxis: LMWH Lines/Catheters IV Catheter Type (from Nrsg): PICC Line Central line still needed: Yes Urinary Cath still in place: No Assessment/Plan Hospital Course A/P 1 Lt foot OM/ abscess, sp I&D; sp 5th Ray Amp; stable cont atb/ Vac/ wound care/ picc/ iv atb's. home when Vac has been arranged. 2 Gangrene 5th toe; sp 5th Ray Amp 3 Dm II ooc; insulin training 4. PAD? added asa; angio as needed. 5 Anemia 6 Cough S: 12/27 nonproductive cough 12/28 no events overnight. Patient in OR 12/29: events noted; in good spirits 12/30: No events no fever diarrhea 12/31: no events; awaiting picc 01/01: no events O: vss PE no pallor reg s1s2 ;no mrg ctab bs+ nt; nd; no r r g lt foot c/d/i; vac in place. picc c/d/i Result Diagram: 12/31/18 0539 12/31/1839 Results 24hrs Laboratory Tests Test 12/31/18 20:23 01/01/19 07:54 01/01/19 11:47 01/01/19 17:16 Bedside Glucose 88 91 77 80 Exam/Review of Systems Exam Vitals Vital Signs Date Temp Pulse Resp B/P (MAP) Pulse Ox O2 O2 Flow FiO2 Time Delivery Rate 01/01/19 98.2 85 17 128/77 97 Room Air 15:05 (94) 12/28/18 3.0 14:11 Intake and Output 12/31/18 12/31/18 01/01/19 1515:00 23:00 07:00 IntakeIntake Total 770 ml 100 ml 300 ml OutputOutput Total 10 ml 5 ml BalanceBalance 770 ml 90 ml 295 ml Results Results 24hrs Laboratory Tests Test 12/31/18 20:23 01/01/19 07:54 01/01/19 11:47 01/01/19 17:16 Bedside Glucose 88 91 77 80 Medications Medication Current Medications IV Flush (NS 3 ml) 3 ml PER PROTOCOL IV ; Start 12/24/18 at 23:30 Ondansetron HCl (Zofran Inj) 4 mg Q6H PRN IV NAUSEA/VOMITING; Start 12/24/18 at 23:30 Acetaminophen (Tylenol Tab) 650 mg Q6H PRN PO .PAIN 1-3 OR TEMP Last administered on 12/30/18 01:01; Admin Dose 650 MG; Start 12/24/18 at 23:30 Acetaminophen/ Hydrocodone Bitart ([place] (5/325)) 1 tab Q6H PRN PO .MOD PAIN 4- 6; Start 12/24/18 at 23:30 Docusate Sodium (Colace) 100 mg Q12H PRN PO .CONSTIPATION Last administered on 12/30/18 06:19; Admin Dose 100 MG; Start 12/24/18 at 23:30 Bisacodyl (Dulcolax) 5 mg DAILY PRN PO .CONSTIPATION; Start 12/24/18 at 23:30 Enoxaparin Sodium (Lovenox) 30 mg DAILY SC Last administered on 01/01/19 08:28; Admin Dose 30 MG; Start 12/25/18 at 09:00 Diagnostic Test (Pha) (Accu-Chek) 1 ea 02 XX Last administered on 12/28/18 02:05; Admin Dose 1 EA; Start 12/25/18 at 02:00 Insulin Aspart (Novolog Insulin Pen) NOVOLOG *MILD* ALGORITHM WITH MEALS BE DTIME SC Last administered on 12/29/18 17:21; Admin Dose 2 UNIT; Start 12/25/18 at 08:00 Sodium Hypochlorite (Dakin'S (Dilute 1/40)) 1 applic BID IRR Last administered on 12/28/18 08:09; Admin Dose 1 APPLIC; Start 12/25/18 at 21:00 Insulin Aspart (Novolog Insulin Pen) 10 unit WITH MEALS SC Last administered on 01/01/19 17:20; Admin Dose 10 UNIT; Start 12/26/18 at 11:30 Cholecalciferol (Vitamin D) 2,000 unit DAILY PO Last administered on 01/01/19 08:24; Admin Dose 2,000 UNIT; Start 12/26/18 at 13:00 Ceftriaxone Sodium 50 ml @ 100 mls/hr Q24H IVPB Last administered on 01/01/19at 11:58; Admin Dose 100 MLS/HR; Start 12/27/18 at 12:00 Insulin Glargine (Lantus) 30 units DAILY@2000 SC Last administered on 12/31/18at 20:25; Admin Dose 30 UNITS; Start 12/27/18 at 20:00 Lactobacillus Acidophilus/ Rhamnosus (Culturelle) 1 cap BID PO Last administered on 01/01/19at 08:23; Admin Dose 1 CAP; Start 12/27/18 at 21:00 Aspirin (Halfprin) 81 mg DAILY PO Last administered on 01/01/19at 08:23; Admin Dose 81 MG; Start 12/28/18 at 09:00 Miscellaneous Information 1 ea NOTE XX ; Start 12/27/18 at 18:30 Glucose (Glutose) 15 gm Q15M PRN PO DECREASED GLUCOSE; Start 12/27/18 at 18:30 Glucose (Glutose) 22.5 gm Q15M PRN PO DECREASED GLUCOSE; Start 12/27/18 at 18:30 Dextrose (D50w Syringe) 25 ml Q15M PRN IV DECREASED GLUCOSE; Start 12/27/18 at 18:30 Dextrose (D50w Syringe) 50 ml Q15M PRN IV DECREASED GLUCOSE; Start 12/27/18 at 18:30 Glucagon (Glucagen) 1 mg Q15M PRN IM DECREASED GLUCOSE; Start 12/27/18 at 18:30 Glucose (Glutose) 15 gm Q15M PRN BUCCAL DECREASED GLUCOSE; Start 12/27/18 at 18:30 Guaifenesin/ Dextromethorphan (Robitussin Dm Liquid Cup) 10 ml Q4H PRN PO COUGH; Start 12/27/18 at 19:30 Morphine Sulfate (morphine) 6 mg Q4H PRN PO SEVERE PAIN LEVEL 7-10; Start 12/27/18 at 23:30 Repaglinide (Prandin) 2 mg AC MEALS PO Last administered on 01/01/19at 17:20; Admin Dose 2 MG; Start 12/30/18 at 07:30 Neomycin/ Polymyxin/ Bacitracin (Neosporin Topical Oint) 1 applic DAILY TOP [place] [facility] administered on 01/01/19at 14:40; Admin Dose 1 APPLIC; Start 2/15/19 at 09:00 LOUIE LANDIN MD Jan 01, 2019 17:50
[2019-01-01 20:00] VITALS: BP 127/73; PULSE 86; RESP 18
[2019-01-01] MEDS: INSULIN GLARGINE [LANTus] (100 UNITS/ML) SYG SC SCH (20:46)
[2019-01-02 02:00] VITALS: BP 137/72; PULSE 79; RESP 18
[2019-01-02] MEDS: ACCU-CHEK XX SCH (02:00)
[2019-01-02] MEDS: INSULIN ASPART [NOVOLOG] 3 ML PEN SC SCH ×7 (08:00→21:00)
[2019-01-02] MEDS: ENOXAPARIN 30 MG/0.3 ML SYG SC SCH (08:24)
[2019-01-02] MEDS: LACTOBACILLUS RHAMNOSUS CAP PO SCH ×2 (08:24→21:00)
[2019-01-02] MEDS: CHOLECALCIFEROL 2,000 UNIT CAP PO SCH (08:25)
[2019-01-02] MEDS: REPAGLINIDE 2 MG TAB PO SCH ×3 (08:25→17:38)
[2019-01-02] MEDS: ASPIRIN (EC) 81 MG TAB PO SCH (08:25)
[2019-01-02] MEDS: SODIUM HYPOCHLORITE (1/40) 1 APPLIC BTL IRR SCH ×2 (08:25→21:00)
[2019-01-02] MEDS: NEOMYC/POLYMYX/BACIT 30 GM OINT TOP SCH (08:26)
[2019-01-02 08:28] VITALS: BP 131/69; PULSE 74; RESP 18
[2019-01-02] MEDS: CEFTRIAXONE 2 GM/50 ML (PMX) 50 ML IVPB SCH (12:34)
--- NOTE | 2019-01-02 16:19 | CONS ---
Assessment/Plan Assessment/Plan Hospital Course (Demo Recall) ID PROGRESS NOTE CURRENT ABX: DAY # 8 => Ceftriaxone 12/31/18 0539 12/31/18 0539 24H INTERVAL SUMMARY * DC planning in process --- pending arrangement of wound Vac = Left foot wound vac in place * No new issues, no new events, no complaints * Remains Clinically stable, no fevers - A/A/O -- pleasant mood/optimistic affect, family in room * Labs above from 12/31/18 MICRO/OTHER * Microbiology: Wound culture growing strep agalactiae urine culture growing BEAU * 12/28/18 wound cx: WOUND CULTURE Final Organism 1 STAPHYLOCOCCUS AUREUS QUANTITY 1+ Organism 2 STREP AGALACTIAE - (GROUP B) QUANTITY 1+ S AUREUS M.I.C. RX --------- --- CEFAZOLIN S CIPROFLOXACIN <=0.5 S CLINDAMYCIN <=0.25 S DOXYCYCLINE S ERYTHROMYCIN <=0.25 S LEVOFLOXACIN 0.25 S OXACILLIN 0.5 S PENICILLIN-G >=0.5 R RIFAMPIN <=0.5 S VANCOMYCIN <=0.5 S TRIMETHOPRIM/SULFAMETHOXAZOLE <=10 S S AGA(GR B Zone Size RX --------- --- * CEFOTAXIME S * CLINDAMYCIN I * ERYTHROMYCIN S * PENICILLIN S * * 12/25/17 WOUND CX: WOUND CULTURE Final Organism 1 STREP AGALACTIAE - (GROUP B) QUANTITY 3+ Organism 2 COAGULASE NEGATIVE STAPH QUANTITY SCANT GROWTH COAG NEG M.I.C. RX --------- --- CEFAZOLIN S CIPROFLOXACIN <=0.5 S CLINDAMYCIN <=0.25 S DOXYCYCLINE S ERYTHROMYCIN >=8 R LEVOFLOXACIN <=0.12 S OXACILLIN <=0.25 S PENICILLIN-G >=0.5 R RIFAMPIN <=0.5 S VANCOMYCIN <=0.5 S TRIMETHOPRIM/SULFAMETHOXAZOLE 160 R S AGA(GR B Zone Size RX --------- --- * CEFOTAXIME S * CLINDAMYCIN I * ERYTHROMYCIN I * PENICILLIN S * 12/24/18 URINE CX URINE CULTURE Final Organism 1 STAPHYLOCOCCUS AUREUS COLONY COUNT >100,000 CFU/ml S AUREUS M.I.C. RX --------- --- CEFAZOLIN S CIPROFLOXACIN <=0.5 S DOXYCYCLINE S LEVOFLOXACIN 0.25 S OXACILLIN 0.5 S PENICILLIN-G >=0.5 R RIFAMPIN <=0.5 S VANCOMYCIN <=0.5 S TRIMETHOPRIM/SULFAMETHOXAZOLE <=10 S * 12/24/18 BCx (-) PHYSICAL EXAMINATION: GENERAL: Afebrile, VSS, obese HEENT: AT, NC, anicteric NECK: Supple, trach midline CHEST: Equal chest rise bilaterally, without dyspnea on observation HEART: Pulse RRR ABDOMEN: Soft / NT EXTREMITIES: Warm, dry - Left foot dressing intact left lower extremity edematous with slight erythema SKIN: No rash, no diaphoresis ID ASSESSMENT 43 yo M admit with: 1. Resolving sepsis, present on admission 2. 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 Poorly controlled diabetes 4. Obesity 5. Peripheral vascular and arterial disease 6. UTI (-)MRSA Nares ABX ALLERGIES: KNDA INVASIVES: PIV CURRENT ABX: DAY #8 => Ceftriaxone ID RECOMMENDATIONS/PLAN: 1. Continue current ABX -- per ID colleague note anticipate 4-6 weeks total course - treat until infection resolved . Consultation Date/Type/Reason Admit Date/Time Dec 24, 2018 at 21:20 Initial Consult Date Date/Time of Note DATE: 01/02/19 TIME: 16:16 Exam/Review of Systems Exam Vitals Vital Signs Date Temp Pulse Resp B/P (MAP) Pulse Ox O2 O2 Flow FiO2 Time Delivery Rate 01/02/19 98.0 74 18 131/69 97 Room Air 08:28 (89) Intake and Output 01/01/19 01/01/19 01/02/19 1414:59 22:59 06:59 IntakeIntake Total 1210 ml 120 ml OutputOutput Total 3 ml BalanceBalance 1210 ml 117 ml Results Result Diagram: 12/31/18 0539 12/31/18 0539 Results 24hrs Laboratory Tests Test 01/01/19 17:16 01/01/19 20:25 01/02/19 07:47 01/02/19 11:57 Bedside Glucose 80 118 90 124 Medications Medication Current Medications IV Flush (NS 3 ml) 3 ml PER PROTOCOL IV ; Start 2/8/19 at 23:30 Ondansetron HCl (Zofran Inj) 4 mg Q6H PRN IV NAUSEA/VOMITING; Start 12/24/18 at 23:30 Acetaminophen (Tylenol Tab) 650 mg Q6H PRN PO .PAIN 1-3 OR TEMP Last administered on 12/30/18 01:01; Admin Dose 650 MG; Start 12/24/18 at 23:30 Acetaminophen/ Hydrocodone Bitart ([place] (5/325)) 1 tab Q6H PRN PO .MOD PAIN 4- 6; Start 12/24/18 at 23:30 Docusate Sodium (Colace) 100 mg Q12H PRN PO .CONSTIPATION Last administered on 12/30/18 06:19; Admin Dose 100 MG; Start 12/24/18 at 23:30 Bisacodyl (Dulcolax) 5 mg DAILY PRN PO .CONSTIPATION; Start 12/24/18 at 23:30 Enoxaparin Sodium (Lovenox) 30 mg DAILY SC Last administered on 01/02/19 08:24; Admin Dose 30 MG; Start 12/25/18 at 09:00 Diagnostic Test (Pha) (Accu-Chek) 1 ea 02 XX Last administered on 12/28/18 02:05; Admin Dose 1 EA; Start 12/25/18 at 02:00 Insulin Aspart (Novolog Insulin Pen) NOVOLOG *MILD* ALGORITHM WITH MEALS BEDTIME SC Last administered on 12/29/18 17:21; Admin Dose 2 UNIT; Start 12/25/18 at 08:00 Sodium Hypochlorite (Dakin'S (Dilute 40)) 1 applic BID IRR Last administered on 01/02/19 08:25; Admin Dose 1 APPLIC; Start 12/25/18 at 21:00 Insulin Aspart (Novolog Insulin Pen) 10 unit WITH MEALS SC Last administered on 01/02/19 12:31; Admin Dose 10 UNIT; Start 12/26/18 at 11:30 Cholecalciferol (Vitamin D) 2,000 unit DAILY PO Last administered on 01/02/19 08:25; Admin Dose 2,000 UNIT; Start 12/26/18 at 13:00 Ceftriaxone Sodium 50 ml @ 100 mls/hr Q24H IVPB Last administered on 2/17/19at 12:34; Admin Dose 100 MLS/HR; Start 12/27/18 at 12:00 Insulin Glargine (Lantus) 30 units DAILY@2000 SC Last administered on 01/01/19at 20:46; Admin Dose 30 UNITS; Start 12/27/18 at 20:00 Lactobacillus Acidophilus/ Rhamnosus (Culturelle) 1 cap BID PO Last administered on 01/02/19 08:24; Admin Dose 1 CAP; Start 12/27/18 at 21:00 Aspirin (Halfprin) 81 mg DAILY PO Last administered on 01/02/19 08:25; Admin Dose 81 MG; Start 12/28/18 at 09:00 Miscellaneous Information 1 ea NOTE XX ; Start 12/27/18 at 18:30 Glucose (Glutose) 15 gm Q15M PRN PO DECREASED GLUCOSE; Start 12/27/18 at 18:30 Glucose (Glutose) 22.5 gm Q15M PRN PO DECREASED GLUCOSE; Start 12/27/18 at 18:3 0 Dextrose (D50w Syringe) 25 ml Q15M PRN IV DECREASED GLUCOSE; Start 12/27/18 at 18:30 Dextrose (D50w Syringe) 50 ml Q15M PRN IV DECREASED GLUCOSE; Start 12/27/18 at 18:30 Glucagon (Glucagen) 1 mg Q15M PRN IM DECREASED GLUCOSE; Start 12/27/18 at 18:30 Glucose (Glutose) 15 gm Q15M PRN BUCCAL DECREASED GLUCOSE; Start 12/27/18 at 18:30 Guaifenesin/ Dextromethorphan (Robitussin Dm Liquid Cup) 10 ml Q4H PRN PO COUGH; Start 12/27/18 at 19:30 Morphine Sulfate (morphine) 6 mg Q4H PRN PO SEVERE PAIN LEVEL 7-10; Start 12/27/18 at 23:30 Repaglinide (Prandin) 2 mg AC MEALS PO Last administered on 01/02/19 12:29; Admin Dose 2 MG; Start 12/30/18 at 07:30 Neomycin/ Polymyxin/ Bacitracin (Neosporin Topical Oint) 1 applic DAILY TOP Last administered on 01/02/19 08:26; Admin Dose 1 APPLIC; Start 12/31/18 at 09:00 MARYANN FABIAN NP Jan 02, 2019 16:19
--- NOTE | 2019-01-02 16:54 | PN ---
Date/Time of Note Date/Time of Note DATE: 01/02/19 TIME: 16:53 Assessment/Plan VTE Prophylaxis Risk score (from Nsg)>0 risk: 3 SCD applied (from Nsg): Yes SCD contraindicated: low risk/ambulating Pharmacological prophylaxis: LMWH Lines/Catheters IV Catheter Type (from Nrsg): PICC Line Central line still needed: Yes Urinary Cath still in place: No Assessment/Plan Hospital Course A/P 1 Lt foot OM/ abscess, sp I&D; sp 5th Ray Amp; stable cont atb/ Vac/ wound care/ picc/ iv atb's. home when Vac has been arranged. 2 Gangrene 5th toe; sp 5th Ray Amp 3 Dm II ooc; insulin training 4. PAD? added asa; angio as needed. 5 Anemia 6 Cough S: 12/27 nonproductive cough 12/28 no events overnight. Patient in OR 12/29: events noted; in good spirits 12/30: No events no fever diarrhea 12/31: no events; awaiting picc 01/01: no events 01/02: No events awaiting back. No fever diarrhea O: vss PE no pallor reg s1s2 ;no mrg ctab bs+ nt; nd; no r r g lt foot c/d/i; vac in place. picc c/d/i Result Diagram: 12/31/18 0539 12/31/1839 Results 24hrs Laboratory Tests Test 01/01/19 17:16 01/01/19 20:25 01/02/19 07:47 01/02/19 11:57 Bedside Glucose 80 118 90 124 Exam/Review of Systems Exam Vitals Vital Signs Date Temp Pulse Resp B/P (MAP) Pulse Ox O2 O2 Flow FiO2 Time Delivery Rate 01/02/19 98.0 74 18 131/69 97 Room Air 08:28 (89) Intake and Output 01/01/19 01/01/19 01/02/19 1515:00 23:00 07:00 IntakeIntake Total 1210 ml 120 ml OutputOutput Total 3 ml BalanceBalance 1210 ml 117 ml Results Results 24hrs Laboratory Tests Test 01/01/19 17:16 01/01/19 20:25 01/02/19 07:47 01/02/19 11:57 Bedside Glucose 80 118 90 124 Medications Medication Current Medications IV Flush (NS 3 ml) 3 ml PER PROTOCOL IV ; Start 12/24/18 at 23:30 Ondansetron HCl (Zofran Inj) 4 mg Q6H PRN IV NAUSEA/VOMITING; Start 12/24/18 at 23:30 Acetaminophen (Tylenol Tab) 650 mg Q6H PRN PO .PAIN 1-3 OR TEMP Last adminis tered on 12/30/18 01:01; Admin Dose 650 MG; Start 12/24/18 at 23:30 Acetaminophen/ Hydrocodone Bitart ([place] (5/325)) 1 tab Q6H PRN PO .MOD PAIN 4- 6; Start 12/24/18 at 23:30 Docusate Sodium (Colace) 100 mg Q12H PRN PO .CONSTIPATION Last administered on 12/30/18 06:19; Admin Dose 100 MG; Start 12/24/18 at 23:30 Bisacodyl (Dulcolax) 5 mg DAILY PRN PO .CONSTIPATION; Start 12/24/18 at 23:30 Enoxaparin Sodium (Lovenox) 30 mg DAILY SC Last administered on 01/02/19 08:24; Admin Dose 30 MG; Start 12/25/18 at 09:00 Diagnostic Test (Pha) (Accu-Chek) 1 ea 02 XX Last administered on 12/28/18 02:05; Admin Dose 1 EA; Start 12/25/18 at 02:00 Insulin Aspart (Novolog Insulin Pen) NOVOLOG *MILD* ALGORITHM WITH MEALS BEDTIME SC Last administered on 12/29/18 17:21; Admin Dose 2 UNIT; Start 12/25/18 at 08:00 Sodium Hypochlorite (Dakin'S (Dilute 1/40)) 1 applic BID IRR Last administered on 01/02/19 08:25; Admin Dose 1 APPLIC; Start 12/25/18 at 21:00 Insulin Aspart (Novolog Insulin Pen) 10 unit WITH MEALS SC Last administered on 01/02/19 12:31; Admin Dose 10 UNIT; Start 12/26/18 at 11:30 Cholecalciferol (Vitamin D) 2,000 unit DAILY PO Last administered on 01/02/19 08:25; Admin Dose 2,000 UNIT; Start 12/26/18 at 13:00 Ceftriaxone Sodium 50 ml @ 100 mls/hr Q24H IVPB Last administered on 01/02/19at 12:34; Admin Dose 100 MLS/HR; Start 12/27/18 at 12:00 Insulin Glargine (Lantus) 30 units DAILY@2000 SC Last administered on 01/01/19at 20:46; Admin Dose 30 UNITS; Start 12/27/18 at 20:00 Lactobacillus Acidophilus/ Rhamnosus (Culturelle) 1 cap BID PO Last administered on 01/02/19at 08:24; Admin Dose 1 CAP; Start 12/27/18 at 21:00 Aspirin (Halfprin) 81 mg DAILY PO Last administered on 01/02/19at 08:25; Admin Dose 81 MG; Start 12/28/18 at 09:00 Miscellaneous Information 1 ea NOTE XX ; Start 12/27/18 at 18:30 Glucose (Glutose) 15 gm Q15M PRN PO DECREASED GLUCOSE; Start 12/27/18 at 18:30 Glucose (Glutose) 22.5 gm Q15M PRN PO DECREASED GLUCOSE; Start 12/27/18 at 18:30 Dextrose (D50w Syringe) 25 ml Q15M PRN IV DECREASED GLUCOSE; Start 12/27/18 at 18:30 Dextrose (D50w Syringe) 50 ml Q15M PRN IV DECREASED GLUCOSE; Start 12/27/18 at 18:30 Glucagon (Glucagen) 1 mg Q15M PRN IM DECREASED GLUCOSE; Start 12/27/18 at 18:30 Glucose (Glutose) 15 gm Q15M PRN BUCCAL DECREASED GLUCOSE; Start 12/27/18 at 18:30 Guaifenesin/ Dextromethorphan (Robitussin Dm Liquid Cup) 10 ml Q4H PRN PO COUGH; Start 12/27/18 at 19:30 Morphine Sulfate (morphine) 6 mg Q4H PRN PO SEVERE PAIN LEVEL 7-10; Start 10/04 at 23:30 Repaglinide (Prandin) 2 mg AC MEALS PO Last administered on 01/02/19at 12:29; Admin Dose 2 MG; Start 12/30/18 at 07:30 Neomycin/ Polymyxin/ Bacitracin (Neosporin Topical Oint) 1 applic DAILY TOP Last administered on 01/02/19at 08:26; Admin Dose 1 APPLIC; Start 12/31/18 at 09:00 LOUIE LANDIN MD Jan 02, 2019 16:54
[2019-01-02 20:00] VITALS: BP 136/76; PULSE 84; RESP 17
[2019-01-02] MEDS: INSULIN GLARGINE [LANTus] (100 UNITS/ML) SYG SC SCH (21:04)
[2019-01-03 02:00] VITALS: BP_SYST 134; BP_SYST 151; BP_DIAS 73; BP_DIAS 74; PULSE 83; PULSE 90; RESP 17; RESP 18
[2019-01-03] MEDS: ACCU-CHEK XX SCH (02:07)
[2019-01-03] MEDS: REPAGLINIDE 2 MG TAB PO SCH ×3 (07:58→17:13)
[2019-01-03] MEDS: INSULIN ASPART [NOVOLOG] 3 ML PEN SC SCH ×7 (07:59→21:00)
[2019-01-03] MEDS: ENOXAPARIN 30 MG/0.3 ML SYG SC SCH (08:00)
[2019-01-03] MEDS: LACTOBACILLUS RHAMNOSUS CAP PO SCH ×2 (08:00→21:39)
[2019-01-03] MEDS: CHOLECALCIFEROL 2,000 UNIT CAP PO SCH (08:00)
[2019-01-03] MEDS: ASPIRIN (EC) 81 MG TAB PO SCH (08:00)
[2019-01-03] MEDS: NEOMYC/POLYMYX/BACIT 30 GM OINT TOP SCH (08:01)
[2019-01-03] MEDS: SODIUM HYPOCHLORITE (1/40) 1 APPLIC BTL IRR SCH ×2 (08:02→21:00)
[2019-01-03 08:14] VITALS: BP 117/67; PULSE 78; RESP 18
[2019-01-03] MEDS: CEFTRIAXONE 2 GM/50 ML (PMX) 50 ML IVPB SCH (11:50)
--- NOTE | 2019-01-03 12:04 | PN ---
Date/Time of Note Date/Time of Note DATE: 01/03/19 TIME: 12:03 Assessment/Plan VTE Prophylaxis Risk score (from Nsg)>0 risk: 7 SCD applied (from Nsg): Yes Pharmacological prophylaxis: LMWH Lines/Catheters IV Catheter Type (from Nrsg): PICC Line Central line still needed: Yes Urinary Cath still in place: No Assessment/Plan Hospital Course SUBJECTIVE: Denies any significant left lower extremity pain. OBJECTIVE: Physical Exam General: Obese, 43 year-old male lying in bed in no apparent distress. HEENT: Normocephalic, atraumatic. Eyes: Anicteric sclerae, conjunctivae clear. ENT: Nasal septum midline, oral mucosa moist. Neck: Short with increased neck circumference. Respiratory: Bilaterally diminished breath sounds. No use of accessory muscles of respiration. No adventitious breath sounds. Cardiovascular: S1, S2 heard. Regular rate and rhythm. Abdomen: Soft, nontender, and nondistended. Bowel sounds positive in all 4 quadrants. Genitourinary: Deferred. Extremities: No cyanosis, no clubbing. Left foot dressing and wound vac. Neurologic: Cranial nerves II through XII grossly intact. The patient is awake, alert, and oriented. Labs & Vitals per chart ASSESSMENT & PLAN 43-year-old male with comorbidities including obesity, diabetes mellitus type 2, and neuropathy who came to the emergency room with chief complaint of left foot wound that has been going on for the past 3 weeks. As per the patient he had a fluid-filled cyst on the plantar surface of his foot that he drained himself and tried putting topical antibiotics. He denied any fevers or chills. In the emergency room, the patient was noticed to have evidence of sepsis with leukocytosis, febrile illness, and tachycardia. The patient was admitted to inpatient setting for further treatment and evaluation. 1. Sepsis with leukocytosis, febrile illness, and tachycardia present on admission secondary to underlying left foot infection and underlying urinary tract infection. -Continue empiric antimicrobials -Infectious diseases consult. 2. Infected left foot diabetic ulcer. -Podiatry following . -Local wound care as per podiatry. -Continue antimicrobials. 3. Left foot osteomyelitis: left foot gangrene. -S/P partial fifth ray resection, application of skin allograft, and application of wound vac on 12/28/2018 4. Urinary tract infection. -Continue antimicrobials as per ID. 5. Diabetes mellitus type 2. -Uncontrolled. -Hemoglobin A1c 12.7. -Continue sliding scale insulin along with pre-meal insulin and basal insulin. -Diabetes education consult. 6. Anemia. -Microcytic and hypochromic -Monitor H&H closely. 7. Obesity. -BMI more than 33.5 kg/m. -Advised weight reduction. -Dietary consult. 8. Vitamin D deficiency. -Continue supplements. 9. Fluids, electrolytes, and nutrition. -Carbohydrate controlled diet. 10. DVT prophylaxis. -Subcutaneous Lovenox. 11. Plan. -Continue antimicrobials as per ID. -S/P PICC insertion. -Awaiting wound vac to be arranged before discharge. The patient was seen in collaboration with Dr. Varela. Result Diagram: 12/31/1853812/31/18538 Results 24hrs Laboratory Tests Test 01/02/19 17:21 01/02/19 20:54 01/03/19 07:55 Bedside Glucose 152 128 128 Exam/Review of Systems Exam Vitals Vital Signs Date Temp Pulse Resp B/P (MAP) Pulse Ox O2 O2 Flow FiO2 Time Delivery Rate 01/03/19 98.0 78 18 117/67 96 Room Air 08:14 (84) Intake and Output 01/02/19 01/02/19 01/03/19 1515:00 23:00 07:00 IntakeIntake Total 50 ml 240 ml 480 ml OutputOutput Total 1110 ml 5 ml BalanceBalance -1060 ml 240 ml 475 ml Results Results 24hrs Laboratory Tests Test 01/02/19 17:21 01/02/19 20:54 01/03/19 07:55 Bedside Glucose 152 128 128 Medications Medication Current Medications IV Flush (NS 3 ml) 3 ml PER PROTOCOL IV ; Start 12/24/18 at 23:30 Ondansetron HCl (Zofran Inj) 4 mg Q6H PRN IV NAUSEA/VOMITING; Start 12/24/18 at 23:30 Acetaminophen (Tylenol Tab) 650 mg Q6H PRN PO .PAIN 1-3 OR TEMP Last administered on 12/30/18at 01:01; Admin Dose 650 MG; Start 12/24/18 at 23:30 Acetaminophen/ Hydrocodone Bitart ([place] (5/325)) 1 tab Q6H PRN PO .MOD PAIN 4- 6; Start 12/24/18 at 23:30 Docusate Sodium (Colace) 100 mg Q12H PRN PO .CONSTIPATION Last administered on 12/30/18 06:19; Admin Dose 100 MG; Start 12/24/18 at 23:30 Bisacodyl (Dulcolax) 5 mg DAILY PRN PO .CONSTIPATION; Start 12/24/18 at 23:30 Enoxaparin Sodium (Lovenox) 30 mg DAILY SC Last administered on 01/03/19 08:00; Admin Dose 30 MG; Start 12/25/18 at 09:00 Diagnostic Test (Pha) (Accu-Chek) 1 ea 02 XX Last administered on 01/03/19 02:07; Admin Dose 1 EA; Start 12/25/18 at 02:00 Insulin Aspart (Novolog Insulin Pen) NOVOLOG *MILD* ALGORITHM WITH MEALS BEDTIME SC Last administered on 01/02/19 17:34; Admin Dose 1 UNIT; Start 12/25/18 at 08:00 Sodium Hypochlorite (Dakin'S (Dilute )) 1 applic BID IRR Last administered on 01/02/19 08:25; Admin Dose 1 APPLIC; Start 12/25/18 at 21:00 Insulin Aspart (Novolog Insulin Pen) 10 unit WITH MEALS SC Last administered on 01/03/19 07:59; Admin Dose 10 UNIT; Start 12/26/18 at 11:30 Cholecalciferol (Vitamin D) 2,000 unit DAILY PO Last administered on 01/03/19 08:00; Admin Dose 2,000 UNIT; Start 12/26/18 at 13:00 Ceftriaxone Sodium 50 ml @ 100 mls/hr Q24H IVPB Last administered on 01/03/19 11:50; Admin Dose 100 MLS/HR; Start 12/27/18 at 12:00 Insulin Glargine (Lantus) 30 units DAILY@2000 SC Last administered on 01/02/19 21:04; Admin Dose 30 UNITS; Start 12/27/18 at 20:00 Lactobacillus Acidophilus/ Rhamnosus (Culturelle) 1 cap BID PO Last administered on 01/03/19 08:00; Admin Dose 1 CAP; Start 12/27/18 at 21:00 Aspirin (Halfprin) 81 mg DAILY PO Last administered on 2/18/19at 08:00; Admin Dose 81 MG; Start 12/28/18 at 09:00 Miscellaneous Information 1 ea NOTE XX ; Start 12/27/18 at 18:30 Glucose (Glutose) 15 gm Q15M PRN PO DECREASED GLUCOSE; Start 12/27/18 at 18:30 Glucose (Glutose) 22.5 gm Q15M PRN PO DECREASED GLUCOSE; Start 12/27/18 at 18:30 Dextrose (D50w Syringe) 25 ml Q15M PRN IV DECREASED GLUCOSE; Start 12/27/18 at 18:30 Dextrose (D50w Syringe) 50 ml Q15M PRN IV DECREASED GLUCOSE; Start 12/27/18 at 18:30 Glucagon (Glucagen) 1 mg Q15M PRN IM DECREASED GLUCOSE; Start 12/27/18 at 18:30 Glucose (Glutose) 15 gm Q15M PRN BUCCAL DECREASED GLUCOSE; Start 12/27/18 at 18:30 Guaifenesin/ Dextromethorphan (Robitussin Dm Liquid Cup) 10 ml Q4H PRN PO COUGH; Start 12/27/18 at 19:30 Morphine Sulfate (morphine) 6 mg Q4H PRN PO SEVERE PAIN LEVEL 7-10; Start 12/27/18 at 23:30 Repaglinide (Prandin) 2 mg AC MEALS PO Last administered on 01/03/19at 07:58; Admin Dose 2 MG; Start 12/30/18 at 07:30 Neomycin/ Polymyxin/ Bacitracin (Neosporin Topical Oint) 1 applic DAILY TOP Last administered on 01/03/19at 08:01; Admin Dose 1 APPLIC; Start 12/31/18 at 09:00 JONNY HOWARD NP Jan 03, 2019 12:04
[2019-01-03 14:38] VITALS: BP 121/75; PULSE 75; RESP 18
--- NOTE | 2019-01-03 17:22 | CONS ---
Assessment/Plan Assessment/Plan Hospital Course (Demo Recall) ID PROGRESS NOTE CURRENT ABX: DAY # 9 => Ceftriaxone 12/31/18 0539 12/31/18 0539 HOSPITAL COURSE * s/p Left 5th ray resection, application of skin allograft, and wound VAC application by Dr. Orona on 12/28/18. 24H INTERVAL SUMMARY * Wound Vac RN BOB changed today DC planning in process --- pending arrangement of wound Vac = Left foot wound vac in place * Patient w/optimistic, positive, pleasant affect -- doing well MICRO/OTHER * Microbiology: Wound culture growing strep agalactiae urine culture growing BEAU * 12/28/18 wound cx: WOUND CULTURE Final Organism 1 STAPHYLOCOCCUS AUREUS QUANTITY 1+ Organism 2 STREP AGALACTIAE - (GROUP B) QUANTITY 1+ S AUREUS M.I.C. RX --------- --- CEFAZOLIN S CIPROFLOXACIN <=0.5 S CLINDAMYCIN <=0.25 S DOXYCYCLINE S ERYTHROMYCIN <=0.25 S LEVOFLOXACIN 0.25 S OXACILLIN 0.5 S PENICILLIN-G >=0.5 R RIFAMPIN <=0.5 S VANCOMYCIN <=0.5 S TRIMETHOPRIM/SULFAMETHOXAZOLE <=10 S S AGA(GR B Zone Size RX --------- --- * CEFOTAXIME S * CLINDAMYCIN I * ERYTHROMYCIN S * PENICILLIN S * * 12/25/17 WOUND CX: WOUND CULTURE Final Organism 1 STREP AGALACTIAE - (GROUP B) QUANTITY 3+ Organism 2 COAGULASE NEGATIVE STAPH QUANTITY SCANT GROWTH COAG NEG M.I.C. RX --------- --- CEFAZOLIN S CIPROFLOXACIN <=0.5 S CLINDAMYCIN <=0.25 S DOXYCYCLINE S ERYTHROMYCIN >=8 R LEVOFLOXACIN <=0.12 S OXACILLIN <=0.25 S PENICILLIN-G >=0.5 R RIFAMPIN <=0.5 S VANCOMYCIN <=0.5 S TRIMETHOPRIM/SULFAMETHOXAZOLE 160 R S AGA(GR B Zone Size RX --------- --- * CEFOTAXIME S * CLINDAMYCIN I * ERYTHROMYCIN I * PENICILLIN S * 12/24/18 URINE CX URINE CULTURE Final Organism 1 STAPHYLOCOCCUS AUREUS COLONY COUNT >100,000 CFU/ml S AUREUS M.I.C. RX --------- --- CEFAZOLIN S CIPROFLOXACIN <=0.5 S DOXYCYCLINE S LEVOFLOXACIN 0.25 S OXACILLIN 0.5 S PENICILLIN-G >=0.5 R RIFAMPIN <=0.5 S VANCOMYCIN <=0.5 S TRIMETHOPRIM/SULFAMETHOXAZOLE <=10 S * 12/24/18 BCx (-) PHYSICAL EXAMINATION: GENERAL: Afebrile, VSS, obese HEENT: AT, NC, anicteric NECK: Supple, trach midline CHEST: Equal chest rise bilaterally, without dyspnea on observation HEART: Pulse RRR ABDOMEN: Soft / NT EXTREMITIES: Warm, dry - Left foot dressing intact left lower extremity edematous with slight erythema SKIN: No rash, no diaphoresis ID ASSESSMENT 43 yo M admit with: 1. Resolving sepsis, present on admission * SIRs w/mild leukocytosis persisting 2. 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 Poorly controlled diabetes 4. Obesity 5. Peripheral vascular and arterial disease 6. UTI (-)MRSA Nares ABX ALLERGIES: KNDA INVASIVES: PIV CURRENT ABX: DAY #9=> Ceftriaxone ID RECOMMENDATIONS/PLAN: 1. Continue current ABX -- per ID colleague note anticipate 4-6 weeks total course - treat until infection resolved . Consultation Date/Type/Reason Admit Date/Time Dec 24, 2018 at 21:20 Initial Consult Date Date/Time of Note DATE: 01/03/19 TIME: 17:18 Exam/Review of Systems Exam Vitals Vital Signs Date Temp Pulse Resp B/P (MAP) Pulse Ox O2 O2 Flow FiO2 Time Delivery Rate 01/03/19 98.5 75 18 121/75 96 Room Air 14:38 (90) Intake and Output 01/02/19 01/02/19 01/03/19 1515:00 23:00 07:00 IntakeIntake Total 50 ml 240 ml 480 ml OutputOutput Total 1110 ml 5 ml BalanceBalance -1060 ml 240 ml 475 ml Results Result Diagram: 12/31/18 0539 12/31/18 0539 Results 24hrs Laboratory Tests Test 01/02/19 17:21 01/02/19 20:54 01/03/19 07:55 01/03/19 11:57 Bedside Glucose 152 128 128 114 Test 01/03/19 17:12 Bedside Glucose 113 Medications Medication Current Medications IV Flush (NS 3 ml) 3 ml PER PROTOCOL IV ; Start 12/24/18 at 23:30 Ondansetron HCl (Zofran Inj) 4 mg Q6H PRN IV NAUSEA/VOMITING; Start 12/24/18 at 23:30 Acetaminophen (Tylenol Tab) 650 mg Q6H PRN PO .PAIN 1-3 OR TEMP Last administered on 12/30/18 01:01; Admin Dose 650 MG; Start 12/24/18 at 23:30 Acetaminophen/ Hydrocodone Bitart ([place] (5/325)) 1 tab Q6H PRN PO .MOD PAIN 4- 6; Start 12/24/18 at 23:30 Docusate Sodium (Colace) 100 mg Q12H PRN PO .CONSTIPATION Last administered on 12/30/18 06:19; Admin Dose 100 MG; Start 12/24/18 at 23:30 Bisacodyl (Dulcolax) 5 mg DAILY PRN PO .CONSTIPATION; Start 12/24/18 at 23:30 Enoxaparin Sodium (Lovenox) 30 mg DAILY SC Last administered on 01/03/19 0 8:00; Admin Dose 30 MG; Start 12/25/18 at 09:00 Diagnostic Test (Pha) (Accu-Chek) 1 ea 02 XX Last administered on 01/03/19 02:07; Admin Dose 1 EA; Start 12/25/18 at 02:00 Insulin Aspart (Novolog Insulin Pen) NOVOLOG *MILD* ALGORITHM WITH MEALS BEDTIME SC Last administered on 01/02/19 17:34; Admin Dose 1 UNIT; Start 12/25/18 at 08:00 Sodium Hypochlorite (Dakin'S (Dilute 40)) 1 applic BID IRR Last administered on 01/02/19 08:25; Admin Dose 1 APPLIC; Start 12/25/18 at 21:00 Insulin Aspart (Novolog Insulin Pen) 10 unit WITH MEALS SC Last administered on 01/03/19 17:14; Admin Dose 10 UNIT; Start 12/26/18 at 11:30 Cholecalciferol (Vitamin D) 2,000 unit DAILY PO Last administered on 01/03/19 08:00; Admin Dose 2,000 UNIT; Start 12/26/18 at 13:00 Ceftriaxone Sodium 50 ml @ 100 mls/hr Q24H IVPB Last administered on 01/03/19at 11:50; Admin Dose 100 MLS/HR; Start 12/27/18 at 12:00 Insulin Glargine (Lantus) 30 units DAILY@2000 SC Last administered on 01/02/19at 21:04; Admin Dose 30 UNITS; Start 12/27/18 at 20:00 Lactobacillus Acidophilus/ Rhamnosus (Culturelle) 1 cap BID PO Last admin istered on 01/03/19at 08:00; Admin Dose 1 CAP; Start 12/27/18 at 21:00 Aspirin (Halfprin) 81 mg DAILY PO Last administered on 01/03/19at 08:00; Admin Dose 81 MG; Start 12/28/18 at 09:00 Miscellaneous Information 1 ea NOTE XX ; Start 12/27/18 at 18:30 Glucose (Glutose) 15 gm Q15M PRN PO DECREASED GLUCOSE; Start 12/27/18 at 18:30 Glucose (Glutose) 22.5 gm Q15M PRN PO DECREASED GLUCOSE; Start 12/27/18 at 18:30 Dextrose (D50w Syringe) 25 ml Q15M PRN IV DECREASED GLUCOSE; Start 12/27/18 at 18:30 Dextrose (D50w Syringe) 50 ml Q15M PRN IV DECREASED GLUCOSE; Start 12/27/18 at 18:30 Glucagon (Glucagen) 1 mg Q15M PRN IM DECREASED GLUCOSE; Start 12/27/18 at 18:30 Glucose (Glutose) 15 gm Q15M PRN BUCCAL DECREASED GLUCOSE; Start 12/27/18 at 18:30 Guaifenesin/ Dextromethorphan (Robitussin Dm Liquid Cup) 10 ml Q4H PRN PO COUGH; Start 12/27/18 at 19:30 Morphine Sulfate (morphine) 6 mg Q4H PRN PO SEVERE PAIN LEVEL 7-10; Start 12/27/18 at 23:30 Repaglinide (Prandin) 2 mg AC MEALS PO Last administered on 01/03/19at 17:13; Admin Dose 2 MG; Start 12/30/18 at 07:30 Neomycin/ Polymyxin/ Bacitracin (Neosporin Topical Oint) 1 applic DAILY TOP Last administered on 01/03/19at 08:01; Admin Dose 1 APPLIC; Start 12/31/18 at 09:00 MARYANN FABIAN NP Jan 03, 2019 17:22
[2019-01-03 20:00] VITALS: BP 136/70; PULSE 82; RESP 18
[2019-01-03] MEDS: INSULIN GLARGINE [LANTus] (100 UNITS/ML) SYG SC SCH (21:41)
[2019-01-04 02:00] VITALS: BP 132/73; PULSE 75; RESP 18
[2019-01-04] MEDS: ACCU-CHEK XX SCH (02:00)
--- NOTE | 2019-01-04 05:41 | PN ---
Date/Time of Note Date/Time of Note Assessment/Plan VTE Prophylaxis Risk score (from Ns)>0 risk: 7 Lines/Catheters Urinary Cath still in place: No Assessment/Plan Result Diagram: 12/31/18 0539 12/31/1839 Results 24hrs Exam/Review of Systems Exam Vitals Results Results 24hrs Medications Medication JONNY HOWARD NP Jan 04, 2019 05:41
[2019-01-04 08:00] VITALS: BP 114/71; PULSE 82; RESP 18
[2019-01-04] MEDS: INSULIN ASPART [NOVOLOG] 3 ML PEN SC SCH ×6 (08:00→17:58)
[2019-01-04] MEDS: REPAGLINIDE 2 MG TAB PO SCH ×3 (08:10→17:56)
[2019-01-04] MEDS: SODIUM HYPOCHLORITE (1/40) 1 APPLIC BTL IRR SCH (09:00)
[2019-01-04] MEDS: CHOLECALCIFEROL 2,000 UNIT CAP PO SCH (09:38)
[2019-01-04] MEDS: ASPIRIN (EC) 81 MG TAB PO SCH (09:38)
[2019-01-04] MEDS: LACTOBACILLUS RHAMNOSUS CAP PO SCH (09:38)
[2019-01-04] MEDS: ENOXAPARIN 30 MG/0.3 ML SYG SC SCH (09:40)
[2019-01-04] MEDS: NEOMYC/POLYMYX/BACIT 30 GM OINT TOP SCH (09:45)
[2019-01-04] MEDS: CEFTRIAXONE 2 GM/50 ML (PMX) 50 ML IVPB SCH (12:01)
[2019-01-04 14:00] VITALS: BP 103/59; PULSE 88; RESP 20
[2019-01-04] MEDS ORDERED: CHOL200073 PO (14:49)
[2019-01-04] MEDS ORDERED: NOVO3I SC (14:49)
[2019-01-04] MEDS ORDERED: LACT1CAP28 PO (14:49)
[2019-01-04] MEDS ORDERED: Insulin Glargine SC (14:49)
[2019-01-04] MEDS ORDERED: REPA2TAB23 PO (14:49)
[2019-01-04] MEDS ORDERED: ASPI-1044 PO (14:49)
[2019-01-04] MEDS ORDERED: CEFT2PIG2 IVPB (15:00)
--- NOTE | 2019-01-04 15:01 | PDOCDIS ---
Discharge Instructions CONDITION [id number] Patient Condition: [id number] Stable HOME CARE INSTRUCTIONS: [id number] Special Diet: [id number] Carbohydrate controlled FOLLOW UP/APPOINTMENTS Follow-up Plan Sukh Orona D[facility]. Phone [phone] OTHER ORDERS: Other Orders: 1. Take medications as per prescription. 2. Take a low-cholesterol, low carbohydrate diet. 3. Follow-up with Dr. Orona in 2 weeks (please call for appointment). 4. Restriction of weightbearing on the affected extremity as per Dr. Orona. 5. Please go to the nearest emergency room if you have persistent fevers, significant lower extremity pain, or any other unusual signs/sinus JONNY HOWARD NP Jan 04, 2019 15:01
--- NOTE | 2019-01-04 15:17 | DS ---
Date/Time of Note Date/Time of Note DATE: 01/04/19 TIME: 15:17 Discharge Summary Admission/Discharge Info Admit Date/Time Dec 24, 2018 at 21:20 Discharge Date/Time Discharge Diagnosis 1. Sepsis with leukocytosis, febrile illness, and tachycardia present on admi ssion secondary to underlying left foot infection and underlying urinary tract infection. 2. Infected left foot diabetic ulcer. 3. Left foot osteomyelitis: left foot gangrene. S/P partial fifth ray resection, application of skin allograft, and application of wound vac on 12/28/2018 4. Urinary tract infection. 5. Diabetes mellitus type 2. Hemoglobin A1c 12.7. 6. Anemia. Microcytic and hypochromic 7. Obesity. BMI 33.5 kg/m. 8. Vitamin D deficiency. 9. Peripheral artery disease. Patient Condition: Stable Consults 1. Lakhwinder Cortez MD, Infectious Diseases. 2. Benito Sin DPM, Podiatry. 3. Sukh Orona DPM, Podiatry. 4. Josesito Hendrickson MD, Vascular Surgery. Procedures Date/Time of Note Date/Time of Note DATE: 12/28/18 TIME: 13:27 Operative Report Preoperative Diagnosis Left foot diabetic ulcer Left foot cellulitis Left foot osteomyelitis DM2 with peripheral neuropathy Postoperative Diagnosis Left foot diabetic ulcer Left foot cellulitis Left foot osteomyelitis DM2 with peripheral neuropathy Operation/Procedure Performed Left foot partial 5th ray resection Application of skin allograft left foot Application of wound VAC left foot Left Foot MRI IMPRESSION: Findings consistent with osteomyelitis of the fifth toe proximal phalanx with overlying wound/ulcer and edema. Mild bone marrow edema in the distal head of the fifth metatarsal, as well as small joint effusion at the fifth MTP joint concerning for possible septic arthritis and early osteomyelitis of the distal fifth metatarsal. No loculated or drainable fluid collection to suggest abscess. B/L LE Arterial Doppler Study IMPRESSION: Monophasic waveforms in the bilateral dorsalis pedis arteries consistent with significant stenoses. Hx of Present Illness This is a 43-year-old male with comorbidities including obesity, diabetes mellitus type 2, and neuropathy who came to the emergency room with chief complaint of left foot wound that has been going on for the past 3 weeks. As per the patient he had a fluid-filled cyst on the plantar surface of his foot that he drained himself and tried putting topical antibiotics. He denied any fevers or chills. In the emergency room, the patient was noticed to have evidence of sepsis with leukocytosis, febrile illness, and tachycardia. The patient was admitted to inpatient setting for further treatment and evaluation. Hospital Course The patient had evidence of underlying sepsis secondary to left foot infection and urinary tract infection. The patient was started on empiric antimicrobials. The patient's left foot wound culture showed a polymicrobials including Staph aureus and Strep agalactiae. The patient underwent a left foot MRI that was showing evidence of osteomyelitis. Therefore, the patient underwent a partial fifth ray resection with application of skin allograft and application of wound VAC on 12/28/2018. the patient underwent a bilateral arterial Doppler study that was showing some evidence of PAD. He was evaluated by a vascular surgeon who conveyed that the patient has adequate circulation for the ulcer to be healed. Since the patient has underlying osteomyelitis, the patient had a PICC line inserted and the patient will be maintained on long-term IV antibiotic therapy. The patient also had evidence of underlying urinary tract infection with urine culture showing Staph aureus with a colony count more than 100,000 CFU per mL. The patient was noticed to have uncontrolled diabetes mellitus as evidenced by hemoglobin A1c of 12.7. The patient was only on oral medications for his d iabetes prior to this admission. The patient was started on sliding scale insulin along with basal insulin and pre-meal insulin. The patient was also started on premeal meglitinides for optimal blood sugar control. The patient was evaluated by certified orthotist and registered dietitian. Upon discharge, the patient will be discharged on insulin along with metformin and premeal m eglitinides. The patient was noticed to be morbidly obese with a BMI of more than 33 kg/m. The patient was evaluated by a registered dietitian and the patient was advised on weight reduction. The patient was also noticed to have significant vitamin D deficiency. Therefore, the patient was started on vitamin D supplements. The patient needs long-term IV antibiotics because of his underlying osteomyelitis. Therefore the patient had a PICC line inserted and IV antibiotics were arranged for home health to be given to complete the course as recommended by infectious diseases. The patient will also be discharged home with a wound VAC. Wound VAC was arranged. The patient was also evaluated by physical therapy. The patient will be provided with a front wheel walker upon discharge. The patient had a prolonged hospital course because of the complexity of the patient's clinical condition. Discharge instructions 1. Take medications as per prescription. 2. Take a low-cholesterol, low carbohydrate diet. 3. Follow-up with Dr. Orona in 2 weeks (please call for appointment). 4. Restriction of weightbearing on the affected extremity as per Dr. Orona. 5. Please go to the nearest emergency room if you have persistent fevers, significant lower extremity pain, or any other unusual signs/symptoms. The patient verbalized understanding of his discharge instructions. At this time I would like to thank all the consultants for seeing the patient, doing the necessary procedures, and providing clinical recommendations. The patient was seen in collaboration with Dr. Varela. Home Meds Active Scripts Ceftriaxone Sod* (Rocephin* 2GM/D5W (PMX)) 2 Gm/50 Ml Iv.soln., 2 GM IVPB Q24H, #42 EA To complete a course of 6 weeks. Prov:JONNY HOWARD NP 01/04/19 Insulin Aspart* (Novolog Insulin Pen*) 100 Unit/Ml Soln, 10 UNIT SC WITH MEALS, #1 UNIT Prov:JONNY HOWARD NP 01/04/19 [Insulin Glargine] 100 UNITS/ML SOLN No Conflict Check, 30 UNITS SC DAILY@2000, #1 UNIT Prov:JONNY HOWARD NP 01/04/19 Lactobacillus Rhamnosus GG (Culturelle) 1 Each Capsule, 1 CAP PO BID, #60 CAP Prov:JONNY HOWARD NP 01/04/19 Cholecalciferol (Vitamin D3) (VITAMIN D-3) 2,000 Unit Capsule, 2000 UNIT PO DAILY, #30 CAP Prov:JONNY HOWARD NP 01/04/19 Repaglinide* (Prandin*) 2 Mg Tablet, 2 MG PO AC MEALS, #90 TAB Prov:JONNY HOWARD NP 01/04/19 Aspirin Delayed Release (Aspirin Delayed Release) 81 Mg Tablet.dr 81 MG PO DAILY, #30 TAB Prov:JONNY HOWARD NP 01/04/19 Reported Medications Metformin Hcl* (Metformin Hcl*) 500 Mg Tablet, 500 MG PO WITH BREAKFAST DINNE, #60 TAB 12/24/18 Discontinued Reported Medications Glipizide* (Glipizide*) 10 Mg Tablet, 10 MG PO AC BREAKFAST, TAB 12/24/18 Follow-up Plan Sukh Orona D[facility]. Phone [phone] Primary Care Provider Care Physician No Primary Time spent on discharge: > 30 minutes Pending Labs Laboratory Tests Test 01/03/19 17:12 01/03/19 21:37 01/04/19 08:08 01/04/19 12:07 Bedside 113 143 116 137 Glucose mg/dL (70-220) mg/dL (70-220) mg/dL (70-220) mg/dL (70-220) JONNY HOWARD NP Jan 04, 2019 15:17
--- NOTE | 2019-01-04 16:11 | CONS ---
Assessment/Plan Assessment/Plan Hospital Course (Demo Recall) ID PROGRESS NOTE CURRENT ABX: DAY # 10 => Ceftriaxone HOSPITAL COURSE * s/p Left 5th ray resection, application of skin allograft, and wound VAC application by Dr. Orona on 12/28/18. 24H INTERVAL SUMMARY * Clinically stable on long-term 6 week course IV ABX for diabetic foot infection w/OM * Patient w/charismatic, pleasant affect and optimistic attitude -- he has no complaints * Wound Vac RN BOB changed yesterday DC planning in process --- pending arrangement of wound Vac = Left foot wound vac in place * Patient w/optimistic, positive, pleasant affect -- doing well MICRO/OTHER * Microbiology: Wound culture growing strep agalactiae urine culture growing BEAU * 12/28/18 wound cx: WOUND CULTURE Final Organism 1 STAPHYLOCOCCUS AUREUS QUANTITY 1+ Organism 2 STREP AGALACTIAE - (GROUP B) QUANTITY 1+ S AUREUS M.I.C. RX --------- --- CEFAZOLIN S CIPROFLOXACIN <=0.5 S CLINDAMYCIN <=0.25 S DOXYCYCLINE S ERYTHROMYCIN <=0.25 S LEVOFLOXACIN 0.25 S OXACILLIN 0.5 S PENICILLIN-G >=0.5 R RIFAMPIN <=0.5 S VANCOMYCIN <=0.5 S TRIMETHOPRIM/SULFAMETHOXAZOLE <=10 S S AGA(GR B Zone Size RX --------- --- * CEFOTAXIME S * CLINDAMYCIN I * ERYTHROMYCIN S * PENICILLIN S * * 12/25/17 WOUND CX: WOUND CULTURE Final Organism 1 STREP AGALACTIAE - (GROUP B) QUANTITY 3+ Organism 2 COAGULASE NEGATIVE STAPH QUANTITY SCANT GROWTH COAG NEG M.I.C. RX --------- --- CEFAZOLIN S CIPROFLOXACIN <=0.5 S CLINDAMYCIN <=0.25 S DOXYCYCLINE S ERYTHROMYCIN >=8 R LEVOFLOXACIN <=0.12 S OXACILLIN <=0.25 S PENICILLIN-G >=0.5 R RIFAMPIN <=0.5 S VANCOMYCIN <=0.5 S TRIMETHOPRIM/SULFAMETHOXAZOLE 160 R S AGA(GR B Zone Size RX --------- --- * CEFOTAXIME S * CLINDAMYCIN I * ERYTHROMYCIN I * PENICILLIN S * 12/24/18 URINE CX URINE CULTURE Final Organism 1 STAPHYLOCOCCUS AUREUS COLONY COUNT >100,000 CFU/ml S AUREUS M.I.C. RX --------- --- CEFAZOLIN S CIPROFLOXACIN <=0.5 S DOXYCYCLINE S LEVOFLOXACIN 0.25 S OXACILLIN 0.5 S PENICILLIN-G >=0.5 R RIFAMPIN <=0.5 S VANCOMYCIN <=0.5 S TRIMETHOPRIM/SULFAMETHOXAZOLE <=10 S * 12/24/18 BCx (-) PHYSICAL EXAMINATION: GENERAL: Afebrile, VSS, obese HEENT: AT, NC, anicteric NECK: Supple, trach midline CHEST: Equal chest rise bilaterally, without dyspnea on observation HEART: Pulse RRR ABDOMEN: Soft / NT EXTREMITIES: Warm, dry - Left foot dressing intact left lower extremity edematous with slight erythema SKIN: No rash, no diaphoresis ID ASSESSMENT 43 yo M admit with: 1. Resolving sepsis, present on admission * SIRs w/mild leukocytosis persisting 2. 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 Poorly controlled diabetes 4. Obesity 5. Peripheral vascular and arterial disease 6. UTI (-)MRSA Nares ABX ALLERGIES: KNDA INVASIVES: PIV CURRENT ABX: DAY #10=> Ceftriaxone ID RECOMMENDATIONS/PLAN: 1. Continue current ABX -- per ID colleague note anticipate 4-6 weeks total course - treat until infection resolved . Consultation Date/Type/Reason Admit Date/Time Dec 24, 2018 at 21:20 Initial Consult Date Date/Time of Note DATE: 01/04/19 TIME: 16:08 Exam/Review of Systems Exam Vitals Vital Signs Date Temp Pulse Resp B/P (MAP) Pulse Ox O2 O2 Flow FiO2 Time Delivery Rate 01/04/19 98.6 82 18 114/71 96 08:00 (85) 01/03/19 Room Air 14:38 Intake and Output 01/03/19 01/03/19 01/04/19 1515:00 23:00 07:00 IntakeIntake Total 170 ml OutputOutput Total 700 ml BalanceBalance 170 ml -700 ml Results Result Diagram: 12/31/18 0539 12/31/18 0539 Results 24hrs Laboratory Tests Test 01/03/19 17:12 01/03/19 21:37 01/04/19 08:08 01/04/19 12:07 Bedside Glucose 113 143 116 137 Medications Medication Current Medications IV Flush (NS 3 ml) 3 ml PER PROTOCOL IV ; Start 12/24/18 at 23:30 Ondansetron HCl (Zofran Inj) 4 mg Q6H PRN IV NAUSEA/VOMITING; Start 12/24/18 at 23:30 Acetaminophen (Tylenol Tab) 650 mg Q6H PRN PO .PAIN 1-3 OR TEMP Last administered on 12/30/18at 01:01; Admin Dose 650 MG; Start 12/24/18 at 23:30 Acetaminophen/ Hydrocodone Bitart ([place] (5/325)) 1 tab Q6H PRN PO .MOD PAIN 4- 6; Start 12/24/18 at 23:30 Docusate Sodium (Colace) 100 mg Q12H PRN PO .CONSTIPATION Last administered on 12/30/18 06:19; Admin Dose 100 MG; Start 12/24/18 at 23:30 Bisacodyl (Dulcolax) 5 mg DAILY PRN PO .CONSTIPATION; Start 12/24/18 at 23:30 Enoxaparin Sodium (Lovenox) 30 mg DAILY SC Last administered on 01/04/19 09:40; Admin Dose 30 MG; Start 12/25/18 at 09:00 Diagnostic Test (Pha) (Accu-Chek) 1 ea 02 XX Last administered on 01/03/19at 02:07; Admin Dose 1 EA; Start 12/25/18 at 02:00 Insulin Aspart (Novolog Insulin Pen) NOVOLOG *MILD* ALGORITHM WITH MEALS BEDTIME SC Last administered on 01/02/19at 17:34; Admin Dose 1 UNIT; Start 12/25/18 at 08:00 Sodium Hypochlorite (Dakin'S (Dilute )) 1 applic BID IRR Last administered on 01/02/19 08:25; Admin Dose 1 APPLIC; Start 12/25/18 at 21:00 Insulin Aspart (Novolog Insulin Pen) 10 unit WITH MEALS SC Last administered on 01/04/19at 12:10; Admin Dose 10 UNIT; Start 12/26/18 at 11:30 Cholecalciferol (Vitamin D) 2,000 unit DAILY PO Last administered on 01/04/19 09:38; Admin Dose 2,000 UNIT; Start 12/26/18 at 13:00 Ceftriaxone Sodium 50 ml @ 100 mls/hr Q24H IVPB Last administered on 01/04/19 12:01; Admin Dose 100 MLS/HR; Start 12/27/18 at 12:00 Insulin Glargine (Lantus) 30 units DAILY@2000 SC Last administered on 01/03/19 21:41; Admin Dose 30 UNITS; Start 12/27/18 at 20:00 Lactobacillus Acidophilus/ Rhamnosus (Culturelle) 1 cap BID PO Last administered on 01/04/19 09:38; Admin Dose 1 CAP; Start 12/27/18 at 21:00 Aspirin (Halfprin) 81 mg DAILY PO Last administered on 01/04/19 09:38; Admin Dose 81 MG; Start 12/28/18 at 09:00 Miscellaneous Information 1 ea NOTE XX ; Start 12/27/18 at 18:30 Glucose (Glutose) 15 gm Q15M PRN PO DECREASED GLUCOSE; Start 12/27/18 at 18:30 Glucose (Glutose) 22.5 gm Q15M PRN PO DECREASED GLUCOSE; Start 12/27/18 at 18:30 Dextrose (D50w Syringe) 25 ml Q15M PRN IV DECREASED GLUCOSE; Start 12/27/18 at 18:30 Dextrose (D50w Syringe) 50 ml Q15M PRN IV DECREASED GLUCOSE; Start 12/27/18 at 18:30 Glucagon (Glucagen) 1 mg Q15M PRN IM DECREASED GLUCOSE; Start 12/27/18 at 18:30 Glucose (Glutose) 15 gm Q15M PRN BUCCAL DECREASED GLUCOSE; Start 12/27/18 at 18:30 Guaifenesin/ Dextromethorphan (Robitussin Dm Liquid Cup) 10 ml Q4H PRN PO COUGH; Start 12/27/18 at 19:30 Morphine Sulfate (morphine) 6 mg Q4H PRN PO SEVERE PAIN LEVEL 7-10; Start 12/27/18 at 23:30 Repaglinide (Prandin) 2 mg AC MEALS PO Last administered on 01/04/19at 12:08; Admin Dose 2 MG; Start 12/30/18 at 07:30 Neomycin/ Polymyxin/ Bacitracin (Neosporin Topical Oint) 1 applic DAILY TOP Last administered on 01/04/19at 09:45; Admin Dose 1 APPLIC; Start 12/31/18 at 09:00 MARYANN FABIAN NP Jan 04, 2019 16:11
== END 2019-01-04 18:30 | disposition home health service (06) | DRG 854 ==
LOC: FTE 19:21 → PP2 21:20
PROVIDERS: ADMIT Family Medicine; ATTEND Internal Medicine
PROC: 0KBW0ZZ Excision of Left Foot Muscle, Open Approach (ICD-10-PCS; 2018-12-25)
PROC: 0Y9N0ZZ Drainage of Left Foot, Open Approach (ICD-10-PCS; 2018-12-25)
PROC: 0Y6M0ZF Detachment at Right Foot, Partial 5th Ray, Open Approach (ICD-10-PCS; 2018-12-28)
PROC: 0HRNXK3 Replacement of Left Foot Skin with Nonautologous Tissue Substitute, Full Thickness, External Approach (ICD-10-PCS; 2018-12-28)
PROC: 02HV33Z Insertion of Infusion Device into Superior Vena Cava, Percutaneous Approach (ICD-10-PCS; principal; 2018-12-31)
DX: A41.9 Sepsis, unspecified organism (principal); N39.0 Urinary tract infection, site not specified; E11.52 Type 2 diabetes mellitus with diabetic peripheral angiopathy with gangrene; I96 Gangrene, not elsewhere classified; M86.9 Osteomyelitis, unspecified; R65.20 Severe sepsis without septic shock; E11.621 Type 2 diabetes mellitus with foot ulcer; L97.529 Non-pressure chronic ulcer of other part of left foot with unspecified severity; E11.65 Type 2 diabetes mellitus with hyperglycemia; E66.9 Obesity, unspecified; E11.42 Type 2 diabetes mellitus with diabetic polyneuropathy; D64.9 Anemia, unspecified; E55.9 Vitamin D deficiency, unspecified; L03.032 Cellulitis of left toe; E11.69 Type 2 diabetes mellitus with other specified complication; R05 Cough; Z68.33 Body mass index [BMI] 33.0-33.9, adult
CPT/HCPCS: 36415; 36569; 71045; 73718; 76937; 80048; 80053; 80061; 80202; 81001; 82043; 82306; 82652; 82962; 83036; 83605; 83735; 84100; 84443; 85025; 85610; 85730; 86140; 87040; 87070; 87075; 87086; 87102; 88304; 88311; 93005; 93923; 93970; 96374; 97161; C1769; J0692; J0696; J1650; J1815; J2250; J2405; J2543; J2765; J3010; J3370; J7030; J7050; Q4104-JC

== ENCOUNTER 2019-03-03 10:35 | Day surgery (SDC) | payer OTHER ==
[~2019-03-03] VITALS: Ht 172.7 cm; Wt 106.5 kg
[2019-03-03] VITALS (17 sets, daily range): BP systolic 94–185; BP diastolic 53–91; PULSE 84–104; RESP 13–19; Ht 172.7 cm; Wt 106.5 kg
[~2019-03-03 10:35] MED LIST changes: +ASPI-1044 PO; +CEFAZOLIN 2 GM/50 ML (PMX) 50 ML IVPB ONE; +CEFT2PIG2 IVPB; +CHOL200073 PO; -GABA300C16 PO; +Insulin Glargine SC; +LACT1CAP28 PO; +METF500T24 PO; +NOVO3I SC; +REPA2TAB23 PO; +SEVOFLURANE 15 MIN ONE
[2019-03-03] MEDS ORDERED: INSU100I12 SQ (12:00)
[2019-03-03] MEDS ORDERED: METF500T24 PO (12:01)
[2019-03-03] MEDS ORDERED: REPA2TAB23 PO (12:01)
[2019-03-03] MEDS ORDERED: LISI2.5T59 PO (12:02)
[2019-03-03] MEDS ORDERED: ASPI81TA52 PO (12:02)
[2019-03-03] MEDS ORDERED: LACT1CAP47 PO (12:03)
[2019-03-03] MEDS ORDERED: GABA100C14 PO (12:03)
--- NOTE | 2019-03-03 12:16 | HPN ---
Date/Time of Note Date/Time of Note DATE: 03/03/19 TIME: 12:16 Interval H&P Admission Note Pt. seen H&P reviewed: No system changes VERONICA BARRIOS DPM Mar 03, 2019 12:16
[2019-03-03] MEDS ORDERED: LIDOCAINE 1%/EPI (1:100,000) (MDV) 20 ML ONE (12:19)
[2019-03-03] MEDS ORDERED: MINERAL OIL LIGHT 10 ML VIAL ONE (12:19)
[2019-03-03] MEDS ORDERED: MINERAL OIL LIGHT 10 ML VIAL TOP ONE (12:30)
[2019-03-03] MEDS ORDERED: LIDOCAINE 1%/EPI (1:100,000) (MDV) 20 ML INJ ONE (12:30)
--- NOTE | 2019-03-03 12:40 | PREAC ---
Date/Time of Note Date/Time of Note DATE: 03/03/19 TIME: 12:37 Anesthesia Eval and Record Evaluation Time Pre-Procedure Interview DATE: 03/03/19 TIME: 12:30 Age 43 Sex male NPO: 8 hrs Preoperative diagnosis left foot wound Planned procedure left foot wound STSG Past Medical History Past Medical History: Includes Endo: Diabetes Surgery & Anesthesia Issues No known issue Meds Anticoagulation: No Beta Srinath within 24 hr: No Reason Beta Srinath not given: Pt. not on B-Srinath Reported Medications Lactobacillus Acidophilus (Probiotic) 1 Each Capsule, 1 CAP PO DAILY, CAP 03/03/19 Gabapentin* (Gabapentin*) 100 Mg Capsule, 100 MG PO BID, #90 CAP 03/03/19 Lisinopril* (Lisinopril*) 2.5 Mg Tablet, 2.5 MG PO DAILY, #30 TAB 03/03/19 Aspirin (Low Dose Aspirin) 81 Mg Tablet.dr, 81 MG PO DAILY, #30 TAB 03/03/19 Repaglinide* (Prandin*) 2 Mg Tablet, 2 MG PO AC MEALS, TAB 03/03/19 Metformin Hcl* (Metformin Hcl*) 500 Mg Tablet, 500 MG PO WITH LUNCH, #30 TAB 03/03/19 Insulin Lispro (Humalog Kwikpen U-100) 100 Unit/1 Ml Insuln.pen, 10 UNIT SQ AC A, EA 03/03/19 Discontinued Reported Medications Metformin Hcl* (Metformin Hcl*) 500 Mg Tablet, 500 MG PO WITH BREAKFAST DINNE, #60 TAB 12/24/18 Discontinued Scripts Ceftriaxone Sod* (Rocephin* 2GM/D5W (PMX)) 2 Gm/50 Ml Iv.soln., 2 GM IVPB Q24H, #42 EA To complete a course of 6 weeks. Prov:JONNY HOWARD NP 01/04/19 Insulin Aspart* (Novolog Insulin Pen*) 100 Unit/Ml Soln, 10 UNIT SC WITH MEALS, #1 UNIT Prov:JONNY HOWARD NP 01/04/19 [Insulin Glargine] 100 UNITS/ML SOLN No Conflict Check, 30 UNITS SC DAILY@1999, #1 UNIT Prov:JONNY HOWARD MEDICAL GENETICIST 01/04/19 Lactobacillus Rhamnosus GG (Culturelle) 1 Each Capsule, 1 CAP PO BID, #60 CAP Prov:JONNY HOWARD NP 01/04/19 Cholecalciferol (Vitamin D3) (VITAMIN D-3) 2,000 Unit Capsule, 2000 UNIT PO DAILY, #30 CAP Prov:JONNY HOWARD MEDICAL GENETICIST 01/04/19 Repaglinide* (Prandin*) 2 Mg Tablet, 2 MG PO AC MEALS, #90 TAB Prov:JONNY HOWARD MEDICAL GENETICIST 01/04/19 Aspirin Delayed Release (Aspirin Delayed Release) 81 Mg Tablet.dr, 81 MG PO DAILY, #30 TAB Prov:JONNY HOWARD MEDICAL GENETICIST 01/04/19 Meds reviewed: Yes Allergies Coded Allergies: No Known Allergy (Unverified , 03/03/19) Allergies Reviewed: Yes Labs/Studies Labs Reviewed: Reviewed by anesthesiologist test: N/A Pre-procedure Exam Last vitals Vital Signs Date Temp Pulse Resp B/P (MAP) Pulse Ox O2 O2 Flow FiO2 Time Delivery Rate 03/03/19 97.5 84 16 94/53 (67) 98 Room Air 12:14 Airway: Adequate mouth opening, Adequate thyromental dist Mallampati: Mallampati II Teeth: Normal Lung: Normal Heart: Normal ASA Physical Status ASA physical status: 2 Emergency: None Planned Anesthetic General/MAC: MAC Planned Pain Management Parenteral pain med, Local by surgeon Pre-operative Attestations Prior to commencing anesthesia and surgery, the patient was re-evaluated, there was verification of: *The patient's identity *The results of appropriate recent lab work and preoperative vital signs *The above evaluation not changing prior to induction *Anesthetic plan, risk benefits, alternative and complications discussed with patient/family; questions answered; patient/family understands, accepts and wishes to proceed. ALEC DENNISON AREA SAFETY MANAGER Mar 03, 2019 12:40
[2019-03-03] MEDS ORDERED: PROPOFOL 20 ML ONE (12:51)
[2019-03-03] MEDS ORDERED: LIDOCAINE 2% (SDV) 5 ML INJ ONE (12:51)
[2019-03-03] MEDS ORDERED: FAMOTIDINE 20 MG INJ ONE (12:51)
[2019-03-03] MEDS ORDERED: CEFAZOLIN 1 GM INJ ONE (12:51)
[2019-03-03] MEDS ORDERED: ONDANSETRON 4 MG INJ ONE (12:51)
[2019-03-03] MEDS ORDERED: DEXAMETHASONE 4 MG/ML 5 ML INJ ONE (12:51)
[2019-03-03] MEDS ORDERED: GLYCOPYRROLATE 0.4 MG INJ ONE (12:56)
[2019-03-03] MEDS ORDERED: EPHEDrine 25 MG/5 ML SYG ONE (12:56)
--- NOTE | 2019-03-03 13:46 | OPR ---
Date/Time of Note Date/Time of Note DATE: 03/03/19 TIME: 13:46 Operative Report Preoperative Diagnosis Left foot diabetic ulcer Hx of left foot partial ray 5th ray resection DM2 with peripheral neuropathy Postoperative Diagnosis Left foot diabetic ulcer Hx of left foot partial ray 5th ray resection DM2 with peripheral neuropathy Operation/Procedure Performed Left foot wound bed preparation Application of split thickness skin graft to left foot Surgeon see signature line Web Marketing Specialist none Anesthesia Type: general Estimated Blood Loss: 0 - 10 ml's Transfusion none Specimen none Grafts/Implants none Complications none Indications 43 y/o M patient with hx of gangrene and infection to the left foot and underwent a previous left foot partial 5th ray resection. Patient has been following up in the wound clinic and had been using a wound VAC to facilitate granulation tissue. Patient had completed wound VAC therapy and IV antibiotics and was amenable to split thickness skin graft procedure. All of the patient's questions and concerns were addressed. No promises or guarantees were given. Procedure Description Patient was brought into the OR and placed on the OR table in the supine position. The left lower extremity was scrubbed, prepped, and draped in the usual aseptic manner. A formal time out was conducted. Attention was directed to the left foot ulceration site located at the lateral forefoot aspect. Wound measurement is 2.5 x 3 x 0.3cm which was granular in nature, no purulence, erythema, or tunneling appreciated. There was a hyperkeratotic rim. Using curette, scissors, and pickup the wound bed was prepared and satisfactory bleeding was appreciated to the wound bed. Next, using a dermatome set to 0.018in and a split thickness skin graft was harvested from the left lower extremity. Local lidocaine 1% with epinephrine was used at the harvest site. The skin graft was sutured to the left foot wound site using 4-0 nylon. Xeroform and dry sterile dressings were applied to the recipient and donor site. Patient was transferred to PACU with vital signs stable and neurovascular status intact. VERONICA BARRIOS DPM Mar 03, 2019 13:46
--- NOTE | 2019-03-03 13:46 | SIPON ---
Date/Time of Note Date/Time of Note DATE: 03/03/19 TIME: 13:42 Operative Report Preoperative Diagnosis Left foot diabetic ulcer Hx of left foot partial ray 5th ray resection DM2 with peripheral neuropathy Postoperative Diagnosis Left foot diabetic ulcer Hx of left foot partial ray 5th ray resection DM2 with peripheral neuropathy Operation/Procedure Performed Left foot wound bed preparation Application of split thickness skin graft to left foot Surgeon see signature line radiology practitioner assistant none Anesthesia: general Estimated blood loss: 0 - 10 ml's Transfusion Required none Specimen none Grafts/Implants none Complications none VERONICA BARRIOS DPM Mar 03, 2019 13:46
--- NOTE | 2019-03-03 13:47 | PAC ---
Date/Time of Note Date/Time of Note DATE: 03/03/19 TIME: 13:47 Post-Anesthesia Notes Post-Anesthesia Note Last documented vital signs Vital Signs Date Temp Pulse Resp B/P (MAP) Pulse Ox O2 O2 Flow FiO2 Time Delivery Rate 03/03/19 97.5 84 16 94/53 (67) 98 Room Air 12:14 Activity: WNL Respiratory function: WNL Cardiovascular function: WNL Mental status: Baseline Pain reasonably controlled: Yes Hydration appropriate: Yes Nausea/Vomiting absent: Yes Comments BP 155/65 Sp02 100% HR 101 RR 14 T 97.9 ALEC DENNISON PATTERNMAKER APPRENTICE WOOD Mar 03, 2019 13:47
--- NOTE | 2019-03-03 13:48 | PDOCDIS ---
Discharge Instructions CONDITION [id number] Patient Condition: [id number] Stable ACTIVITY: [id number] Activity Restrictions: Irtao3v No Weight Bearing (non weight bearing to left foot) Gybho2Ep Bathing Restrictions: [id number] Sponge Bath FOLLOW UP/APPOINTMENTS Follow-up Plan Patient to follow up in [facility] wound care clinic 03/10/19 Call to confirm appointment time. OTHER ORDERS: Other Orders: keep dressings clean dry and intact, do not get wet. Elevate foot and offload with pillows when resting in bed. VERONICA BARRIOS DPM Mar 03, 2019 13:48
[2019-03-03] MEDS ORDERED: FENTAnyl 50 MCG/ML VIAL IV PRN ×2 (14:00)
[2019-03-03] MEDS ORDERED: OXYCODONE/ACETAMINOPHEN (5/325) TAB PO PRN ×2 (14:00)
[2019-03-03] MEDS ORDERED: HYDROmorphONE 1 MG/5 ML IV SYRINGE IV PRN ×2 (14:00)
[2019-03-03] MEDS ORDERED: KETOROLAC 30 MG INJ IV PRN (14:00)
[2019-03-03] MEDS ORDERED: ONDANSETRON 4 MG INJ IV PRN (14:00)
[2019-03-03] MEDS ORDERED: MEPERIDINE 25 MG INJ IV PRN (14:00)
== END 2019-03-03 15:55 | disposition home or self-care (01) ==
LOC: SDS 10:35
PROVIDERS: ATTEND Podiatrist Foot & Ankle Surgery
DX: E11.621 Type 2 diabetes mellitus with foot ulcer (principal); E11.42 Type 2 diabetes mellitus with diabetic polyneuropathy; Z79.82 Long term (current) use of aspirin; Z79.84 Long term (current) use of oral hypoglycemic drugs; Z79.4 Long term (current) use of insulin
CPT/HCPCS: 15120; 82962; J0690; J1100; J2405; J3010

== ENCOUNTER 2019-04-20 06:56 | Emergency (ER) | payer OTHER ==
[~2019-04-20] VITALS: Ht 172.7 cm; Wt 114.5 kg
[~2019-04-20 06:56] MED LIST changes: -ASPI-1044 PO; +ASPI81TA52 PO; -CEFAZOLIN 2 GM/50 ML (PMX) 50 ML IVPB ONE; -CEFT2PIG2 IVPB; -CHOL200073 PO; +GABA100C14 PO; +INSU100I12 SQ; -Insulin Glargine SC; -LACT1CAP28 PO; +LACT1CAP47 PO; +LISI2.5T59 PO; -NOVO3I SC; -SEVOFLURANE 15 MIN ONE
[2019-04-20 07:00] VITALS: Ht 172.7 cm; Wt 114.5 kg
[2019-04-20 07:23] VITALS: BP 157/83; PULSE 83; RESP 18
--- NOTE | 2019-04-20 07:52 | ERD ---
ER Documentation Chief Complaint Chief Complaint diabetic foot ( left) HPI 44-year-old male history of diabetes with fairly recent amputation of the fifth toe of the left foot. The patient states that he just went back to work and was walking with normal shoes. He notes a blister on the plantar surface of his lef t foot. No significant drainage or discharge or pain. No warmth redness or swelling is noted. He denies any fevers or chills. Blister is only been present for 1 to 2 days. Blood pressure is noted to be elevated at triage. He denies any chest pain shortness of breath headache or decreased urine output. ROS All systems reviewed and are negative except as per history of present illness. Medications Home Meds Reported Medications Lactobacillus Acidophilus (Probiotic) 1 Each Capsule, 1 CAP PO DAILY, CAP 03/03/19 Gabapentin* (Gabapentin*) 100 Mg Capsule, 100 MG PO BID, #90 CAP 03/03/19 Lisinopril* (Lisinopril*) 2.5 Mg Tablet, 2.5 MG PO DAILY, #30 TAB 03/03/19 Aspirin (Low Dose Aspirin) 81 Mg Tablet.dr, 81 MG PO DAILY, #30 TAB 03/03/19 Repaglinide* (Prandin*) 2 Mg Tablet, 2 MG PO AC MEALS, TAB 03/03/19 Metformin Hcl* (Metformin Hcl*) 500 Mg Tablet, 500 MG PO WITH LUNCH, #30 TAB 03/03/19 Insulin Lispro (Humalog Kwikpen U-100) 100 Unit/1 Ml Insuln.pen, 10 UNIT SQ AC A, EA 03/03/19 Allergies Allergies: Coded Allergies: No Known Allergy (Unverified , 03/03/19) PMhx/Soc History of Surgery: Yes (amputation 5th digit foot) Anesthesia Reaction: No Hx Neurological Disorder: Yes (neuropaty) Hx Respiratory Disorders: No Hx Cardiac Disorders: Yes (htn) Hx Psychiatric Problems: No Hx Miscellaneous Medical Probl: No Hx Alcohol Use: No Hx Substance Use: No Hx Tobacco Use: No Smoking Status: Never smoker FmHx Family History: No diabetes Physical Exam Vitals Vital Signs Date Temp Pulse Resp B/P (MAP) Pulse Ox O2 O2 Flow FiO2 Time Delivery Rate 04/20/19 83 18 157/83 Room Air 07:23 (107) 04/20/19 97.6 74 19 203/91 99 07:00 (128) Physical Exam General: Well developed, well nourished, no acute distress Head: Normocephalic, atraumatic. Eyes: EOM intact ENT: Moist mucous membranes Neck: Full ROM Respiratory: No respiratory distress Cardiovascular: Well perfused distally Abdominal: Nondistended : Deferred MSK: The patient is a blister noted to the plantar surface of the left foot that is unroofed, the base of the wound is well-appearing, no drainage or discharge. The foot is otherwise well-appearing without significant warmth or tenderness. Patient's amputation site is well-appearing without drainage or discharge. Neurologic: Alert and oriented, moving all extremities, normal speech, steady gait Skin: No rash Psych: Normal mood Procedures/MDM Clinical exam is consistent with an unroofed blister without signs or symptoms concerning for deeper space infection. The patient is a diabetic and needs good wound care but no signs or symptoms of infectious process that warrants ant ibiotics. No indication for laboratory testing or diagnostic imaging given extremely low pretest probability for osteomyelitis. Patient's blood pressure was elevated (>120/80) but appears stable without evidence of hypertensive emergency or urgency. The patient was counseled about the risks of hypertension and urged to pursue outpatient monitoring and therapy within a week with their primary care physician. I spoke to Dr. Sin, on-call for Dr. Orona He states that he can see the patient in the amputation prevention center this morning. The patient will be discharged and will walk directly there. The patient does not have an identifiable emergent medical condition that warrants inpatient hospitalization at this time. The patient is deemed safe for discharge with outpatient follow-up. We discussed follow up with the patient's primary care doctor within 24 to 48 hours as needed. We also discussed return to the emergency room for worsening symptoms or worsening condition. Outpatient referral: Amputation prevention center Discharge Medications: None required Departure Diagnosis: Primary Impression: Blister of foot, left Encounter type: initial encounter Qualified Codes: S90.822A - Blister (nonthermal), left foot, initial encounter Additional Impression: Asymptomatic hypertension Condition: Stable Patient Instructions: Blister, Diabetic Foot Care Referrals: EDWARDO SIN DPM, ALEX [facility] Additional Instructions: You can go to the [facility] today for evaluation. KULDEEP CALDERON MD Apr 20, 2019 07:52
== END 2019-04-20 07:55 | disposition home or self-care (01) ==
LOC: E/R 06:56
DX: S90.822A Blister (nonthermal), left foot, initial encounter (principal); I10 Essential (primary) hypertension; E11.621 Type 2 diabetes mellitus with foot ulcer; L97.529 Non-pressure chronic ulcer of other part of left foot with unspecified severity; X58.XXXA Exposure to other specified factors, initial encounter; Y92.9 Unspecified place or not applicable; Z79.4 Long term (current) use of insulin; Z79.82 Long term (current) use of aspirin
CPT/HCPCS: 99282

== ENCOUNTER 2019-07-30 12:19 | Emergency (ER) | payer OTHER ==
[~2019-07-30] VITALS: Ht 185.4 cm; Wt 112.0 kg
[~2019-07-30 12:19] MED LIST changes: +CIPR500T4 PO; +LACT1CAP57 PO; +LOPE2CAP PO
[2019-07-30 12:41] VITALS: BP 127/80; PULSE 87; RESP 18; Ht 185.4 cm; Wt 112.0 kg
== END 2019-07-30 13:26 | disposition home or self-care (01) ==
LOC: FTE 12:19
DX: A09 Infectious gastroenteritis and colitis, unspecified (principal); I10 Essential (primary) hypertension; E11.9 Type 2 diabetes mellitus without complications; Z79.82 Long term (current) use of aspirin; Z79.4 Long term (current) use of insulin
CPT/HCPCS: 99283